=== PATIENT | male | born 1970 | race Caucasian/White ===

== ENCOUNTER 2019-12-05 12:39 | Observation (INO) | payer MEDICAID, OTHER ==
[~2019-12-05] VITALS: Ht 190.5 cm; Wt 133.4 kg
[2019-12-05 13:00] LABS: BASOPHILS % (AUTO) 0 % (0-10); EOSINOPHILS # (AUTO) 0.1 10^3/uL (0.0-0.3); EOSINOPHILS % (AUTO) 1 % (0-10); HEMATOCRIT 46 % (40-54); HEMOGLOBIN 15.7 G/DL (13.3-17.7); LYMPHOCYTES # (AUTO) 2.9 X 10^3 (1.0-4.0); LYMPHOCYTES % (AUTO) 44 % (12-44); MEAN CORPUSCULAR HEMOGLOBIN 29 PG (25-34); MEAN CORPUSCULAR HGB CONC 34 G/DL (32-36); MEAN CORPUSCULAR VOLUME 86 FL (80-99); MEAN PLATELET VOLUME 8.8 FL (7.4-10.4); MONOCYTES # (AUTO) 0.7 X 10^3 (0.0-1.0); MONOCYTES % (AUTO) 11 % (0-12); NEUTROPHILS # (AUTO) 2.9 X 10^3 (1.8-7.8); NEUTROPHILS % (AUTO) 45 % (42-75); PLATELET COUNT 286 10^3/uL (130-400); RED CELL DISTRIBUTION WIDTH 13.1 % (10.0-14.5); WHITE BLOOD COUNT 6.5 10^3/uL (4.3-11.0)
[2019-12-05] MEDS ORDERED: NITROGLYCERIN 0.4 MG SL TABS BTL 25'S SL PRN ×2 (13:00→15:00)
[2019-12-05] MEDS ORDERED: ASPIRIN 81 MG CHEW (CHILDREN'S ASA) PO ONE (13:00)
--- NOTE | 2019-12-05 13:16 | ED Chest Pain ---
General Chief Complaint: Chest Pain Stated Complaint: CHEST TIGHTNESS Nursing Triage Note: Pt amb to room #10 with c/o L sided chest discomfort radiating to L arm. 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 Pt describes discomfort as tight, sharp, et heavy. Pt states, "I have a thick tongue." Pt reports brief episode of SOA but denies at this time. A&OX4. Nursing Sepsis Screen: No Definite Risk Source: patient Exam Limitations: no limitations History of Present Illness Date Seen by Provider: Dec 05, 2019 Time Seen by Provider: 12:54 Initial Comments Here with report of left-sided chest tightness/discomfort that is associated with shortness of breath. Onset at about 10 AM which is actually 3 hours ago. He has this not uncommonly. Was seen in July of last year at [facility] and [place] and transferred to [facility] in [place]. He had a 3 day inpatient stay related testing as well as stress test and cleared him with the understanding that if he had persistence or return pain he needed to come back for heart catheter. Not long after discharge in July he started getting the c hest pain again that he was controlling with nitroglycerin sublingual. That did help. Today he was out of his nitroglycerin and presented for the chest pain with this story. Does have strong family history with father and brother with heart attack at about his age. There is also strong family history of hypertension and cholesterol problems as well as cancer. Did have diarrheal ill ness a few days ago that is resolving. Does not feel ill effects otherwise now. Timing/Duration: 1-3 hours, intermittent Severity/Quality: moderate, pressure, tightness Location: central Radiation: no radiation Activities at Onset: none Prior CP/Workup: stress test ASA po DIRECTOR GLOBAL: No NTG SL DIRECTOR GLOBAL: No Associated Symptoms: No abdominal pain, No back pain, No diaphoresis, No edema; fatigue; No fever/chills, No nausea/vomiting; shortness of breath; No weakness Allergies and Home Medications Allergies Coded Allergies: No Known Drug Allergies (Unverified , 12/05/19) Patient Home Medication List Home Medication List Reviewed: Yes Review of Systems Review of Systems Constitutional: see HPI EENTM: No Symptoms Reported Respiratory: See HPI, Shortness of Air; Denies Wheezing Cardiovascular: Chest Pain; Denies Edema Gastrointestinal: See HPI Genitourinary: No Symptoms Reported Musculoskeletal: no symptoms reported Skin: no symptoms reported Psychiatric/Neurological: No Symptoms Reported All Other Systems Reviewed Negative Unless Noted: Yes Past Pqwevts-Iszayg-Grolwx Hx Past Med/Social Hx: Reviewed Nursing Past Med/Soc Hx Patient Social History Alcohol Use: Denies Use Recreational Drug Use: No Smoking Status: Never a Smoker 2nd Hand Smoke Exposure: No Recent Foreign Travel: No Contact w/Someone Who Travel: No Recent Infectious Disease Expo: No Recent Hopitalizations: No Seasonal Allergies Seasonal Allergies: No Past Medical History Surgeries: No Respiratory: No Cardiac: Yes High Cholesterol, Hypertension Neurological: No Genitourinary: No Gastrointestinal: No Musculoskeletal: No Endocrine: No HEENT: No Cancer: No Psychosocial: No Integumentary: No Family Medical History Reviewed Nursing Family Hx No Pertinent Family Hx Physical Exam Vital Signs Vital Signs - First Documented Capillary Refill : Less Than 3 Seconds Height, Weight, BMI Height: '" Weight: lbs. oz. kg; 37.00 BMI Method: General Appearance: No Apparent Distress, WD/WN HEENT: PERRL/EOMI, Pharynx Normal Neck: Non Tender, Supple Respiratory: Lungs Clear, Normal Breath Sounds Cardiovascular: Regular Rate, Rhythm, No Murmur Gastrointestinal: Non Tender, Soft Extremity: Normal Range of Motion, Non Tender Neurologic/Psychiatric: Alert, Oriented x3 Skin: Normal Color, Warm/Dry Progress/Results/Core Measures Results/Orders Lab Results Laboratory Tests Test 12/05/19 12:50 Range/Units White Blood Count 6.5 4.3-11.0 10^3/uL Red Blood Count 5.34 4.35-5.85 10^6/uL Hemoglobin 15.7 13.3-17.7 G/DL Hematocrit 46 40-54 % Mean Corpuscular Volume 86 80-99 FL Mean Corpuscular Hemoglobin 29 25-34 PG Mean Corpuscular Hemoglobin Concent 34 32-36 G/DL Red Cell Distribution Width 13.1 10.0-14.5 % Platelet Count 286 130-400 10^3/uL Mean Platelet Volume 8.8 7.4-10.4 FL Neutrophils (%) (Auto) 45 42-75 % Lymphocytes (%) (Auto) 44 12-44 % Monocytes (%) (Auto) 11 0-12 % Eosinophils (%) (Auto) 1 0-10 % Basophils (%) (Auto) 0 0-10 % Neutrophils # (Auto) 2.9 1.8-7.8 X 10^3 Lymphocytes # (Auto) 2.9 1.0-4.0 X 10^3 Monocytes # (Auto) 0.7 0.0-1.0 X 10^3 Eosinophils # (Auto) 0.1 0.0-0.3 10^3/uL Basophils # (Auto) 0.0 0.0-0.1 10^3/uL Prothrombin Time 14.2 12.2-14.7 SEC INR Comment 1.1 0.8-1.4 Activated Partial Thromboplast Time 28 24-35 SEC Sodium Level 139 135-145 MMOL/L Potassium Level 4.2 3.6-5.0 MMOL/L Chloride Level 105 98-107 MMOL/L Carbon Dioxide Level 25 21-32 MMOL/L Anion Gap 9 5-14 MMOL/L Blood Urea Nitrogen 16 7-18 MG/DL Creatinine 1.26 0.60-1.30 MG/DL Estimat Glomerular Filtration Rate > 60 BUN/Creatinine Ratio 13 Glucose Level 99 70-105 MG/DL Calcium Level 9.1 8.5-10.1 MG/DL Corrected Calcium 8.7 8.5-10.1 MG/DL Magnesium Level 2.0 1.6-2.4 MG/DL Total Bilirubin 0.3 0.1-1.0 MG/DL Aspartate Amino Transf (AST/SGOT) 20 5-34 U/L Alanine Aminotransferase (ALT/SGPT) 19 0-55 U/L Alkaline Phosphatase 71 40-136 U/L Myoglobin 57.1 10.0-92.0 NG/ML Troponin I < 0.028 <0.028 NG/ML Total Protein 7.2 6.4-8.2 GM/DL Albumin 4.5 3.2-4.5 GM/DL My Orders Orders - GEOVANI GALVIN MD Nitroglycerin 0.4 Mg Btl 25's (Nitrostat (12/05/19 13:00) Aspirin Chewable Tablet (Baby Aspirin Ch (12/05/19 13:00) Metoprolol Succinate (Xl) Tab (Toprol Xl (12/06/19 09:00) Metoprolol Succinate (Xl) Tab (Toprol Xl (12/05/19 14:10) Medications Given in ED Current Medications Medications Dose Ordered Sig/Viji Route Start Time Stop Time Status Last Admin Dose Admin Aspirin 324 mg ONCE ONCE PO 12/05/19 13:00 12/05/19 13:01 DC 12/05/19 13:03 324 MG Nitroglycerin 0.4 mg UD PRN SL 12/05/19 13:00 12/05/19 13:04 0.4 MG Vital Signs/I&O 12/05/19 12/05/19 12:39 12:39 Temp 35.2 Pulse 101 Resp 20 B/P (MAP) 148/103 (118) Pulse Ox 97 O2 Delivery Room Air Room Air Blood Pressure Mean: 118 Progress Progress Note : Progress Note Seen and evaluated. IV, labs, EKG and chest x-ray ordered. ASA 324 mg by mouth. Nitroglycerin sublingual ordered. Toprol-XL 50 mg by mouth. Monitor patient. I did discuss the case with Dr. Jacob and he is recommending admission with likely her tomorrow. Patient is from [facility] and his doctor is over there as association with the [facility]. 1412: Labs and results reviewed with both Dr. Jacob and Dr. Munguia. Dr. Becerra accepts patient for admission, observation status with Dr. Jacob on consult. Anticipate heart catheterization tomorrow. All of this was discussed with the patient who agrees. Initial ECG Impression Date: Dec 05, 2019 Initial ECG Impression Time: 12:43 Initial ECG Rate: 95 Initial ECG Rhythm: Normal Sinus Comment Sinus rhythm with left atrial abnormality. No evidence of ST elevation AR. No previous available for comparison. Interpreted by me. Diagnostic Imaging Diagonstic Imaging: Xray Plain Films/CT/US/NM/MRI: chest Comments [facility], [facility]. [place], [place] NAME: NAZANINJOSSY DUMONT Isidoro [facility] REC#: [id number] PT STATUS: REG ER : 1970 PHYSICIAN: MARELY DELGADO APRN ADMIT DATE: 12/05/19/ER Draft Date of Exam:12/05/19 CHEST 1 VIEW, AP/PA ONLY INDICATION: Left-sided chest discomfort radiating to the left arm. TIME OF EXAM: 1:08 p.m. COMPARISON: No prior studies are available for comparison. FINDINGS: Spinal stimulator overlies the mid thoracic spine. The heart size is normal. The pulmonary vascularity is normal. No infiltrates are seen. There is no effusion or pneumothorax. IMPRESSION: No acute cardiopulmonary process is detected. Dictated on workstation # [id number] Dict: 12/05/19 1323 Trans: 12/05/19 1325 [facility] [id number] Interpreted by: UMANG ANN MD Electronically signed by: Departure Communication (Admissions) Time/Spoke to Admitting Phy: 14:12 Time/Spoke to Consulting Phy: 13:30 Impression Primary Impression: Chest pain Qualified Codes: R07.9 - Chest pain, unspecified Disposition: ADMITTED INPATIENT Condition: Stable Admissions Decision to Admit Reason: Admit from ER (Trauma) Decision to Admit/Date: Dec 05, 2019 Time/Decision to Admit Time: 13:30 Departure-Patient Inst. Referrals: DAWN BURTON DO (PCP) Primary Care Physician GEOVANI GALVIN MD Dec 05, 2019 13:16
[2019-12-05 13:22] LABS: INR 1.1 (0.8-1.4); PROTHROMBIN TIME PATIENT 14.2 SEC (12.2-14.7)
--- NOTE | 2019-12-05 13:25 | Diagnostic Imaging Report ---
INDICATION: Left-sided chest discomfort radiating to the left arm. TIME OF EXAM: 1:08 p.m. COMPARISON: No prior studies are available for comparison. FINDINGS: Spinal stimulator overlies the mid thoracic spine. The heart size is normal. The pulmonary vascularity is normal. No infiltrates are seen. There is no effusion or pneumothorax. IMPRESSION: No acute cardiopulmonary process is detected. Dictated by: Dictated on workstation # [id number]
[2019-12-05 13:32] LABS: ALANINE AMINOTRANSFERASE 19 U/L (0-55); ALBUMIN 4.5 GM/DL (3.2-4.5); ALKALINE PHOSPHATASE 71 U/L (40-136); BILIRUBIN,TOTAL 0.3 MG/DL (0.1-1.0); BUN/CREATININE RATIO 13; CALCIUM 9.1 MG/DL (8.5-10.1); CARBON DIOXIDE 25 MMOL/L (21-32); CHLORIDE 105 MMOL/L (98-107); CREATININE SERUM 1.26 MG/DL (0.60-1.30); GFR ESTIMATED > 60; GLUCOSE 99 MG/DL (70-105); POTASSIUM 4.2 MMOL/L (3.6-5.0); SODIUM 139 MMOL/L (135-145); TOTAL PROTEIN 7.2 GM/DL (6.4-8.2)
[2019-12-05] MEDS ORDERED: meTOproloL SUCCINATE 50 MG (TOPROL XL) TAB PO ONE (14:10)
[2019-12-05] MEDS ORDERED: CATHETER FLUSH 10 ML SYR IV PRN (15:00)
[2019-12-05] MEDS ORDERED: ONDANSETRON 4 MG/2 ML (SDV) Z0FRAN IV PRN (15:00)
[2019-12-05] MEDS ORDERED: morphine INJ 4 MG/ML 1 ML (VIAL/SYRINGE) IV PRN (15:00)
[2019-12-05 15:02] VITALS: BP 156/84
--- NOTE | 2019-12-05 15:14 | Consultation-Cardiology ---
HPI-Cardiology Cardiology Consultation: Date of Consultation 12/05/19 Time Seen by a Provider: 15:05 Date of Admission 12-05-2019 Attending Physician Claudia Munguia MD Admitting Physician Marcelino Tate Consulting Physician Therese Jacob MD HPI: Chief Complaint: Chest pain Mr. Thacker is a 49 year old male admitted to ICU 5 from the ED. He reports he has been having intermittent episodes of left sided chest pain for the last 6 months. He states he has been taking nitro sublingual approx twice a month for chest pain. He reports it has been more frequent the last couple days. 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 He reports feeling SOB, hard heartbeat, dizziness. He states he felt warm and flushed. He states the pain was dull, but with increased emotional distress would become sharp. He reports it persisted for several hours and he came to the ED. He reports he received nitro in the ED and the pain resolved and he is currently pain free. He reports he has been waking up with headaches and felt his blood pressure was elevated, so he has been taking 10mg of Lisinopril, which belongs to his sister. He denies any syncope or near syncope. He reports occ bilat LE swelling in ankles, least in the morning and worse at the end of the day. He reports he has had some diarrhea. He denies any n/v. H does not report any fever or chills. He reports he smokes occ marijuana, last usage in October. He states he was seen last year at [facility] in [place] for similar symptoms; at which time he had a stress test and echo. He reports he was told they were normal. Review of Systems-Cardiology Review of Systems Constitutional: No chills, No fever; tiredness Eyes: No vision change Ears/Nose/Throat: No epistaxis, No recent hearing loss Respiratory: As described under HPI Cardiovascular: As described under HPI Gastrointestinal: As described under HPI Genitourinary: No dysuria, No hematuria Musculoskeletal: back pain (chronic) Skin: No rash on exposed areas, No ulcerations on exposed areas Psychiatric/Neurological: anxiety, depression; No seizure, No focal weakness, No syncope Hematologic: No bleeding abnormalities All Other Systems Reviewed Negative Unless Noted: Yes EJH-Tqlqpk-Jiivft Hx Patient Social History Alcohol Use: Denies Use Recreational Drug Use: No Smoking Status: Never a Smoker 2nd Hand Smoke Exposure: No Recent Foreign Travel: No Recent Infectious Disease Expo: No Hospitalization with Isolation: Denies Immunizations Up To Date Date of Influenza Vaccine: Nov 01, 2019 Past Medical History PMH As described under Assessment. Family Medical History Family Medical History: He reports his father had an LA in his early 50's with CABG and subsequent cardiac stent placement. His brother had an LA at age 50. Allergies and Home Medications Allergies Coded Allergies: No Known Drug Allergies (Unverified , 12/05/19) Home Medications Albuterol Sulfate 1 Puff Puff, 2 PUFF IH Q4H 1 PUFF = 90 MCG Prescribed by: TRACE GORDILLO on 12/05/191812 Alprazolam 0.5 Mg Tablet, 0.5 MG PO HS Prescribed by: TRACE GORDILLO on 12/05/191812 Cetirizine HCl 10 Mg Tablet, 10 MG PO DAILY Prescribed by: TRACE GORDILLO on 12/05/191812 Cimetidine HCl 300 Mg/5 Ml Solution, 300 MG PO DAILY Prescribed by: TRACE GORDILLO on 12/05/191812 Desvenlafaxine 50 Mg Tab.er.24, 50 MG PO HS Prescribed by: TRACE GORDILLO on 12/05/191812 Gemfibrozil 600 Mg Tablet, 600 MG PO DAILY Prescribed by: TRACE GORDILLO on 12/05/191812 Hyoscyamine Sulfate 0.125 Mg Tablet, 0.125 MG PO PRN Prescribed by: TRACE GORDILLO on 12/05/191812 Testosterone Cypionate 100 Mg/1 Ml Vial, 100 MG IM NEEDED TWICE MONTHLY Prescribed by: TRACE GORDILLO on 12/05/191813 Physical Exam-Cardiology Physical Exam Vital Signs/I&O Capillary Refill : Less Than 3 Seconds Constitutional: AAO x 3, well-developed, well-nourished HEENT: PERRL, hearing is well preserved, oral hygience is good Neck: No carotid bruit; carotid pulses are 2 + bilaterally Respiratory: No accessory muscle use, No respiratory distress; chest expansion is symmetric, chest is bilaterally symmetric, lungs clear to auscultation Cardiovascular: regular rate-rhythm; No JVD; S1 and S2 Gastrointestinal: No tender; soft, round, audible bowel sounds Extremities: no lower extremity edema bilateral Neurologic/Psychiatric: grossly intact (moves all extremities) Skin: No rash on exposed areas, No ulcerations on exposed areas Data Review Labs Radiology NAME: JOSSY THACKER MED REC#: [id number] PT STATUS: REG ER : 1970 PHYSICIAN: MARELY DELGADO APRN ADMIT DATE: 12/05/19/ER Draft Date of Exam:12/05/19 CHEST 1 VIEW, AP/PA ONLY INDICATION: Left-sided chest discomfort radiating to the left arm. TIME OF EXAM: 1:08 p.m. COMPARISON: No prior studies are available for comparison. FINDINGS: Spinal stimulator overlies the mid thoracic spine. The heart size is normal. The pulmonary vascularity is normal. No infiltrates are seen. There is no effusion or pneumothorax. IMPRESSION: No acute cardiopulmonary process is detected. Dictated on workstation # [id number] Dict: 12/05/19 1323 Trans: 12/05/19 1325 [facility] [id number] Interpreted by: UMANG ANN MD Electronically signed by: ECG Impression ECG Initial ECG Rhythm: Normal Sinus A/P-Cardiology Assessment/Admission Diagnosis Chest pain of undetermined etiology Reports stress test and echo last year at [facility] in [place], [place] HTN HLP Sleep apnea - CPAP tx Anxiety/depression GERD IBS Reported h/o gastric polyps Chronic back pain with multiple surgeries and implanted stimulator Multiple bilat shoulder, elbow and wrist surgeries Occ marijuana usage - reports last usage in October Asthma Family h/o early CAD (father and brother in their 50's) Testosterone replacement Discussion and Recomendations Chest pain of undetermined etiology - no evidence of ACS thus far Based on his symptoms, risk factors we advise cardiac cath and he, himself is requesting cardiac cath. We have discussed the procedure, risks, benefits and potential complications of cardiac cath with possible ad hoc coronary intervention. He provides informed consent. We will proceed tomorrow or sooner if needed Continue BB and ASA Lovenox for DVT prophylaxis Echocardiogram to eval structure Further recs will be based on his hospital course We would like to thank medical services for this consult Clinical Quality Measures AMI/AHF: ASA po Prior to arrival: SHARON Rios 6, 2020 15:14
[2019-12-05 16:00] VITALS: BP 139/90
[2019-12-05] MEDS ORDERED: ENOXAPARIN 40 MG/0.4 ML (LOVENOX) SYR SQ SCH (16:30)
[2019-12-05 16:59] VITALS: BP 131/79
--- NOTE | 2019-12-05 17:28 | Consultation-Cardiology ---
HPI-Cardiology Cardiology Consultation: Date of Consultation 12/05/19 Time Seen by a Provider: 16:30 Date of Admission Attending Physician Claudia Munguia MD Admitting Physician Marcelino Tate Consulting Physician JOHN MCGUIRE MD, MA, FACP, FACC, [employer], CCDS HPI: Chief Complaint: CC: Chest pain HPI Mr. Thacker is a 49 year old male admitted to ICU 5 from the ED. He reports he has been having intermittent episodes of left sided chest pain for the last 6 months. He states he has been taking nitro sublingual approx twice a month for chest pain. He reports it has been more frequent the last couple days. 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 He reports feeling SOB, hard heartbeat, dizziness. He states he felt warm and flushed. He states the pain was dull, but with increased emotional distress would become sharp. He reports it persisted for several hours and he came to the ED. He reports he received nitro in the ED and the pain resolved and he is currently pain free. He reports he has been waking up with headaches and felt his blood pressure was elevated, so he has been taking 10mg of Lisinopril, which belongs to his sister. He denies any syncope or near syncope. He reports occ bilat LE swelling in ankles, least in the morning and worse at the end of the day. He reports he has had some diarrhea. He denies any n/v. H does not report any fever or chills. He reports he smokes occ marijuana, last usage in October. He states he was seen last year at [facility] in [place] for similar symptoms; at which time he had a stress test and echo. He reports he was told they were normal. Review of Systems-Cardiology Review of Systems Constitutional: No chills, No fever; tiredness Eyes: No vision change Ears/Nose/Throat: No epistaxis, No recent hearing loss Respiratory: As described under HPI Cardiovascular: As described under HPI Gastrointestinal: As described under HPI Genitourinary: No dysuria, No hematuria Musculoskeletal: back pain (chronic) Skin: No rash on exposed areas, No ulcerations on exposed areas Psychiatric/Neurological: anxiety, depression; No seizure, No focal weakness, No syncope Hematologic: No bleeding abnormalities All Other Systems Reviewed Negative Unless Noted: Yes WLG-Vgjsqp-Uzvblj Hx Patient Social History Alcohol Use: Denies Use Recreational Drug Use: No Smoking Status: Never a Smoker 2nd Hand Smoke Exposure: No Recent Foreign Travel: No Recent Infectious Disease Expo: No Hospitalization with Isolation: Denies Immunizations Up To Date Date of Influenza Vaccine: Nov 01, 2019 Past Medical History PMH As described under Assessment. Family Medical History Family Medical History: He reports his father had an NJ in his early 50's with CABG and subsequent cardiac stent placement. His brother had an NJ at age 50. Allergies and Home Medications Allergies Coded Allergies: No Known Drug Allergies (Unverified , 12/05/19) Patient Home Medication List Home Medication List Reviewed: Yes Physical Exam-Cardiology Physical Exam Vital Signs/I&O 12/05/19 12/05/19 12/05/19 12/05/19 12:39 12:39 14:45 15:02 Temp 35.2 35.2 36.8 Pulse 101 92 87 Resp 20 18 16 B/P (MAP) 148/103 (118) 115/77 (118) 156/84 Pulse Ox 97 98 97 O2 Delivery Room Air Room Air Room Air Room Air 12/05/19 12/05/19 12/05/19 12/05/19 15:15 16:00 16:30 16:59 Temp 36.8 Pulse 85 Resp 18 B/P (MAP) 139/90 (106) 131/79 (96) Pulse Ox 97 O2 Delivery Room Air Room Air Room Air Capillary Refill : Less Than 3 Seconds Constitutional: AAO x 3, well-developed, well-nourished HEENT: PERRL, hearing is well preserved, oral hygience is good Neck: No carotid bruit; carotid pulses are 2 + bilaterally Respiratory: No accessory muscle use, No respiratory distress; chest expansion is symmetric, chest is bilaterally symmetric, lungs clear to auscultation Cardiovascular: regular rate-rhythm; No JVD; S1 and S2 Gastrointestinal: No tender; soft, round, audible bowel sounds Extremities: no lower extremity edema bilateral Neurologic/Psychiatric: grossly intact (moves all extremities) Skin: No rash on exposed areas, No ulcerations on exposed areas Data Review Labs Laboratory Tests 12/05/19 12:50: White Blood Count 6.5, Red Blood Count 5.34, Hemoglobin 15.7, Hematocrit 46, Mean Corpuscular Volume 86, Mean Corpuscular Hemoglobin 29, Mean Corpuscular Hemoglobin Concent 34, Red Cell Distribution Width 13.1, Platelet Count 286, Mean Platelet Volume 8.8, Neutrophils (%) (Auto) 45, Lymphocytes (%) (Auto) 44, Monocytes (%) (Auto) 11, Eosinophils (%) (Auto) 1, Basophils (%) (Auto) 0, Neutrophils # (Auto) 2.9, Lymphocytes # (Auto) 2.9, Monocytes # (Auto) 0.7, Eosinophils # (Auto) 0.1, Basophils # (Auto) 0.0, Prothrombin Time 14.2, INR Comment 1.1, Activated Partial Thromboplast Time 28, Sodium Level 139, Potassium Level 4.2, Chloride Level 105, Carbon Dioxide Level 25, Anion Gap 9, Blood Urea Nitrogen 16, Creatinine 1.26, Estimat Glomerular Filtration Rate > 60, BUN/Creatinine Ratio 13, Glucose Level 99, Calcium Level 9.1, Corrected Calcium 8.7, Magnesium Level 2.0, Total Bilirubin 0.3, Aspartate Amino Transf (AST/SGOT) 20, Alanine Aminotransferase (ALT/SGPT) 19, Alkaline Phosphatase 71, Myoglobin 57.1, Troponin I < 0.028, Total Protein 7.2, Albumin 4.5 A/P-Cardiology Assessment/Admission Diagnosis Chest pain of undetermined etiology Reports stress test 2019 at [facility] did not show significant problems but was advised to consider cath if cp recurrent Echo of 12/05/19: LVEF 60-65%, mild to mod enlargement of LA, RVSP 12 mmHg HTN HLP Sleep apnea - CPAP tx Anxiety/depression GERD IBS Reported h/o gastric polyps Chronic back pain with multiple surgeries and implanted stimulator Multiple bilat shoulder, elbow and wrist surgeries Occ marijuana usage - reports last usage in October Asthma Family h/o early CAD (father and brother in their 50's) Testosterone replacement Discussion and Recomendations He has been having frequent symptoms and is concerned about a coronary etiology. He himself is requesting card cath. Based on his symptoms and risk factors, cath appears appropriate. We have discussed the procedure, risks, benefits and potential complications of cardiac cath with possible ad hoc coronary intervention. He provides informed consent. We will proceed tomorrow or sooner if needed Continue BB and ASA Lovenox for DVT prophylaxis Further recs will be based on his hospital course We would like to thank Medical services for this consult Clinical Quality Measures AMI/AHF: ASA po Prior to arrival: No DVT/VTE Risk/Contraindication: Risk Factor Score Per Nursin RFS Level Per Nursing on Admit: 2=Moderate JOHN MCGUIRE MD FACP FAC CCDS Dec 05, 2019 17:28
[2019-12-05 18:05] VITALS: BP 150/82
[2019-12-05] MEDS ORDERED: ALPR0.5T7 PO (18:13)
[2019-12-05] MEDS ORDERED: GEMF600T8 PO (18:13)
[2019-12-05] MEDS ORDERED: HYOS-20 PO (18:13)
[2019-12-05] MEDS ORDERED: CETI10TA17 PO (18:13)
[2019-12-05] MEDS ORDERED: CIME300S4 PO (18:13)
[2019-12-05] MEDS ORDERED: RT-ALBUINH IH (18:13)
[2019-12-05] MEDS ORDERED: DESV50TA14 PO (18:13)
[2019-12-05] MEDS ORDERED: TEST100V3 IM (18:14)
[2019-12-05 19:30] VITALS: BP 132/75
[2019-12-05] MEDS: CATHETER FLUSH 10 ML SYR IV SCH (21:18)
[2019-12-06] VITALS (10 sets, daily range): BP systolic 116–155; BP diastolic 71–86
[2019-12-06 01:40] LABS: BASOPHILS % (AUTO) 0 % (0-10); EOSINOPHILS # (AUTO) 0.2 10^3/uL (0.0-0.3); EOSINOPHILS % (AUTO) 2 % (0-10); HEMATOCRIT 45 % (40-54); HEMOGLOBIN 15.2 G/DL (13.3-17.7); LYMPHOCYTES % (AUTO) 57 % (12-44); MEAN CORPUSCULAR HEMOGLOBIN 29 PG (25-34); MEAN CORPUSCULAR HGB CONC 34 G/DL (32-36); MEAN CORPUSCULAR VOLUME 87 FL (80-99); MEAN PLATELET VOLUME 8.9 FL (7.4-10.4); MONOCYTES # (AUTO) 0.6 X 10^3 (0.0-1.0); MONOCYTES % (AUTO) 9 % (0-12); NEUTROPHILS # (AUTO) 2.3 X 10^3 (1.8-7.8); NEUTROPHILS % (AUTO) 32 % (42-75); PLATELET COUNT 254 10^3/uL (130-400)
[2019-12-06 01:55] LABS: PROTHROMBIN TIME PATIENT 13.8 SEC (12.2-14.7)
[2019-12-06 02:03] LABS: ALANINE AMINOTRANSFERASE 18 U/L (0-55); ALBUMIN 4.1 GM/DL (3.2-4.5); ALKALINE PHOSPHATASE 65 U/L (40-136); BILIRUBIN,TOTAL 0.3 MG/DL (0.1-1.0); BUN/CREATININE RATIO 14; CALCIUM 8.9 MG/DL (8.5-10.1); CARBON DIOXIDE 22 MMOL/L (21-32); CHLORIDE 106 MMOL/L (98-107); CHOLESTEROL 187 MG/DL (< 200); CREATININE SERUM 0.96 MG/DL (0.60-1.30); GFR ESTIMATED > 60; GLUCOSE 93 MG/DL (70-105); HDL CHOLESTEROL 26 MG/DL (40-60); POTASSIUM 3.8 MMOL/L (3.6-5.0); SODIUM 138 MMOL/L (135-145); TOTAL PROTEIN 6.5 GM/DL (6.4-8.2); TRIGLYCERIDES 257 MG/DL (<150); VLDL CHOLESTEROL 51 MG/DL (5-40)
[2019-12-06 04:14] LABS: MAGNESIUM 2.1 MG/DL (1.6-2.4); PHOSPHORUS 3.9 MG/DL (2.3-4.7)
[2019-12-06] MEDS ORDERED: KCL 20 MEQ TAB (K-DUR) PO SCH (06:00)
[2019-12-06] MEDS ORDERED: POTASSIUM CL 10MEQ/50ML IVPB 50 ML IV SCH (06:00)
[2019-12-06] MEDS ORDERED: NS IV 1000 ML 1,000 ML IV SCH ×2 (06:00→11:37)
[2019-12-06] MEDS ORDERED: MAGNESIUM 1 GM/100 ML IVPB 100 ML IV SCH (06:00)
[2019-12-06] MEDS: CATHETER FLUSH 10 ML SYR IV SCH ×2 (06:32→13:35)
[2019-12-06] MEDS ORDERED: meTOproloL SUCCINATE 50 MG (TOPROL XL) TAB PO SCH ×3 (09:00)
[2019-12-06] MEDS ORDERED: ASPIRIN E.C. 81 MG (ECOTRIN) TAB PO SCH (09:00)
[2019-12-06] MEDS ORDERED: NS IV 1000 ML 0 ML ONE (09:45)
[2019-12-06] MEDS ORDERED: HEParin (CATH LAB) 2,000 ML IV ONE (09:45)
[2019-12-06] MEDS ORDERED: LIDOCAINE 1% INJ 20 ML 20 ML VIAL ONE (09:45)
[2019-12-06] MEDS ORDERED: MIDAZOLAM 5 MG/5 ML (VERSED) VIAL ONE (10:10)
[2019-12-06] MEDS ORDERED: fentaNYL INJECTION 100 MCG/2 ML AMP ONE (10:10)
--- NOTE | 2019-12-06 10:36 | NUR ---
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
[2019-12-06] MEDS ORDERED: PATIENT MAY USE OWN MEDS, ALL PO SCH (11:45)
--- NOTE | 2019-12-06 11:46 | Progress Note - Cardiology ---
Cardiology SOAP Progress Note Subjective: No cp today No shortness of breath or palp or syncope No n/v/d Objective: I&O/Vital Signs 12/06/19 12/06/19 12/06/19 12/06/19 00:00 00:08 01:00 03:50 Temp 36.4 36.5 Pulse 61 64 62 Resp 18 18 B/P (MAP) 116/72 (87) 131/81 (98) Pulse Ox 99 99 97 O2 Delivery Nasal Cannula Nasal Cannula Nasal Cannula O2 Flow Rate 2.00 2.00 2.00 12/06/19 12/06/19 12/06/19 12/06/19 04:00 07:00 08:00 08:00 Temp 36.6 Pulse 67 Pulse Ox 97 98 O2 Delivery Nasal Cannula Nasal Cannula O2 Flow Rate 2.00 2.00 12/06/19 12/06/19 08:00 09:00 Pulse 77 B/P (MAP) 135/82 (99) Pulse Ox 96 98 O2 Delivery Nasal Cannula Nasal Cannula O2 Flow Rate 2.00 2.00 12/05/19 23:59 Intake Total 1000 ml Output Total 500 ml Balance 500 ml Constitutional: AAO x 3, well-developed, well-nourished Respiratory: No accessory muscle use, No respiratory distress; chest expansion is symmetric, chest is bilaterally symmetric, lungs clear to auscultation Cardiovascular: regular rate-rhythm; No JVD; S1 and S2 Gastrointestional: No tender; soft, round, audible bowel sounds Extremities: no lower extremity edema bilateral Neurologic/Psychiatric: grossly intact (moves all extremities) Skin: No rash on exposed areas, No ulcerations on exposed areas Results/Procedures: Labs Laboratory Tests 12/05/19 12:50: White Blood Count 6.5, Red Blood Count 5.34, Hemoglobin 15.7, Hematocrit 46, Mean Corpuscular Volume 86, Mean Corpuscular Hemoglobin 29, Mean Corpuscular Hemoglobin Concent 34, Red Cell Distribution Width 13.1, Platelet Count 286, Mean Platelet Volume 8.8, Neutrophils (%) (Auto) 45, Lymphocytes (%) (Auto) 44, Monocytes (%) (Auto) 11, Eosinophils (%) (Auto) 1, Basophils (%) (Auto) 0, Neutrophils # (Auto) 2.9, Lymphocytes # (Auto) 2.9, Monocytes # (Auto) 0.7, Eosinophils # (Auto) 0.1, Basophils # (Auto) 0.0, Prothrombin Time 14.2, INR Comment 1.1, Activated Partial Thromboplast Time 28, Sodium Level 139, Potassium Level 4.2, Chloride Level 105, Carbon Dioxide Level 25, Anion Gap 9, Blood Urea Nitrogen 16, Creatinine 1.26, Estimat Glomerular Filtration Rate > 60, BUN/Creatinine Ratio 13, Glucose Level 99, Calcium Level 9.1, Corrected Calcium 8.7, Magnesium Level 2.0, Total Bilirubin 0.3, Aspartate Amino Transf (AST/SGOT) 20, Alanine Aminotransferase (ALT/SGPT) 19, Alkaline Phosphatase 71, Myoglobin 57.1, Troponin I < 0.028, Total Protein 7.2, Albumin 4.5 12/05/19 18:55: Troponin I < 0.028 12/06/19 01:28: White Blood Count 7.0, Red Blood Count 5.21, Hemoglobin 15.2, Hematocrit 45, Mean Corpuscular Volume 87, Mean Corpuscular Hemoglobin 29, Mean Corpuscular Hemoglobin Concent 34, Red Cell Distribution Width 13.0, Platelet Count 254, Mean Platelet Volume 8.9, Neutrophils (%) (Auto) 32L, Lymphocytes (%) (Auto) 57H , Monocytes (%) (Auto) 9, Eosinophils (%) (Auto) 2, Basophils (%) (Auto) 0, Neutrophils # (Auto) 2.3, Lymphocytes # (Auto) 4.0, Monocytes # (Auto) 0.6, Eosinophils # (Auto) 0.2, Basophils # (Auto) 0.0, Prothrombin Time 13.8, INR Comment 1.0, Activated Partial Thromboplast Time 31, Sodium Level 138, Potassium Level 3.8, Chloride Level 106, Carbon Dioxide Level 22, Anion Gap 10, Blood Urea Nitrogen 13, Creatinine 0.96, Estimat Glomerular Filtration Rate > 60, BUN/Creatinine Ratio 14, Glucose Level 93, Calcium Level 8.9, Corrected Calcium 8.8, Magnesium Level 2.1, Total Bilirubin 0.3, Aspartate Amino Transf (AST/SGOT) 17, Alanine Aminotransferase (ALT/SGPT) 18, Alkaline Phosphatase 65, Troponin I < 0.028, Total Protein 6.5, Albumin 4.1, Phosphorus Level 3.9, Triglycerides Level 257H, Cholesterol Level 187, LDL Cholesterol Direct 120, VLDL Cholesterol 51H, HDL Cholesterol 26L Laboratory Tests 12/05/19 12:50 12/06/19 01:28 A/P: Assessment: Chest pain, noncardiac, undetermined etiology Card cath of 12/06/19: No angiographically significant CAD, normal LVEDP, LVEF 60- 65% Echo of 12/05/19: LVEF 60-65%, mild to mod enlargement of LA, RVSP 12 mmHg HTN HLP Sleep apnea - CPAP tx Anxiety/depression GERD IBS Reported h/o gastric polyps Chronic back pain with multiple surgeries and implanted stimulator Multiple bilat shoulder, elbow and wrist surgeries Occ marijuana usage - reports last usage in October Asthma Family h/o early CAD (father and brother in their 50's) Testosterone replacement Plan: I reviewed and discussed with him the cath findings Focus of CV management is on risk factor mod. This was discussed and questions answered We advised further w/u for cp with his pcp Outpt cardiac f/u advised Clinical Quality Measures AMI/AHF: ASA po Prior to arrival: JOHN Clifford MD FACP FAC CCDS Dec 06, 2019 11:46
[2019-12-06] MEDS ORDERED: oxyCODONE/APAP 5/325MG (PERCOCET 5) TABLET PO ONE (12:00)
--- NOTE | 2019-12-06 13:08 | CARDIAC CATHETERIZATION ---
DATE OF SERVICE: 12/06/2019 CARDIAC CATHETERIZATION REPORT The patient is a 49-year-old man with coronary artery disease risk factors who has had frequent chest pains for the last one year. He states that he had normal stress test last year in [place], but was told that if he continues to have chest pain, he may wish to have cardiac catheterization. He has continued to have chest pain and feels concerned about coronary etiology. Cardiac catheterization was carried out today after having obtained informed consent. DESCRIPTION OF PROCEDURE: He was brought to the cardiac catheterization laboratory in a fasting state. Right groin was prepared and draped in the usual sterile fashion. Lidocaine 1% for local anesthesia. Modified Seldinger technique was used to advance a 5-Libyan sheath in right femoral artery, 5-Libyan JL4 catheter for left coronary angiography, 5-Libyan JR4 catheter for right coronary angiography, 5-Libyan pigtail catheter was used for left heart catheterization and left ventricular angiography. At the end of the procedure, manual pressure was used to achieve hemostasis following sheath removal. He tolerated the procedure well. HEMODYNAMICS: Left ventricular end-diastolic pressure following coronary angiography was 11 mmHg. There was no significant pressure gradient on pullback across the aortic valve. Ascending aortic pressure was 109/73 with a mean of 89 mmHg. CORONARY ANGIOGRAPHY: Left main coronary artery, left anterior descending artery, left circumflex artery, and right coronary artery are free of any angiographically significant disease. Right coronary artery is dominant. CONCLUSIONS: 1. No angiographically significant coronary artery disease. 2. Normal global left ventricular systolic function. 3. Normal left ventricular end-diastolic pressure. 4. Left ventricular ejection fraction is 60% to 65%. DISCUSSION AND RECOMMENDATIONS: Based on results of the study, chest discomfort does not appear to be of coronary origin. Continuing risk factor modification is advised. Outpatient followup is advised. We have advised him to follow up with his family physician for further evaluation of his chest pain. Job ID: [id number] DocumentID: [id number] Dictated Date: 12/06/2019 11:07:07 Photo Tech Date: 12/06/2019 13:07:47 Dictated By: JOHN MCGUIRE MD, MA, FACP, FACC,
--- NOTE | 2019-12-06 13:38 | Discharge Summary ---
Discharge Summary Hospital Course Was the Problem List Reviewed?: Yes Hospital Course Date of Admission: Dec 05, 2019 at 14:16 Admission Diagnosis : Chest pain Family Physician/Provider: Date of Discharge: 12/06/19 Discharge Diagnosis: Noncardiac chest pain Hospital Course: Rhonda Thacker is a 49-year-old male who presented with chest pain. Cardiology was consulted and due to his risk factors and previous history a left heart catheterization was performed. This revealed normal coronary arteries. No intervention was performed. His chest pain was likely due to anxiety. He should follow-up with his primary care physician. Labs and Pending Lab Test: Laboratory Tests 12/05/19 18:55: Troponin I < 0.028 12/06/19 01:28: Troponin I < 0.028, White Blood Count 7.0, Red Blood Count 5.21, Hemoglobin 15.2, Hematocrit 45, Mean Corpuscular Volume 87, Mean Corpuscular Hemoglobin 29, Mean Corpuscular Hemoglobin Concent 34, Red Cell Distribution Width 13.0, P latelet Count 254, Mean Platelet Volume 8.9, Neutrophils (%) (Auto) 32L, Lymphocytes (%) (Auto) 57H, Monocytes (%) (Auto) 9, Eosinophils (%) (Auto) 2, Basophils (%) (Auto) 0, Neutrophils # (Auto) 2.3, Lymphocytes # (Auto) 4.0, Monocytes # (Auto) 0.6, Eosinophils # (Auto) 0.2, Basophils # (Auto) 0.0, Prothrombin Time 13.8, INR Comment 1.0, Activated Partial Thromboplast Time 31, Sodium Level 138, Potassium Level 3.8, Chloride Level 106, Carbon Dioxide Level 22, Anion Gap 10, Blood Urea Nitrogen 13, Creatinine 0.96, Estimat Glomerular Filtration Rate > 60, BUN/Creatinine Ratio 14, Glucose Level 93, Calcium Level 8.9, Corrected Calcium 8.8, Phosphorus Level 3.9, Magnesium Level 2.1, Total Bilirubin 0.3, Aspartate Amino Transf (AST/SGOT) 17, Alanine Aminotransferase (ALT/SGPT) 18, Alkaline Phosphatase 65, Total Protein 6.5, Albumin 4.1, Triglycerides Level 257H, Cholesterol Level 187, LDL Cholesterol Direct 120, VLDL Cholesterol 51H, HDL Cholesterol 26L Home Meds Active Testosterone Cypionate 100 Mg/1 Ml Vial 100 Mg IM NEEDED 7 Days TWICE MONTHLY Gemfibrozil 600 Mg Tablet 600 Mg PO DAILY 30 Days Cimetidine (Cimetidine HCl) 300 Mg/5 Ml Solution 300 Mg PO DAILY 30 Days Hyoscyamine Sulfate 0.125 Mg Tablet 0.125 Mg PO PRN 30 Days Desvenlafaxine ER (Desvenlafaxine) 50 Mg Tab.er.24 50 Mg PO HS 30 Days Cetirizine HCl 10 Mg Tablet 10 Mg PO DAILY 30 Days Alprazolam 0.5 Mg Tablet 0.5 Mg PO HS 7 Days Proair Hfa (Albuterol Sulfate) 1 Puff Puff 2 Puff IH Q4H 30 Days 1 PUFF = 90 MCG Assessment/Pt Instructions Take medications as prescribed. Follow up with her primary care physician. Discharge Planning: <30 minutes discharge planning Discharge Instructions Discharge Diet: No Restrictions Activity as Tolerated: Yes Discharge Physical Examination Vital Signs Vital Signs Date Time Temp Pulse Resp B/P (MAP) Pulse Ox O2 Delivery O2 Flow Rate FiO2 12/06/19 13:00 73 13 98 Room Air 12/06/19 12:00 36.5 12/06/19 11:30 2.00 General Appearance: No Apparent Distress, WD/WN Respiratory: Lungs Clear, Normal Breath Sounds, No Respiratory Distress Cardiovascular: Regular Rate, Rhythm, No Edema, No Murmur Gastrointestinal: Normal Bowel Sounds, Non Tender, Soft Extremity: Normal Inspection, Non Tender, No Pedal Edema Skin: Normal Color, Warm/Dry Neurologic/Psychiatric: Alert, Oriented x3, No Motor/Sensory Deficits, Normal Mood/Affect Allergies: Coded Allergies: No Known Drug Allergies (Unverified , 12/05/19) Discharge Summary Date of Admission Dec 05, 2019 at 14:16 Date of Discharge Discharge Date: Dec 06, 2019 Discharge Time: 08:25 Admission Diagnosis Chest pain Consults/Procedures Consulations Cardiology Procedures Left heart catheterization Discharge Diagnosis (1) Non-cardiac chest pain Status: Resolved Clinical Quality Measures AMI/AHF: ASA po Prior to arrival: No DVT/VTE Risk/Contraindication: Risk Factor Score Per Nursin RFS Level Per Nursing on Admit: 2=Moderate CASTILLO BOYD MD Dec 06, 2019 13:38
--- OUTSIDE RECORDS SUMMARY | 2019-12-09 12:44 | XMS REPORT ---
Author Author Rhonda ANDERSON Organization [facility] Address [address] [place], [place] [address] Care Team Providers Care Section Chief Name Role Phone SUJIT ANDERSON PCP SUJIT ANDERSON PreferredProvider Allergies and Adverse Reactions Name Reaction Notes No known drug allergy Plan of Treatment Not available. Medications Active Name Start Date Estimated Completion Date SIG Co mments gemfibrozil 600 mg oral tablet 10/04/2017 t khurram 1 tablet (600 mg) by oral route 2 times per day 30 minutes before morning and evening meal nitroglycerin 0.4 mg sublingual tablet, sublingual 12/26/2017 place 1 tablet (0.4 mg) by buccal route at the first sign of an attack; no more than 3 tabs are recommended within a 15 minute period. EpiPen 0.3 mg/0.3 mL injection auto-injector 12/26/2017 inject 0.3 milliliter (0.3 mg) by intramuscular route once as needed for anaphylaxis EpiPen 0.3 mg/0.3 mL injection auto-injector 12/26/2017 inject 0.3 milliliter (0.3 mg) by intramuscular route once as needed for anaphylaxis Levsin 0.125 mg oral tablet take 1 tablet (0.125 mg) by oral route every 4 hours as needed Zantac 300 mg oral tablet take 1 tablet (300 mg) by oral route once daily at bedtime hydrocodone-ibuprofen 7.5-200 mg oral tablet 08/12/2018 take 1 tablet by oral route every 6 hours as needed for pain not to exceed 5 tablets in 24hrs methylprednisolone 4 mg oral tablets,dose pack 11/05/2018 TAKE DIRECTED cyclobenzaprine 10 mg oral tablet 11/05/2018 take 1 tablet (10 mg) by oral route 3 times per day cyanocobalamin (vitamin B-12) 1,000 mcg/mL injection solution 11/05/2018 inject 1 milliliter (1,000 mcg) by intramuscular route once a month Maxitrol 3.5mg/mL-10,000 unit/mL-0.1 % ophthalmic (eye ) drops,suspension 12/13/2018 instill 1 drop into affected eye(s) by ophthalmic route every 4 hours for 3 days phentermine 37.5 mg oral tablet 12/16/2018 TAKE 1 TABLET BY MOUTH EVERY DAY BEFORE BREAKFAST cetirizine 10 mg oral tablet 01/06/2019 TAKE 1 TABLE T BY MOUTH EVERY DAY Pristiq 50 mg oral tablet extended release 24 hr 01/10/2019 TAKE 1 TABLET (50 MG) BY ORAL ROUTE ONCE DAILY alprazolam 0.5 mg oral tablet 01/14/2019 TA KE 10/02 TO 1 TABLET BY MOUTH TWICE DAILY NEEDED FOR ANXIETY. MUST LAST 30 DAYS diclofenac sodium 75 mg oral tablet,delayed release (DR/EC) 02/11 TAKE 1 TABLET (75 MG) BY ORAL ROUTE 2 TIMES PER DAY FOR 30 DAYS Name Start Date Expiration Date SIG Comments Zithromax Z-Oscar 250 mg oral tablet 09/29/2015 10/04/2015 take 2 tablets (500 mg) by oral route once daily for 1 day then 1 tablet (250 mg) by oral route once daily for 4 days Medrol (Oscar) 4 mg oral tablets,dose pack 09/29/2015 6 take as directed for 5 days Medrol (Oscar) 4 mg oral tablets,dose pack 03/30/2017 7 take as directed for 5 days naproxen sodium 550 mg oral tablet 04/12/2017 take 1 tablet (550 mg) by oral route every 12 hours as needed Xifaxan 550 mg oral tablet 05/28/2018 06/11/2018 take 1 tablet (550 mg) by oral route 3 times per day for 14 days Golytely 236-22.74-6.74 -5.86 gram oral recon soln 06/05/2018 take as directed penicillin V potassium 500 mg oral tablet 06/11/2018 018 take 1 tablet (500 mg) by oral route 4 times per day for 10 days Xanax 0.5 mg oral tablet 07/16/2018 10/14/20182 to 1 twice daily as needed for anxiety must last 30 days penicillin V potassium 500 mg oral tablet 11/05/2018 019 take 1 tablet (500 mg) by oral route 4 times per day for 10 days Discontinued Name Start Date Discontinued Date SIG Comments Belviq 10 mg oral tablet 12/04/2016 take 1 tablet (10 mg) by oral route 2 times per day omeprazole 40 mg oral capsule,delayed release(DR/EC) penicillin V potassium 500 mg oral tablet 01/25/2016 12/05/19 17 take 1 tablet (500 mg) by oral route 3 times per day phentermine 37.5 mg oral tablet 03/30/2017 04/23/2017 take 1 tablet (37.5 mg) by oral route once daily before breakfast Problem List Description Status Onset Carpal tunnel syndrome Active 01/21/2017 Cubital tunnel syndrome on right Active 017 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 02/18/2017 Pure hypercholesterolemia Active 09/20/2017 GERD (gastroesophageal reflux disease) Active 0 06/14/2018 Gas bloat syndrome Active 06/14/2018 Abdominal pain Active 06/14/2018 Diarrhea Active 06/14/2018 Rectal bleeding Active 06/14/2018 Hemorrhoids Active 07/03/2018 Anal skin tag Active 11/26/2018 IBS (irritable bowel syndrome) Active 9 Skin tag of anus Active 11/26/2018 Vital Signs Date Time BP-Sys(mm[Hg] BP-Lluvia(mm[Hg]) HR(bpm) RR(rpm) Temp WT HT HC BMI BSA BMI Percentile O2 Sat(%) 02/25/2019 3:22:00 PM 126 mmHg 82 mmHg 86 bpm 18 rpm 98.2 F 270 lbs 76 in 32.8651 kg/m 2.5626 m 97 % 12/13/2018 11:04:00 AM 128 mmHg 82 mmHg 72 bpm 16 rpm 98.4 F 273 lbs 98 % 11/26/2018 2:49:00 PM 159 mmHg 77 mmHg 93 bpm 20 rpm 97.6 F 262 lbs 75 in 32.7474 kg/m 2.5077 m 11/05/2018 8:38:00 AM 150 mmHg 76 mmHg 84 bpm 16 rpm 98.4 F 265 lbs 75 in 33.12 kg/m2 2.52 m2 98 % 08/09/2018 2:31:00 PM 151 mmHg 91 mmHg 76 bpm 20 rpm 96.9 F 263.5 lbs 07/05/2018 10:34:00 AM 150 mmHg 70 mmHg 90 bpm 18 rpm 98.2 F 263 lbs 75 in 32.8724 kg/m 2.5125 m 98 % 07/02/2018 3:20:00 PM 160 mmHg 88 mmHg 109 bpm 20 rpm 97.6 F 268.5 lbs 75 i n 33.56 kg/m2 2.54 m2 06/28/2018 7:41:00 AM 267 lbs 06/11/2018 8:34:00 AM 130 mmHg 84 mmHg 106 bpm 18 rpm 98.2 F 276 lbs 75 in 34.50 kg/m2 2.57 m2 98 % 06/05/2018 10:28:00 AM 160 mmHg 90 mmHg 84 bpm 18 rpm 98.3 F 281 lbs 75 in 35.12 kg/m2 2.60 m2 98 % 05/27/2018 10:48:00 AM 142 mmHg 82 mmHg 78 bpm 18 rpm 98.3 F 282 lbs 75 in 35.2472 kg/m 2.6017 m 98 % 05/13/2018 7:55:00 AM 116 mmHg 74 mmHg 105 bpm 18 rpm 98.1 F 285 lbs 75 in 35.62 kg/m2 2.62 m2 98 % 04/26/2018 8:05:00 AM 279 lbs 03/19/2018 11:46:00 AM 128 mmHg 76 mmHg 80 bpm 18 rpm 98.4 F 298 lbs 75 in 37.25 kg/m2 2.67 m2 98 % 02/07/2018 3:40:00 PM 126 mmHg 70 mmHg 88 bpm 18 rpm 97.7 F 293 lbs 98 % 12/26/2017 2:11:00 PM 124 mmHg 88 mmHg 86 bpm 18 rpm 98.4 F 286 lbs 74 in 36.7199 kg/m 2.6025 m 98 % 12/11/2017 1:02:00 PM 138 mmHg 72 mmHg 88 bpm 18 rpm 98.2 F 288 lbs 74 in 36.98 kg/m2 2.61 m2 100 % 10/24/2017 1:44:00 PM 275 lbs 09/20/2017 3:01:00 PM 124 mmHg 82 mmHg 88 bpm 16 rpm 96.7 F 279 lbs 75 in 34.87 kg/m2 2.59 m2 96 % 08/09/2017 1:42:00 PM 132 mmHg 90 mmHg 86 bpm 16 rpm 98 F 276 lbs 74 in 35.4359 kg/m 2.5566 m 98 % 06/28/2017 7:59:00 AM 138 mmHg 76 mmHg 78 bpm 16 rpm 98.2 F 277 lbs 75 in 34.62 kg/m2 2.58 m2 99 % 04/12/2017 10:08:00 AM 134 mmHg 80 mmHg 88 bpm 16 rpm 96.7 F 273 lbs 75 in 34.1223 kg/m 2.5598 m 96 % 03/30/2017 10:19:00 AM 277 lbs 02/12/2017 2:01:00 PM 142 mmHg 84 mmHg 86 bpm 18 rpm 97 F 276 lbs 74 in 35.44 kg/m2 2.56 m2 100 % 01/29/2017 11:52:00 AM 276 lbs 01/10/2017 3:15:00 PM 122 mmHg 74 mmHg 84 bpm 18 rpm 97.4 F 280 lbs 74 in 35.95 kg/m2 2.58 m2 98 % 12/29/2016 11:49:00 AM 283 lbs 11/29/2016 11:11:00 AM 150 mmHg 80 mmHg 98 bpm 18 rpm 98.2 F 301 lbs 75 in 37.62 kg/m2 2.69 m2 100 % 08/10/2016 4:13:00 PM 145 mmHg 88 mmHg 72 bpm 16 rpm 98.2 F 296 lbs 75 in 36.9971 kg/m 2.6655 m 98 % 12/25/2014 1:17:00 PM 130 mmHg 85 mmHg 70 bpm 18 rpm 96.5 F 277 lbs 75 in 34.62 kg/m2 2.58 m2 98 % Social History Name Description Comments Uses seatbelts Alcohol Never Exercises regularly Current every day Tobacco Never smoker History of Procedures Date Ordered Description Order Status 11/29/2016 12:00 AM THERAPEUTIC PROPHYLACTIC/DX INJECTION CRAIG BQ/IM Reviewed 11/29/2016 12:00 AM Decadron 8mg Injection, [facility] Medicaid Rev iewed 11/29/2016 12:00 AM Depo-Medrol 80 Mg Injection, [facility] Medicai d Reviewed 02/12/2017 12:00 AM Decadron 8mg Injection, [facility] Medicaid Rev iewed 02/12/2017 12:00 AM Depo-Medrol 80 Mg Injection, [facility] Medicai d Reviewed 02/12/2017 12:00 AM THERAPEUTIC PROPHYLACTIC/DX INJECTION CRAIG BQ/IM Reviewed 08/09/2017 12:00 AM Toradol 60 Mg Injection Reviewed 08/09/2017 12:00 AM THER/PROPH/DIAG INJ SC/IM Reviewed 12/11/2017 12:00 AM THER/PROPH/DIAG INJ SC/IM Reviewed 12/11/2017 12:00 AM Decadron 8mg Injection Reviewed 12/11/2017 12:00 AM Depo-Medrol 80mg Injection Reviewed 12/11/2017 12:00 AM B12 1000mcg Injection, [facility] Medicaid Revi ewed 02/07/2018 12:00 AM THERAPEUTIC PROPHYLACTIC/DX INJECTION CRAIG BQ/IM Reviewed 02/07/2018 12:00 AM Decadron 8mg Injection, [facility] Medicaid Rev iewed 02/07/2018 12:00 AM Depo-Medrol 80 Mg Injection, [facility] Medicai d Reviewed 06/05/2018 12:00 AM THERAPEUTIC PROPHYLACTIC/DX INJECTION CRAIG BQ/IM Reviewed 06/05/2018 12:00 AM Decadron 8mg Injection, [facility] Medicaid Rev iewed 06/05/2018 12:00 AM Depo-Medrol 80 Mg Injection, [facility] Medicai d Reviewed 07/02/2018 12:00 AM COMPLETE CBC W/AUTO DIFF WBC Reviewed 07/02/2018 12:00 AM COMPREHEN METABOLIC PANEL Reviewed 07/11/2018 12:00 AM EXC TR-EXT B9+MARLIN 0.5 CM< Reviewed 02/25/2019 12:00 AM THERAPEUTIC PROPHYLACTIC/DX INJECTION CRAIG BQ/IM Reviewed 02/25/2019 12:00 AM Decadron 8mg Injection, [facility] Medicaid Rev iewed 02/25/2019 12:00 AM Depo-Medrol 80 Mg Injection, [facility] Medicai d Reviewed 02/25/2019 12:00 AM Rocephin 1 gram Injection, [facility] Medicaid Reviewed 12/25/2014 12:00 AM PMRV Drug Screen Collection Reviewed Results Summary Date and Description Results 07/15/2018 2:34 PM WBC 7.2 RBC 5.10 HGB 15.6 HC T 47.0 MCV 92 MCH 30.6 MCHC 33.2 RDW SD 41 RDW CV 12.0 MPV 8.7 PLT 281 NRBC# 0.00 NRBC% 0.0 %NEUT 47.7 %LYMP 46.0 %MONO 5.4 %EOS 0.6 %BASO 0.3 #NEUT 3.44 #LYMP 3.32 #MONO 0.39 #EOS 0.04 #BASO 0.02 MANUAL DIFF NOT IND GLUCOSE 94 SODIUM 138 POTASSIUM 3.7 CHLORIDE 103 CO2 26 BUN 16 CREATININE 1.1 SGOT/AST 19 SGPT/ALT 21 ALK PHOS 92 TOTAL PROTEIN 8.0 ALBUMIN 4.8 TOTAL BILI 0.4 CALCIUM 9.5 AGE 48 GFR NonAA 71 GFR AA 86 eGFR 71 eGFR AA* >60 History Of Immunizations Not available. History of Past Illness Name Date of Onset Comments indigestion Carpal tunnel syndrome 01/21/2017 Cubital tunnel syndrome on right 01/21/2017 Chronic midline low back pain with bilateral sciatica 2016 Pure hypercholesterolemia 09/20/2017 Irritable bowel syndrome (IBS) Anxiety Depression Leukemia Colon Cancer in situ-removed from sigmoid with scope-[facility] GERD (gastroesophageal reflux disease) 06/14/2018 Gas bloat syndrome 06/14/2018 Abdominal pain 06/14/2018 Diarrhea 06/14/2018 Rectal bleeding 06/14/2018 Hemorrhoids 07/03/2018 Anal skin tag 11/26/2018 IBS (irritable bowel syndrome) 11/26/2018 Skin tag of anus 11/26/2018 Annual physical exam Dec 25 2014 1:11PM General Medical Exam, Adult Dec 25 2014 1:18PM Benign skin lesion Stable Aug 10 2016 4:14PM Eustachian tube dysfunction, bilateral Nov 29 2016 11:12AM Mild Acute Purulent postnasal drainage Nov 29 2016 11:12AM Moderate Acute Sinus pressure Nov 29 2016 11:12AM Moderate Acute Right Carpal Tunnel Syndrome Jan 10 2017 3:1 5PM Cubital tunnel syndrome on right Jan 10 2017 3:15PM Lumbago with sciatica, right side Feb 12 2017 2:03PM Lumbago with sciatica, left side Feb 12 2017 2:03PM Other chronic pain Feb 12 2017 2:03PM Shoulder impingement syndrome, right Feb 12 2017 2:03PM Carpal tunnel syndrome of right wrist Feb 12 2017 2:03PM Cubital tunnel syndrome on right Feb 12 2017 2:03PM Medication management Feb 12 2017 2:03PM Lumbago with sciatica, left side Apr 12 2017 10:09AM Lumbago with sciatica, right side Apr 12 2017 10:09AM Acute pain of left shoulder Apr 12 2017 10:09AM Moderate Acute Right Wrist tendonitis Apr 12 2017 10:09AM Jammed finger (interphalangeal joint), right, initial encounter Apr 12 2017 10:09AM MARGARET (generalized anxiety disorder) Jun 28 2017 8:00AM Panic disorder [episodic paroxysmal anxiety] without a goraphobia Jun 28 2017 8:00AM Acute stress reaction Jun 28 2017 8:00AM Examination of, follow-up Aug 09 2017 1:43PM Contusion of left front wall of thorax, subsequent enc ounter Aug 09 2017 1:43PM Fall (on)(from) incline, subsequent encounter Aug 09 2017 1 :43PM Obesity Sep 20 2017 3:01PM Pure hypercholesterolemia Sep 20 2017 3:01PM Moderate Chronic Recurrent Environmental and seasonal allergies Dec 11 2017 1:02PM Pain in right shoulder Dec 11 2017 1:02PM Pain in left shoulder Dec 11 2017 1:02PM Rotator cuff tendinitis, unspecified laterality Dec 11 2017 1:02PM Moderate Chronic Shoulder impingement, left Worsening Dec 11 2017 1:02PM Moderate Chronic Shoulder impingement syndrome, right Worsening Dec 11 2017 1:02PM Toxic effect of venom of wasps, accidental (unintentio nal), initial encounter Dec 26 2017 2:11PM Medication management Dec 26 2017 2:11PM Dysfunction of both eustachian tubes Feb 07 2018 3:41PM Purulent postnasal drainage Feb 07 2018 3:41PM Sinus pressure Feb 07 2018 3:41PM Acute seasonal allergic rhinitis, unspecified trigger Feb 07 2018 3:41PM Moderate Acute Labyrinthitis Feb 07 2018 3:41PM Obstructive sleep apnea (adult) (pediatric) Mar 19 2018 11:4 7AM Dependence on other enabling machines and devices Mar 19 201 8 11:47AM Lumbago with sciatica, right side Mar 19 2018 11:47AM Lumbago with sciatica, left side Mar 19 2018 11:47AM Other chronic pain Mar 19 2018 11:47AM Other obesity due to excess calories May 13 2018 7:56AM Body mass index (BMI) 35.0-35.9, adult May 13 2018 7:56AM Dietary Counseling May 13 2018 7:56AM Exercise Counseling May 13 2018 7:56AM Hypoglycemia May 13 2018 7:56AM Weight loss counseling, encounter for May 13 2018 7:56AM Irritable bowel syndrome with diarrhea May 27 2018 10:49AM Lumbago with sciatica, right side May 27 2018 10:49AM Lumbago with sciatica, left side May 27 2018 10:49AM Other chronic pain May 27 2018 10:49AM Medication management May 27 2018 10:49AM Abdominal pain Jun 05 2018 4:21PM GERD (gastroesophageal reflux disease) Jun 05 2018 4:21PM Rectal bleeding Jun 05 2018 4:21PM Dysfunction of both eustachian tubes Jun 05 2018 10:29AM Purulent postnasal drainage Jun 05 2018 10:29AM Upper respiratory tract infection, unspecified type Sep 2 018 10:29AM Stomach flu Jun 05 2018 10:29AM Tooth ache Jun 11 2018 8:35AM Gas bloat syndrome Jun 05 2018 4:21PM Diarrhea Jun 05 2018 4:21PM Hemorrhoids Jul 02 2018 3:22PM Preop examination Jul 02 2018 3:22PM Seborrheic keratosis, inflamed Jul 05 2018 10:35AM Seborrheic keratosis, inflamed Jul 11 2018 3:40PM Sinus pressure Nov 05 2018 3:25PM Upper respiratory tract infection, unspecified type Nov 05 2 019 3:25PM Purulent postnasal drainage Nov 05 2018 3:25PM Low back pain Nov 05 2018 3:25PM Other chronic pain Nov 05 2018 3:25PM Anal skin tag Nov 26 2018 2:52PM IBS (irritable bowel syndrome) Nov 26 2018 2:52PM Skin tag of anus Nov 26 2018 2:53PM Vitamin B 12 deficiency Nov 26 2018 4:22PM Corneal irritation of left eye Dec 13 2018 11:05AM Chest congestion Feb 25 2019 3:26PM Upper respiratory tract infection, unspecified type February 25 2 019 3:26PM Purulent postnasal drainage Feb 25 2019 3:26PM Payers Insurance Name Company Name Plan Name Plan Number Policy Number [place] Group Number Start Date [facility] [id number] N/A [facility] - [facility] - Community Plan of [facility] ealtare [facility] Comm [id number] N/A [facility] on Longterm [place] PMRV PHYS/DS PMRV PHYSDS N/A [employer] - C - [place] State Plan [employer] - [facility] State Plan [id number] N/A [employer] [place] [employer] [place] [id number] N/A History of Encounters Visit Date Visit Type Provider 02/25/2019 Office visit SUJIT ANDERSON PA 12/13/2018 Office visit SUJIT ANDERSON PA 11/26/2018 Office visit Adam Dykes DO 11/05/2018 Office visit SUJIT ANDERSON PA 08/09/2018 Surgery Adam Bouman DO 07/25/2018 Surgery Adam Bouman DO 07/11/2018 Office visit SUJIT ANDERSON PA 07/05/2018 Office visit SUJIT ANDERSON PA 07/02/2018 Office visit Adam Dayuman DO 06/17/2018 Surgery Adam Bouman DO 06/11/2018 Office visit SUJIT ANDERSON PA 06/05/2018 Office visit Adam Dayuman DO 06/05/2018 Office visit SUJIT ANDERSON PA 05/27/2018 Office visit SUJIT QUINTANILLA 05/13/2018 Office visit SUJIT QUINTANILLA 03/19/2018 Office visit SUJIT QUINTANILLA 02/07/2018 Office visit SUJIT QUINTANILLA 12/26/2017 Office visit SUJIT QUINTANILLA 12/11/2017 Office visit SUJIT QUINTANILLA 09/20/2017 Office visit SUJIT QUINTANILLA 08/09/2017 Office visit SUJIT QUINTANILLA 06/28/2017 Office visit SUJIT QUINTANILLA 04/12/2017 Office visit SUJIT QUINTANILLA 02/12/2017 Office visit SUJIT QUINTANILLA 01/10/2017 Office visit SUJIT ANDERSON PA 11/29/2016 Office visit SUJIT ANDERSON PA 08/10/2016 Office visit SUJIT ANDERSON PA 12/25/2014 Office visit SUJIT QUINTANILLA
--- OUTSIDE RECORDS SUMMARY | 2019-12-09 12:44 | XMS REPORT | CCD ---
Author JOSSY Vogel Organization Unknown Address [address] [facility] [address] [place] [address] Care Team Providers Care Appellate Law Clerk Name Role Phone MEHUL ER, WAYLON DO Attphys [place] ER, WAYLON DO Prisurg Allergies Allergy Code Allergy Type Reaction Status ZOLOFT 15115 Drug allergy Active Active Medications Unknown or Not Available. Problems Unknown or Not Available. Procedures Procedure Code Procedure Type Date LUMBAR SPINE; 2VIEWS OR [address] 08/07/2017 RIBS, UNILAT.; PA CHEST, MINIMUM [address] 08/07/2017 HUMERUS, [address] HEAD W/O CONTRAST 287055085 SNOM[address] CT 08/07 CT CERVICAL W/O CONTRAST 830584620 SNOMED CT 1 10/07/2016 Results Unknown or Not Available. Encounters Encounter Diagnosis Diagnosis Code Start Date Contusion of left shoulder, initial encounter [id number] 08/07/2017 Function Status Unknown or Not Available. History of Immunizations Immunization Code Date pneumococcal polysaccharide PPV23 33 04/19/2015 Influenza, seasonal, injectable, preservative free 140 08/17/2015 Influenza, seasonal, injectable 141 Plan of Treatment Unknown or Not Available. Social History Smoking Status Code Start Date End Date Never smoker 792094647 Vital Signs Unknown or Not Available. Function Status Unknown or Not Available. Goals Unknown or Not Available. ASSESSMENTS Unknown or Not Available. Health Concerns Section Unknown or Not Available.
--- OUTSIDE RECORDS SUMMARY | 2019-12-09 12:44 | XMS REPORT ---
Discharge Summary 2.1 Created on: JOSSY BACK : 1970 Sex: Male Author JOSSY Vogel Organization Unknown Address [address] [facility] [address] [place], [place] [id number] Care Team Providers Care Inside Sales Consultant Name Role Phone ZEE SCHWARTZ MD ER Attending JUSTIN QUINTANILLA [facility] Functional Status No Data Found Immunization Immunization Date Status Additional Notes Cod e Code System pneumococcal polysaccharide PPV23 04/19/2015 Complet ed 33 CVX meningococcal MCV4P 09/17/2017 Completed 114 CVX Influenza, seasonal, injectable, preservative free Completed 140 CVX Influenza, seasonal, injectable 08/05/2014 Completed 141 CVX Mental Status No Data Found Results RIBS, UNILATERAL 2 VIEWS - Completed: 12:14 LOINC: EXAMINATION:RIBS, UNILATERAL 2 VIEWSREAS ON FOR EXAM:InjuryCOMPARISON:There is a previous study dated August 07, 2017. FINDINGS:The cardiac silhouette, mediastinum and pulmonary vascularity are normal. No consolidating infiltrate, pleural effusion or pneumothorax is seen. There is a stimulator overlying the mid thoracic spine. No displaced left-sided rib fracture is seen. No healing callus formation is evident. No lytic, sclerotic or expansile bone lesion is seen.IMPRESSION:1.No acute cardiopulmonary disease is seen. 2.No displaced left- sided rib fracture is evident. Reviewed and Electronically Signed by: Nikko Isidro MD DABRSigned Date/Time: 08/25/2017 3:25 PMJob ID#: [id number] Social History Type Status Start Date End Date Code Co de System Smoking History Never smoker (Never Smoked) 061309214 SNOMED-CT Smoking History Unknown if ever smoked 328628349 SNOMED-CT Vital Signs No Data Found Assessment No Data Found Hospital Discharge Instructions Should you have any questions prior to discharge, please contact a member of your healthcare team. If you have left the hospital and have any questions, please contact your primary care physician. Reason For Referral No Data Found Hospital Course You were admitted to [facility] on 08/21/2017 10:58 with a principal diagnosis of Sprain of ribs, initial encounter You were discharged from [facility] on 08/21/2017 12:53 Medications No Data Found Procedures No Data Found Implants No Data Found Problems No Data Found Allergies Allergy Substance Reaction Severity Start Date Concern Status Code Code System ZOLOFT Active 42037 Rx Norm Plan of Treatment No Data Found Encounters No Data Found Goals No Data Found Discharge Medications No Data Found Discharge Diagnosis Discharge Diagnosis Diagnosis Code Start Date Sprain of ribs, initial encounter [id number] 08/21/2017 Health Concerns Section No Data Found
--- OUTSIDE RECORDS SUMMARY | 2019-12-09 12:44 | XMS REPORT | CCD ---
Author JOSSY Gordon Organization Unknown Address [address] [facility] [address] [place], [place] [id number] Care Team Providers Care Office Manager Receptionist Name Role Phone PETERS, [place] DO Attphys [place], [place] DO Prisurg Vital Signs Unknown or Not Available. Allergies Allergy Code Allergy Type Reaction Status ZOLOFT 75528 Drug allergy Active Procedures Unknown or Not Available. History of Immunizations Unknown or Not Available. Problems Unknown or Not Available. Results Unknown or Not Available. Active Medications Unknown or Not Available. Medications Administered During Visit Unknown or Not Available. Encounters Encounter Diagnosis Diagnosis Code Start Date Tendon strain 387218176 12/03/2015 Social History Smoking Status Code Start Date End Date Never smoker [id number] Patient Decision Aids Unknown or Not Available. Discharge Instructions You were admitted to [facility] on 12/03/2015 22:22 with a principal diagnosis of Strain of muscle and tendon of front wall of thorax, initial encounter You were discharged from [facility] on 12/03/2015 23:57 Should you have any questions prior to discharge, please contact a member of your healthcare team. If you have left the hospital and have any questions, please contact your primary care physician. Chief Complaint and Reason For Visit Chief Complaint Date of Onset BACK PAIN Function Status Unknown or Not Available. Plan of Care Unknown or Not Available. Referral/Transition of Care Unknown or Not Available.
--- OUTSIDE RECORDS SUMMARY | 2019-12-09 12:45 | XMS REPORT ---
Author Author Rhonda ANDERSON Organization [facility] Address [address] [place], [place] [address] Care Team Providers Care Communications And Signals Supervisor Name Role Phone SUJIT ANDERSON PCP SUJIT [...] by oral route once daily at bedtime cetirizine 10 mg oral tablet 07/15/2018 TAKE 1 TABLE T BY MOUTH EVERY DAY hydrocodone-ibuprofen 7.5-200 mg oral tablet 08/12/2018 take 1 tablet by oral route every 6 hours as needed for pain not to exceed 5 tablets in 24hrs diclofenac sodium 75 mg oral tablet,delayed release (DR/EC) 201802/03/2019 take 1 tablet (75 mg) by oral route 2 times per day for 30 days methylprednisolone 4 mg oral tablets,dose pack 11/05/2018 TAKE DIRECTED cyclobenzaprine 10 mg oral tablet 11/05/2018 take 1 tablet (10 mg) by oral route 3 times per day Pristiq 50 mg oral tablet extended release 24 hr 11/05/2018 TAKE 1 TABLET (50 MG) BY ORAL ROUTE ONCE DAILY cyanocobalamin (vitamin B-12) 1,000 mcg/mL injection solution 11/05/2018 inject 1 milliliter (1,000 mcg) by intramuscular route once a month Maxitrol 3.5mg/mL-10,000 unit/mL-0.1 % ophthalmic (eye ) drops,suspension 12/13/2018 instill 1 drop into affected eye(s) by ophthalmic route every 4 hours for 3 days phentermine 37.5 mg oral tablet 12/16/2018 TAKE 1 TABLET BY MOUTH EVERY DAY BEFORE BREAKFAST Name Start Date Expiration Date SIG Comments [...] days Xanax 0.5 mg oral tablet 07/16/2018 10/14/201810/02 to 1 twice daily as needed for anxiety must last 30 days phentermine 37.5 mg oral tablet 09/13/2018 10/13/2018 take 1 tablet (37.5 mg) by oral route once daily before breakfast for 30 days penicillin V potassium 500 mg [...] 06/14/2018 Gas bloat syndrome Active 06/14/2018 Abdominal Pain Active 06/14/2018 Diarrhea Active 06/14/2018 Rectal bleeding Active 06/14/2018 Hemorrhoids Active 07/03/2018 Anal skin tag Active 11/26/2018 IBS (irritable bowel syndrome) Active 9 Skin tag of anus Active 11/26/2018 Vital Signs Date Time BP-Sys(mm[Hg] BP-Lluvia(mm[Hg]) HR(bpm) RR(rpm) Temp WT HT HC BMI BSA BMI Percentile O2 Sat(%) 12/13/2018 11:04:00 AM 128 mmHg 82 mmHg [...] rpm 98.2 F 276 lbs 75 in 34.4973 kg/m 2.5739 m 98 % 06/05/2018 10:28:00 AM 160 mmHg [...] Reviewed 11/29/2016 12:00 AM Decadron 8mg Injection, [facility] Medicaid Rev iewed 11/29/2016 12:00 AM Depo-Medrol 80 Mg Injection, [facility] Medicai d Reviewed 02/12/2017 12:00 AM Decadron 8mg Injection, [facility] Medicaid Rev iewed 02/12/2017 12:00 AM Depo-Medrol 80 Mg Injection, [facility] Medicai d Reviewed 02/12/2017 12:00 AM THERAPEUTIC PROPHYLACTIC/DX INJECTION CRAIG BQ/IM Reviewed 08/09/2017 12:00 AM Toradol 60 Mg Injection Reviewed 08/09/2017 12:00 AM THER/PROPH/DIAG INJ SC/IM Reviewed 12/11/2017 12:00 AM THER/PROPH/DIAG INJ SC/IM Reviewed 12/11/2017 12:00 AM Decadron 8mg Injection Reviewed 12/11/2017 12:00 AM Depo-Medrol 80mg Injection Reviewed 12/11/2017 12:00 AM B12 1000mcg Injection, [facility] Medicaid Revi ewed 02/07/2018 12:00 AM THERAPEUTIC PROPHYLACTIC/DX INJECTION CRAIG BQ/IM Reviewed 02/07/2018 12:00 AM Decadron 8mg Injection, [facility] Medicaid Rev iewed 02/07/2018 12:00 AM Depo-Medrol 80 Mg Injection, [facility] Medicai d Reviewed 06/05/2018 12:00 AM THERAPEUTIC PROPHYLACTIC/DX INJECTION CRAIG BQ/IM Reviewed 06/05/2018 12:00 AM Decadron 8mg Injection, [facility] Medicaid Rev iewed 06/05/2018 12:00 AM Depo-Medrol 80 Mg Injection, [facility] Medicai d Reviewed 07/02/2018 12:00 AM COMPLETE CBC W/AUTO DIFF WBC Reviewed 07/02/2018 12:00 AM COMPREHEN METABOLIC PANEL Reviewed 07/11/2018 12:00 AM EXC TR-EXT B9+MARLIN 0.5 CM< Reviewed 12/25/2014 12:00 AM PMRV Drug Screen [...] Colon Cancer in situ-removed from sigmoid with scope-[facility] GERD (gastroesophageal reflux disease) 06/14/2018 Gas bloat syndrome 06/14/2018 Abdominal Pain 06/14/2018 Diarrhea 06/14/2018 Rectal bleeding 06/14/2018 Hemorrhoids [...] respiratory tract infection, unspecified type Nov 05 019 3:25PM Purulent postnasal drainage Nov 05 2018 3:25PM Low back pain Nov 05 2018 3:25PM Other chronic pain Nov 05 2018 3:25PM Anal skin tag Nov 26 2018 2:52PM IBS (irritable bowel syndrome) Nov 26 2018 2:52PM Skin tag of anus Nov 26 2018 2:53PM Vitamin B 12 deficiency Nov 26 2018 4:22PM Payers Insurance Name Company Name Plan Name Plan Number Policy Number Nash cy Group Number Start Date [facility] Community Plan [facility] e Comm Plan of [id number] N/A [facility] - Community Plan [facility] [id number] N/A [facility] on Long-Term [place] PMRV PHYS/DS PMRV PHYSDS N/A [employer] - [facility] - [place] State Plan [employer] - [facility] State Plan [id number] N/A [employer] [place] State Plan [employer] [place] State Plan [id number] N/A History of Encounters Visit Date Visit Type Provider 12/13/2018 Office visit SUJIT QUINTANILLA 11/26/2018 Office visit Adam Dykes DO 11/05/2018 Office visit SUJIT QUINTANILLA 08/09/2018 Surgery Adam Dykes DO 07/25/2018 Surgery Adam Dykes DO 07/11/2018 Office visit SUJIT QUINTANILLA 07/05/2018 Office visit SUJIT QUINTANILLA 07/02/2018 Office visit Adam Dykes DO 06/17/2018 Surgery Adam Dykes DO 06/11/2018 Office visit SUJIT QUINTANILLA 06/05/2018 Office visit Adam Dykes DO 06/05/2018 Office visit SUJIT QUINTANILLA 05/27/2018 Office visit SUJIT QUINTANILLA 05/13/2018 Office visit SUJIT ANDERSON PA 03/19/2018 Office visit SUJIT ANDERSON PA 02/07/2018 Office visit SUJIT ANDERSON PA 12/26/2017 Office visit SUJIT ANDERSON PA 12/11/2017 Office visit SUJIT ANDERSON PA 09/20/2017 Office visit SUJIT ANDERSON PA 08/09/2017 Office visit SUJIT ANDERSON PA 06/28/2017 Office visit SUJIT ANDERSON PA 04/12/2017 Office visit SUJIT ANDERSON PA 02/12/2017 Office visit SUJIT ANDERSON PA 01/10/2017 Office visit SUJIT ANDERSON PA 11/29/2016 Office visit SUJIT ANDERSON PA 08/10/2016 Office visit SUJIT ANDERSON PA 12/25/2014 Office visit SUJIT ANDERSON PA
--- OUTSIDE RECORDS SUMMARY | 2019-12-09 12:45 | XMS REPORT ---
Author Author Rhonda ANDERSON Organization [facility] Address [address] [place], [place] [address] Care Team Providers Care Optician Name Role Phone SUJIT ANDERSON PCP SUJIT [...] 11/29/2016 12:00 AM Decadron 8mg Injection, [facility] Medicaid Rev iewed 11/29/2016 12:00 AM Depo-Medrol 80 Mg Injection, [facility] Medicai d Reviewed 02/12/2017 12:00 AM Decadron 8mg Injection, [facility] Medicaid Rev iewed 02/12/2017 12:00 AM Depo-Medrol 80 Mg Injection, [facility] Medicai d Reviewed 02/12/2017 12:00 AM THERAPEUTIC PROPHYLACTIC/DX INJECTION CRAIG BQ/IM Reviewed 08/09/2017 12:00 AM Toradol 60 Mg Injection Reviewed 08/09/2017 12:00 AM THER/PROPH/DIAG INJ SC/IM Reviewed 12/11/2017 12:00 AM THER/PROPH/DIAG INJ SC/IM Reviewed 12/11/2017 12:00 AM Decadron 8mg Injection Reviewed 12/11/2017 12:00 AM Depo-Medrol 80mg Injection Reviewed 12/11/2017 12:00 AM B12 1000mcg Injection, [facility] Medicaid Revi ewed 02/07/2018 12:00 AM THERAPEUTIC PROPHYLACTIC/DX INJECTION CRAIG BQ/IM Reviewed 02/07/2018 12:00 AM Decadron 8mg Injection, [facility] Medicaid Rev iewed 02/07/2018 12:00 AM Depo-Medrol 80 Mg Injection, [facility] Medicai d Reviewed 06/05/2018 12:00 AM THERAPEUTIC PROPHYLACTIC/DX INJECTION CRAIG BQ/IM Reviewed 06/05/2018 12:00 AM Decadron 8mg Injection, [facility] Medicaid Rev iewed 06/05/2018 12:00 AM [...] Colon Cancer in situ-removed from sigmoid with scope-[facility] GERD (gastroesophageal reflux disease) 06/14/2018 Gas [...] Upper respiratory tract infection, unspecified type Sep 5 2 018 10:29AM Stomach flu Jun 05 [...] of left eye Dec 13 2018 11:05AM Payers Insurance Name Company Name Plan Name Plan Number Policy Number Nash cy Group Number Start Date [facility] Plan of [id number] N/A [facility] - Community Plan [facility] [id number] N/A [facility] on Cust[employer]ial [place] PMRV PHYS/DS PMRV PHYSDS N/A [employer] - [facility] [place] [employer] [place] [facility] [place] [id number] [place] [employer] [place] [employer] [place] [id number] N/A History of Encounters Visit Date Visit [...] visit SUJIT QUINTANILLA 02/07/2018 Office visit SUJIT ANDERSON PA 12/26/2017 [...]
--- OUTSIDE RECORDS SUMMARY | 2019-12-09 12:45 | XMS REPORT ---
Author Author Rhonda ANDERSON Organization [facility] Address [address] [place], [place] [address] Care Team Providers Care Grounds Foreman Name Role Phone SUJIT ANDERSON PCP SUJIT [...] Reviewed 11/29/2016 12:00 AM Decadron 8mg Injection, [facility] Medicaid Rev iewed 11/29/2016 12:00 AM Depo-Medrol 80 Mg Injection, [facility] Medicai d Reviewed 02/12/2017 12:00 AM Decadron 8mg Injection, [facility] Medicaid Rev iewed 02/12/2017 12:00 AM Depo-Medrol 80 Mg Injection, [facility] Medicai d Reviewed 02/12/2017 12:00 AM THERAPEUTIC PROPHYLACTIC/DX INJECTION CRAIG BQ/IM Reviewed 08/09/2017 12:00 AM Toradol 60 Mg Injection Reviewed 08/09/2017 12:00 AM THER/PROPH/DIAG INJ SC/IM Reviewed 12/11/2017 12:00 AM THER/PROPH/DIAG INJ SC/IM Reviewed 12/11/2017 12:00 AM Decadron 8mg Injection Reviewed 12/11/2017 12:00 AM Depo-Medrol 80mg Injection Reviewed 12/11/2017 12:00 AM B12 1000mcg Injection, [facility] Medicaid Revi ewed 02/07/2018 12:00 AM THERAPEUTIC PROPHYLACTIC/DX INJECTION CRAIG BQ/IM Reviewed 02/07/2018 12:00 AM Decadron 8mg Injection, [facility] Medicaid Rev iewed 02/07/2018 12:00 AM Depo-Medrol 80 Mg Injection, [facility] Medicai d Reviewed 06/05/2018 12:00 AM THERAPEUTIC PROPHYLACTIC/DX INJECTION CRAIG BQ/IM Reviewed 06/05/2018 12:00 AM Decadron 8mg Injection, [facility] Medicaid Rev iewed 06/05/2018 12:00 AM Depo-Medrol [...] Colon Cancer in situ-removed from sigmoid with scope-[facility] GERD (gastroesophageal reflux disease) 06/14/2018 Gas [...] Number Nash cy Group Number Start Date [facility] Community Plan [facility] e Comm Plan of [id number] N/A [facility] - Community Plan [facility] [id number] N/A [facility] on Long Term [place] PMRV PHYS/DS PMRV PHYSDS N/A [employer] - [facility] - [place] State Plan [employer] - [facility] State Plan [id number] N/A [employer] [place] [employer] [place] [id number] N/A History of Encounters Visit Date Visit [...]
--- OUTSIDE RECORDS SUMMARY | 2019-12-09 12:46 | XMS REPORT ---
Author Rhonda Piña Organization [facility] Address [address] [place], [place] [address] Care Team Providers Care Long Lines Operator Name Role Phone Adam Dykes PCP SUJIT ANDERSON PreferredProvider Allergies and Adverse [...] not to exceed 5 tablets in 24hrs phentermine 37.5 mg oral tablet 10/21/2018 TAKE 1 TABLET BY MOUTH EVERY DAY BEFORE BREAKFAST diclofenac sodium 75 mg oral tablet,delayed release [...] mcg) by intramuscular route once a month Name Start Date Expiration Date SIG Comments [...] HC BMI BSA BMI Percentile O2 Sat(%) 11/26/2018 2:49:00 PM 159 mmHg 77 mmHg [...] Reviewed 11/29/2016 12:00 AM Decadron 8mg Injection, [facility] Medicaid Rev iewed 11/29/2016 12:00 AM Depo-Medrol 80 Mg Injection, [facility] Medicai d Reviewed 02/12/2017 12:00 AM Decadron 8mg Injection, [facility] Medicaid Rev iewed 02/12/2017 12:00 AM Depo-Medrol 80 Mg Injection, [facility] Medicai d Reviewed 02/12/2017 12:00 AM THERAPEUTIC PROPHYLACTIC/DX INJECTION CRAIG BQ/IM Reviewed 08/09/2017 12:00 AM Toradol 60 Mg Injection Reviewed 08/09/2017 12:00 AM THER/PROPH/DIAG INJ SC/IM Reviewed 12/11/2017 12:00 AM THER/PROPH/DIAG INJ SC/IM Reviewed 12/11/2017 12:00 AM Decadron 8mg Injection Reviewed 12/11/2017 12:00 AM Depo-Medrol 80mg Injection Reviewed 12/11/2017 12:00 AM B12 1000mcg Injection, [facility] Medicaid Revi ewed 02/07/2018 12:00 AM THERAPEUTIC PROPHYLACTIC/DX INJECTION CRAIG BQ/IM Reviewed 02/07/2018 12:00 AM Decadron 8mg Injection, [facility] Medicaid Rev iewed 02/07/2018 12:00 AM Depo-Medrol 80 Mg Injection, [facility] Medicai d Reviewed 06/05/2018 12:00 AM THERAPEUTIC PROPHYLACTIC/DX INJECTION CRAIG BQ/IM Reviewed 06/05/2018 12:00 AM Decadron 8mg Injection, [facility] Medicaid Rev iewed 06/05/2018 12:00 AM Depo-Medrol 80 Mg Injection, [facility] Medicai d Reviewed 07/02/2018 12:00 AM COMPLETE [...] Colon Cancer in situ-removed from sigmoid with scope-[facility] GERD (gastroesophageal reflux disease) 06/14/2018 Gas bloat [...] inflamed Jul 11 2018 3:40PM Sinus pressure Feb 5 2019 3:25PM Upper respiratory tract infection, unspecified type Nov 05 2 019 3:25PM Purulent postnasal drainage Nov 05 2018 3:25PM Low back pain Nov 05 2018 3:25PM Other chronic pain Nov 05 2018 3:25PM Anal skin tag Nov 26 2018 2:52PM IBS (irritable bowel syndrome) Nov 26 2018 2:52PM Skin tag of anus Nov 26 2018 2:53PM Payers Insurance Name Company Name Plan Name Plan Number Policy Number Nash cy Group Number Start Date [facility] Comm Plan of [id number] N/A [facility] - [facility] - Community Plan of [facility] ealthCare [facility] Comm [id number] N/A [facility] on [facility] [place] PMRV PHYS/DS PMRV PHYSDS N/A [employer] - [facility] - [place] State [place] [employer] - [facility] [place] State [place] [id number] N/A [employer] [place] [employer] [place] [id number] N/A History of Encounters Visit Date Visit Type Provider 11/26/2018 Office visit Adam Dykes DO 11/05/2018 Office visit SUJIT QUINTANILLA 08/09/2018 Surgery Adam Jania DO 07/25/2018 Surgery Adam Dykes DO 07/11/2018 Office visit SUJIT QUINTANILLA 07/05/2018 Office visit SUJIT QUINTANILLA 07/02/2018 Office visit Adam Dykes DO 06/17/2018 Surgery Adam Jania DO 06/11/2018 Office visit SUJIT QUINTANILLA 06/05/2018 [...] visit SUJIT QUINTANILLA 04/12/2017 Office visit SUJIT ANDERSON PA 02/12/2017 Office visit SUJIT ANDERSON PA 01/10/2017 Office visit SUJIT ANDERSON PA 11/29/2016 Office visit SUJIT ANDERSON PA 08/10/2016 Office visit SUJIT ANDERSON PA 12/25/2014 Office visit SUJIT ANDERSON PA
--- OUTSIDE RECORDS SUMMARY | 2019-12-09 12:46 | XMS REPORT ---
Author Rhonda Piña Organization [facility] Address [address] [place], [place] [address] Care Team Providers Care Head Of Sales Name Role Phone Adam Dykes PCP SUJIT [...] route once daily for 4 days Medrol (Oscra) 4 mg oral tablets,dose pack 09/29/2015 6 [...] Reviewed 11/29/2016 12:00 AM Decadron 8mg Injection, [facility] Medicaid Rev iewed 11/29/2016 12:00 AM Depo-Medrol 80 Mg Injection, [facility] Medicai d Reviewed 02/12/2017 12:00 AM Decadron 8mg Injection, [facility] Medicaid Rev iewed 02/12/2017 12:00 AM Depo-Medrol 80 Mg Injection, [facility] Medicai d Reviewed 02/12/2017 12:00 AM THERAPEUTIC PROPHYLACTIC/DX INJECTION CRAIG BQ/IM Reviewed 08/09/2017 12:00 AM Toradol 60 Mg Injection Reviewed 08/09/2017 12:00 AM THER/PROPH/DIAG INJ SC/IM Reviewed 12/11/2017 12:00 AM THER/PROPH/DIAG INJ SC/IM Reviewed 12/11/2017 12:00 AM Decadron 8mg Injection Reviewed 12/11/2017 12:00 AM Depo-Medrol 80mg Injection Reviewed 12/11/2017 12:00 AM B12 1000mcg Injection, [facility] Medicaid Revi ewed 02/07/2018 12:00 AM THERAPEUTIC PROPHYLACTIC/DX INJECTION CRAIG BQ/IM Reviewed 02/07/2018 12:00 AM Decadron 8mg Injection, [facility] Medicaid Rev iewed 02/07/2018 12:00 AM Depo-Medrol 80 Mg Injection, [facility] Medicai d Reviewed 06/05/2018 12:00 AM THERAPEUTIC PROPHYLACTIC/DX INJECTION CRAIG BQ/IM Reviewed 06/05/2018 12:00 AM Decadron 8mg Injection, [facility] Medicaid Rev iewed 06/05/2018 12:00 AM Depo-Medrol 80 Mg Injection, [facility] Medicai d Reviewed 07/02/2018 12:00 AM COMPLETE [...] Colon Cancer in situ-removed from sigmoid with scope-[facility] GERD (gastroesophageal reflux disease) 06/14/2018 [...] cy Group Number Start Date [facility] Comm Plan of [id number] N/A [facility] - [facility] - Community Plan of [facility] ealthCare [facility] Comm [id number] N/A [facility] on [facility] [place] PMRV PHYS/DS PMRV PHYSDS N/A [employer] - [facility] - [place] State [place] [employer] - [facility] [place] [id number] N/[place] [employer] [place] [employer] [place] [id number] N/A History of Encounters Visit Date Visit Type Provider 11/26/2018 Office visit Adam Dykes DO 11/05/2018 Office visit SUJIT QUINTANILLA 08/09/2018 Surgery Adam Shaysada DO 07/25/2018 Surgery Adam Jania DO 07/11/2018 Office visit SUJIT QUINTANILLA 07/05/2018 [...] visit SUJIT QUINTANILLA 06/28/2017 Office visit SUJIT ANDERSON PA 04/12/2017 Office visit SUJIT ANDERSON PA 02/12/2017 Office visit SUJIT ANDERSON PA 01/10/2017 Office visit SUJIT ANDERSON PA 11/29/2016 Office visit SUJIT ANDERSON PA 08/10/2016 Office visit SUJIT ANDERSON PA 12/25/2014 Office visit SUJIT QUINTANILLA
--- OUTSIDE RECORDS SUMMARY | 2019-12-09 12:46 | XMS REPORT ---
Author Rhonda Piña Organization [facility] Address [address] [place], [place] [address] Care Team Providers Care Laborer Aquatic Life Name Role Phone Adam Dykes PCP SUJIT [...] 11/26/2018 IBS (irritable bowel syndrome) Active 9 Vital Signs Date Time BP-Sys(mm[Hg] BP-Lluvia(mm[Hg]) HR(bpm) [...] Reviewed 11/29/2016 12:00 AM Decadron 8mg Injection, [facility] Medicaid Rev iewed 11/29/2016 12:00 AM Depo-Medrol 80 Mg Injection, [facility] Medicai d Reviewed 02/12/2017 12:00 AM Decadron 8mg Injection, [facility] Medicaid Rev iewed 02/12/2017 12:00 AM Depo-Medrol 80 Mg Injection, [facility] Medicai d Reviewed 02/12/2017 12:00 AM THERAPEUTIC PROPHYLACTIC/DX INJECTION CRAIG BQ/IM Reviewed 08/09/2017 12:00 AM Toradol 60 Mg Injection Reviewed 08/09/2017 12:00 AM THER/PROPH/DIAG INJ SC/IM Reviewed 12/11/2017 12:00 AM THER/PROPH/DIAG INJ SC/IM Reviewed 12/11/2017 12:00 AM Decadron 8mg Injection Reviewed 12/11/2017 12:00 AM Depo-Medrol 80mg Injection Reviewed 12/11/2017 12:00 AM B12 1000mcg Injection, [facility] Medicaid Revi ewed 02/07/2018 12:00 AM THERAPEUTIC PROPHYLACTIC/DX INJECTION CRAIG BQ/IM Reviewed 02/07/2018 12:00 AM Decadron 8mg Injection, [facility] Medicaid Rev iewed 02/07/2018 12:00 AM Depo-Medrol 80 Mg Injection, [facility] Medicai d Reviewed 06/05/2018 12:00 AM THERAPEUTIC PROPHYLACTIC/DX INJECTION CRAIG BQ/IM Reviewed 06/05/2018 12:00 AM Decadron 8mg Injection, [facility] Medicaid Rev iewed 06/05/2018 12:00 AM Depo-Medrol [...] Colon Cancer in situ-removed from sigmoid with scope-[facility] GERD (gastroesophageal reflux disease) 06/14/2018 Gas bloat syndrome 06/14/2018 Abdominal Pain 06/14/2018 Diarrhea 06/14/2018 Rectal bleeding 06/14/2018 Hemorrhoids 07/03/2018 Anal skin tag 11/26/2018 IBS (irritable bowel syndrome) 11/26/2018 Annual physical exam Dec 25 2014 [...] 3:25PM Upper respiratory tract infection, unspecified type Feb 2 019 3:25PM Purulent postnasal drainage Nov 05 2018 3:25PM Low back pain Nov 05 2018 3:25PM Other chronic pain Nov 05 2018 3:25PM Anal skin tag Nov 26 2018 2:52PM IBS (irritable bowel syndrome) Nov 26 2018 2:52PM Payers Insurance Name Company Name Plan Name Plan Number Policy Number Nash cy Group Number Start Date [facility] Comm Plan of [id number] N/A [facility]Care [facility] Comm [id number] N/A [facility] on [facility] [place] PMRV PHYS/DS PMRV PHYSDS N/A [employer] - [facility] - [place] State Plan [employer] - [facility] State Plan [id number] N/A [employer] [place] [employer] [place] [id number] N/A History of Encounters Visit Date Visit [...] visit SUJIT QUINTANILLA 01/10/2017 Office visit SUJIT QUINTANILLA 11/29/2016 Office visit SUJIT QUINTANILLA 08/10/2016 Office visit SUJIT QUINTANILLA 12/25/2014 Office visit SUJIT QUINTANILLA
--- OUTSIDE RECORDS SUMMARY | 2019-12-09 12:47 | XMS REPORT ---
Author Author Rhonda ANDERSON Organization [facility] Address [address] [place], [place] [id number] Care Team Providers Care Basketball Scout Name Role Phone SUJIT ANDERSON PCP SUJIT [...] mg oral tablets,dose pack 11/05/2018 TAKE DIRECTED penicillin V potassium 500 mg oral tablet 11/05/2018 019 take 1 tablet (500 mg) by oral route 4 times per day for 10 days cyclobenzaprine 10 mg oral tablet 11/05/2018 take [...] once daily before breakfast for 30 days Discontinued Name Start Date Discontinued Date [...] Rectal bleeding Active 06/14/2018 Hemorrhoids Active 07/03/2018 Vital Signs Date Time BP-Sys(mm[Hg] BP-Lluvia(mm[Hg]) HR(bpm) RR(rpm) Temp WT HT HC BMI BSA BMI Percentile O2 Sat(%) 11/05/2018 8:38:00 AM 150 mmHg 76 mmHg 84 bpm 16 rpm 98.4 F 265 lbs 75 in 33.1224 kg/m 2.522 m 98 % 08/09/2018 2:31:00 PM 151 mmHg [...] F 276 lbs 75 in 34.50 kg/m2 2.5739 m 98 % 06/05/2018 10:28:00 AM [...] Reviewed 11/29/2016 12:00 AM Decadron 8mg Injection, [facility] Medicaid Rev iewed 11/29/2016 12:00 AM Depo-Medrol 80 Mg Injection, [facility] Medicai d Reviewed 02/12/2017 12:00 AM Decadron 8mg Injection, [facility] Medicaid Rev iewed 02/12/2017 12:00 AM Depo-Medrol 80 Mg Injection, [facility] Medicai d Reviewed 02/12/2017 12:00 AM THERAPEUTIC PROPHYLACTIC/DX INJECTION CRAIG BQ/IM Reviewed 08/09/2017 12:00 AM Toradol 60 Mg Injection Reviewed 08/09/2017 12:00 AM THER/PROPH/DIAG INJ SC/IM Reviewed 12/11/2017 12:00 AM THER/PROPH/DIAG INJ SC/IM Reviewed 12/11/2017 12:00 AM Decadron 8mg Injection Reviewed 12/11/2017 12:00 AM Depo-Medrol 80mg Injection Reviewed 12/11/2017 12:00 AM B12 1000mcg Injection, [facility] Medicaid Revi ewed 02/07/2018 12:00 AM THERAPEUTIC PROPHYLACTIC/DX INJECTION CRAIG BQ/IM Reviewed 02/07/2018 12:00 AM Decadron 8mg Injection, [facility] Medicaid Rev iewed 02/07/2018 12:00 AM Depo-Medrol 80 Mg Injection, [facility] Medicai d Reviewed 06/05/2018 12:00 [...] Colon Cancer in situ-removed from sigmoid with scope-[facility] GERD (gastroesophageal reflux disease) 06/14/2018 Gas bloat syndrome 06/14/2018 Abdominal Pain 06/14/2018 Diarrhea 06/14/2018 Rectal bleeding 06/14/2018 Hemorrhoids 07/03/2018 Annual physical exam Dec 25 2014 1:11PM [...] Other chronic pain Nov 05 2018 3:25PM Payers Insurance Name Company Name Plan Name Plan Number Policy Number Nash cy Group Number Start Date [facility] e Comm Plan of [id number] N/A [place] [facility] on [facility] [place] PMRV PHYS/DS PMRV PHYSDS N/A [employer] - [place] State [place] [employer] - [facility] [place] State [place] [id number] N/A [employer] [place] [employer] [place] [id number] N/A History of Encounters Visit Date Visit Type Provider 11/05/2018 Office visit SUJIT ANDERSON PA 08/09/2018 Surgery Adam Bouman DO 07/25/2018 Surgery Adam Bouman DO 07/11/2018 Office visit SUJIT ANDERSON PA 07/05/2018 Office visit SUJIT ANDERSON PA 07/02/2018 Office visit Adam Bouman DO 06/17/2018 Surgery Adam Bouman DO 06/11/2018 Office visit SUJIT ANDERSON PA 06/05/2018 Office visit Adam Bouman DO 06/05/2018 Office visit SUJIT ANDERSON PA [...]
--- OUTSIDE RECORDS SUMMARY | 2019-12-09 12:47 | XMS REPORT ---
Author Author Rhonda ANDERSON Organization [facility] Address [address] [facility] [address] [place], [place] [id number] Care Team Providers Care Brand Engineer Name Role Phone SUJIT ANDERSON PCP SUJIT ANDERSON PreferredProvider Allergies and Adverse Reactions Name Reaction Notes No known drug allergy Plan of Treatment Not available. Medications Active Name Start Date Estimated Completion Date SIG Co mments diclofenac sodium 75 mg oral tablet,delayed release (DR/EC) 08/09 take 1 tablet (75 mg) by oral route 2 times per day for 30 days gemfibrozil 600 mg oral tablet 10/04/2017 t [...] intramuscular route once as needed for anaphylaxis Pristiq 50 mg oral tablet extended release 24 hr 03/19/2018 take 1 tablet (50 mg) by oral route once daily phentermine 37.5 mg oral tablet 06/28/2018 07/28/2018 take 1 tablet (37.5 mg) by oral route once daily before breakfast for 30 days Levsin 0.125 mg oral tablet take 1 tablet (0.125 mg) by oral route every 4 hours as needed Zantac 300 mg oral tablet take 1 tablet (300 mg) by oral route once daily at bedtime cetirizine 10 mg oral tablet 07/15/2018 TAKE 1 TABLE T BY MOUTH EVERY DAY Xanax 0.5 mg oral tablet 07/16/2018 10/14/2018 1/2 to 1 twice daily as needed for anxiety must last 30 days hydrocodone-ibuprofen 7.5-200 mg oral tablet 07/16/2018 take 1 tablet by oral route every 6 hours as needed for pain not to exceed 5 tablets in 24hrs Name Start Date Expiration Date SIG Comments [...] HC BMI BSA BMI Percentile O2 Sat(%) 07/05/2018 10:34:00 AM 150 mmHg 70 mmHg [...] Reviewed 11/29/2016 12:00 AM Decadron 8mg Injection, [facility] Medicaid Rev iewed 11/29/2016 12:00 AM Depo-Medrol 80 Mg Injection, [facility] Medicai d Reviewed 02/12/2017 12:00 AM Decadron 8mg Injection, [facility] Medicaid Rev iewed 02/12/2017 12:00 AM Depo-Medrol 80 Mg Injection, [facility] Medicai d Reviewed 02/12/2017 12:00 AM THERAPEUTIC PROPHYLACTIC/DX INJECTION CRAIG BQ/IM Reviewed 08/09/2017 12:00 AM Toradol 60 Mg Injection Reviewed 08/09/2017 12:00 AM THER/PROPH/DIAG INJ SC/IM Reviewed 12/11/2017 12:00 AM THER/PROPH/DIAG INJ SC/IM Reviewed 12/11/2017 12:00 AM Decadron 8mg Injection Reviewed 12/11/2017 12:00 AM Depo-Medrol 80mg Injection Reviewed 12/11/2017 12:00 AM B12 1000mcg Injection, [facility] Medicaid Revi ewed 02/07/2018 12:00 AM THERAPEUTIC PROPHYLACTIC/DX INJECTION CRAIG BQ/IM Reviewed 02/07/2018 12:00 AM Decadron 8mg Injection, [facility] Medicaid Rev iewed 02/07/2018 12:00 AM Depo-Medrol 80 Mg Injection, [facility] Medicai d Reviewed 06/05/2018 12:00 AM THERAPEUTIC PROPHYLACTIC/DX INJECTION CRAIG BQ/IM Reviewed 06/05/2018 12:00 AM Decadron 8mg Injection, [facility] Medicaid Rev iewed 06/05/2018 12:00 AM Depo-Medrol 80 Mg Injection, [facility] Medicai d Reviewed 07/02/2018 12:00 AM COMPLETE CBC W/AUTO DIFF WBC Reviewed 07/02/2018 12:00 AM COMPREHEN METABOLIC PANEL Reviewed 12/25/2014 12:00 AM PMRV Drug Screen [...] with bilateral sciatica 2016 Pure hypercholesterolemia 09/20/2017 GERD (gastroesophageal reflux disease) Irritable bowel syndrome (IBS) Anxiety Depression Leukemia Colon Cancer in situ-removed from sigmoid with scope-[facility] GERD (gastroesophageal reflux disease) 06/14/2018 [...] 10:29AM Upper respiratory tract infection, unspecified type Jun 05 10:29AM Stomach flu Jun 05 2018 10:29AM Tooth ache Jun 11 2018 8:35AM Gas bloat syndrome Jun 05 2018 4:21PM Diarrhea Jun 05 2018 4:21PM Hemorrhoids Jul 02 2018 3:22PM Preop examination Jul 02 2018 3:22PM Seborrheic keratosis, inflamed Jul 05 2018 10:35AM Seborrheic keratosis, inflamed Jul 11 2018 3:40PM Payers Insurance Name Company Name Plan Name Plan Number Policy Number Nash cy Group Number Start Date [employer] [place] [employer] [place] [id number] N/[place] [employer] [place] [employer] [place] [id number] N/A [facility] on Longterm [place] PMRV PHYS/DS PMRV PHYSDS N/A History of Encounters Visit Date Visit Type Provider 07/11/2018 Office visit SUJIT QUINTANILLA 07/05/2018 Office [...]
--- OUTSIDE RECORDS SUMMARY | 2019-12-09 12:47 | XMS REPORT ---
Author Author Rhonda Dykes Organization [facility] Address [address] [facility] [address] [place], [place] [id number] Care Team Providers Care Roving Court Reporter Name Role Phone Adam Dykes PCP SUJIT [...] (50 mg) by oral route once daily Levsin 0.125 mg oral tablet take 1 [...] 24hrs methylprednisolone 4 mg oral tablets,dose pack 08/02/2018 TAKE DIRECTED phentermine 37.5 mg oral tablet 08/05/2018 09/04/2018 take 1 tablet (37.5 mg) by oral route once daily before breakfast for 30 days Name Start Date Expiration Date SIG Comments [...] HC BMI BSA BMI Percentile O2 Sat(%) 08/09/2018 2:31:00 PM 151 mmHg 91 mmHg [...] Reviewed 11/29/2016 12:00 AM Decadron 8mg Injection, [facility] Medicaid Rev iewed 11/29/2016 12:00 AM Depo-Medrol 80 Mg Injection, [facility] Medicai d Reviewed 02/12/2017 12:00 AM Decadron 8mg Injection, [facility] Medicaid Rev iewed 02/12/2017 12:00 AM Depo-Medrol [...] Reviewed 12/11/2017 12:00 AM B12 1000mcg Injection, [facility] Medicaid Revi ewed 02/07/2018 12:00 AM THERAPEUTIC PROPHYLACTIC/DX INJECTION CRAIG BQ/IM Reviewed 02/07/2018 12:00 AM Decadron 8mg Injection, [facility] Medicaid Rev iewed 02/07/2018 12:00 AM Depo-Medrol 80 Mg Injection, [facility] Medicai d Reviewed 06/05/2018 12:00 AM THERAPEUTIC PROPHYLACTIC/DX INJECTION CRAIG BQ/IM Reviewed 06/05/2018 12:00 AM Decadron 8mg Injection, [facility] Medicaid Rev iewed 06/05/2018 12:00 AM Depo-Medrol 80 Mg Injection, [facility] Medicai d Reviewed 07/02/2018 12:00 AM COMPLETE [...] Colon Cancer in situ-removed from sigmoid with scope-[facility] GERD (gastroesophageal reflux disease) 06/14/2018 [...] Plan Name Plan Number Policy Number Nash Group Number Start Date [employer] [place] [employer] [place] [id number] [place] [employer] [place] [employer] [place] [id number] N/A [facility] on [facility] [place] PMRV PHYS/DS PMRV PHYSDS N/A History of Encounters Visit Date Visit Type Provider 08/09/2018 Surgery Adam Dykes DO 07/25/2018 Surgery Adam Dykes DO 07/11/2018 Office visit SUJIT QUINTANILLA 07/05/2018 Office visit SUJIT QUINTANILLA 07/02/2018 Office visit Adam Dykes DO 06/17/2018 Surgery Adam yDkes DO 06/11/2018 Office visit SUJIT QUINTANILLA 06/05/2018 Office visit Adam Dykes DO 06/05/2018 Office visit SUJIT QUINTANILLA 05/27/2018 Office visit SUJIT QUINTANILLA 05/13/2018 Office visit SUJIT QUINTANILLA 03/19/2018 Office visit SUJIT QUINTANILLA 02/07/2018 Office visit SUJIT QUINTANILLA 12/26/2017 Office visit SUJIT QUINTANILLA 12/11/2017 Office visit SUJIT QUINTANILLA 09/20/2017 Office visit SUJIT ANDERSON PA 08/09/2017 Office visit SUJIT ANDERSON PA 06/28/2017 Office visit SUJIT ANDERSON PA 04/12/2017 Office visit SUJIT ANDERSON PA 02/12/2017 Office visit SUJIT ANDERSON PA 01/10/2017 Office visit SUJIT ANDERSON PA 11/29/2016 Office visit SUJIT ANDERSON PA 08/10/2016 Office visit SUJIT ANDERSON PA 12/25/2014 Office visit SUJIT ANDERSON PA
--- OUTSIDE RECORDS SUMMARY | 2019-12-09 12:47 | XMS REPORT ---
Author Author Rhonda Dykes Organization [facility] Address [address] [facility] [address] [place], [place] [id number] Care Team Providers Care Recordings Librarian Name Role Phone Adam Dykes PCP SUJIT [...] Reviewed 11/29/2016 12:00 AM Decadron 8mg Injection, [facility] Medicaid Rev iewed 11/29/2016 12:00 AM Depo-Medrol [...] Reviewed 12/11/2017 12:00 AM B12 1000mcg Injection, [facility] Medicaid Revi ewed 02/07/2018 12:00 AM THERAPEUTIC PROPHYLACTIC/DX INJECTION CRAIG BQ/IM Reviewed 02/07/2018 12:00 AM Decadron 8mg Injection, [facility] Medicaid Rev iewed 02/07/2018 12:00 AM Depo-Medrol 80 Mg Injection, [facility] Medicai d Reviewed 06/05/2018 12:00 AM THERAPEUTIC PROPHYLACTIC/DX INJECTION CRAIG BQ/IM Reviewed 06/05/2018 12:00 AM Decadron 8mg Injection, [facility] Medicaid Rev iewed 06/05/2018 12:00 AM Depo-Medrol [...] Cancer in situ-removed from sigmoid with scope-[facility] GERD (gastroesophageal reflux disease) 06/14/2018 Gas [...] Plan [employer] [place] [id number] N/[place] [employer] [place] [facility] [id number] N/A [facility] [place] PMRV PHYS/DS PMRV PHYSDS N/A History of Encounters Visit Date Visit Type Provider 07/25/2018 Surgery Adam Dykes DO 07/11/2018 Office [...]
--- OUTSIDE RECORDS SUMMARY | 2019-12-09 12:48 | XMS REPORT ---
Author Author Rhonda Dykes Organization [facility] ou Address [address] [facility] [address] [place], [place] [phone] Care Team Providers Care Acoustic Sensor Operator Name Role Phone Adam Dykes PCP [...] (50 mg) by oral route once daily Xanax 0.5 mg oral tablet 05/02/2018 07/31/2018 1/2 to 1 twice daily as needed for anxiety must last 30 days Golytely 236-22.74-6.74 -5.86 gram oral recon soln 06/05/2018 take as directed hydrocodone-ibuprofen 7.5-200 mg oral tablet 06/11/2018 take 1 tablet by oral route every 6 hours as needed for pain not to exceed 5 tablets in 24hrs penicillin V potassium 500 mg oral tablet 06/11/2018 018 take 1 tablet (500 mg) by oral route 4 times per day for 10 days Name Start Date Expiration Date SIG [...] oral route every 12 hours as needed cetirizine 10 mg oral tablet 12/12/2017 03/12/2018 piper e 1 tablet (10 mg) by oral route once daily for 30 days phentermine 37.5 mg oral tablet 05/13/2018 06/12/2018 take 1 tablet (37.5 mg) by oral route once daily before breakfast for 30 days Xifaxan 550 mg oral tablet 05/28/2018 06/11/2018 take 1 tablet (550 mg) by oral route 3 times per day for 14 days Discontinued Name Start Date Discontinued Date [...] Diarrhea Active 06/14/2018 Rectal bleeding Active 06/14/2018 Vital Signs Date Time BP-Sys(mm[Hg] BP-Lluvia(mm[Hg]) HR(bpm) RR(rpm) Temp WT HT HC BMI BSA BMI Percentile O2 Sat(%) 06/11/2018 8:34:00 AM 130 mmHg 84 mmHg [...] Reviewed 11/29/2016 12:00 AM Decadron 8mg Injection, [facility] Medicaid Rev iewed 11/29/2016 12:00 AM Depo-Medrol 80 Mg Injection, [facility] Medicai d Reviewed 02/12/2017 12:00 AM Decadron 8mg Injection, [facility] Medicaid Rev iewed 02/12/2017 12:00 AM Depo-Medrol 80 Mg Injection, [facility] Medicai d Reviewed 02/12/2017 12:00 AM THERAPEUTIC PROPHYLACTIC/DX INJECTION CRAIG BQ/IM Reviewed 08/09/2017 12:00 AM Toradol 60 Mg Injection Reviewed 08/09/2017 12:00 AM THER/PROPH/DIAG INJ SC/IM Reviewed 12/11/2017 12:00 AM THER/PROPH/DIAG INJ SC/IM Reviewed 12/11/2017 12:00 AM Decadron 8mg Injection Reviewed 12/11/2017 12:00 AM Depo-Medrol 80mg Injection Reviewed 12/11/2017 12:00 AM B12 1000mcg Injection, [facility] Medicaid Revi ewed 02/07/2018 12:00 AM THERAPEUTIC PROPHYLACTIC/DX INJECTION CRAIG BQ/IM Reviewed 02/07/2018 12:00 AM Decadron 8mg Injection, [facility] Medicaid Rev iewed 02/07/2018 12:00 AM Depo-Medrol 80 Mg Injection, [facility] Medicai d Reviewed 06/05/2018 12:00 AM THERAPEUTIC PROPHYLACTIC/DX INJECTION CRAIG BQ/IM Reviewed 06/05/2018 12:00 AM Decadron 8mg Injection, [facility] Medicaid Rev iewed 06/05/2018 12:00 AM Depo-Medrol 80 Mg Injection, [facility] Medicai d Reviewed 12/25/2014 12:00 AM PMRV Drug Screen Collection Reviewed Results Summary Not available. History Of Immunizations Not available. History of Past Illness Name Date of Onset Comments indigestion Carpal tunnel syndrome 01/21/2017 Cubital tunnel syndrome on right 01/21/2017 Chronic midline low back pain with bilateral sciatica 2016 Pure hypercholesterolemia 09/20/2017 GERD (gastroesophageal reflux disease) Irritable bowel syndrome (IBS) Anxiety Depression Leukemia Colon Cancer in situ-removed from sigmoid with scope-[facility] GERD (gastroesophageal reflux disease) 06/14/2018 Gas bloat syndrome 06/14/2018 Abdominal pain 06/14/2018 Diarrhea 06/14/2018 Rectal bleeding 06/14/2018 Annual physical exam Dec 25 2014 1:11PM [...] respiratory tract infection, unspecified type Jun 05 2 018 10:29AM Stomach flu Jun 05 2018 10:29AM Tooth ache Jun 11 2018 8:35AM Gas bloat syndrome Jun 05 2018 4:21PM Diarrhea Jun 05 2018 4:21PM Payers Insurance Name Company Name Plan Name Plan Number Policy Number Nash cy Group Number Start Date [employer] [place] [employer] [place] [id number] N/[place] [employer] [place] [employer] [place] [id number] N/A [facility] on [facility]illed [facility] [place] PMRV PHYS/DS PMRV PHYSDS N/A History of Encounters Visit Date Visit Type Provider 06/17/2018 Surgery Adam Dykes DO 06/11/2018 Office [...]
--- OUTSIDE RECORDS SUMMARY | 2019-12-09 12:48 | XMS REPORT ---
Author Author Rhonda ANDERSON Organization [facility] Address [address] [facility] [address] [place], [place] [id number] Care Team Providers Care Underwater Roboticist Name Role Phone SUJIT ANDERSON PCP SUJIT [...] Reviewed 12/11/2017 12:00 AM B12 1000mcg Injection, [facility] Medicaid Revi ewed 02/07/2018 12:00 AM THERAPEUTIC PROPHYLACTIC/DX INJECTION CRAIG BQ/IM Reviewed 02/07/2018 12:00 AM Decadron 8mg Injection, [facility] Medicaid Rev iewed 02/07/2018 12:00 AM Depo-Medrol 80 Mg Injection, [facility] Medicai d Reviewed 06/05/2018 12:00 AM THERAPEUTIC PROPHYLACTIC/DX INJECTION CRAIG BQ/IM Reviewed 06/05/2018 12:00 AM Decadron 8mg Injection, [facility] Medicaid Rev iewed 06/05/2018 12:00 AM Depo-Medrol [...] Colon Cancer in situ-removed from sigmoid with scope-[facility] GERD (gastroesophageal reflux disease) 06/14/2018 [...] Plan [employer] [place] [id number] [place] [employer] [place] [employer] [place] [id number] N/A [facility] on [facility] [place] PMRV PHYS/DS PMRV PHYSDS N/A [...]
--- OUTSIDE RECORDS SUMMARY | 2019-12-09 12:48 | XMS REPORT ---
Author Author Rhonda ANDERSON Organization [facility] ou Address [address] [place], [place] [phone] Care Team Providers Care Film Inspector Name Role Phone SUJIT ANDERSON PCP SUJIT ANDERSON PreferredProvider Allergies and Adverse Reactions Name Reaction Notes No known drug allergy Plan of Treatment Planned Activity Comments Planned Date Planned Time Plan/Goal CBC W/ AUTO DIFF (RFLX MAN DIFF IF IND). 07/02/2018 12:00 AM CMP 07/02/2018 12:00 AM Medications Active Name Start Date Estimated Completion [...] 30 days hydrocodone-ibuprofen 7.5-200 mg oral tablet 06/11/2018 take 1 tablet by oral route every 6 hours as needed for pain not to exceed 5 tablets in 24hrs phentermine 37.5 mg oral tablet 06/28/2018 07/28/2018 take 1 tablet (37.5 mg) by oral route once daily before breakfast for 30 days Levsin 0.125 mg oral tablet take 1 tablet (0.125 mg) by oral route every 4 hours as needed Zantac 300 mg oral tablet take 1 tablet (300 mg) by oral route once daily at bedtime Name Start Date Expiration Date SIG Comments [...] oral route once daily for 30 days Xifaxan 550 mg oral [...] Reviewed 11/29/2016 12:00 AM Decadron 8mg Injection, [facility] Medicaid Rev iewed 11/29/2016 12:00 AM Depo-Medrol 80 Mg Injection, [facility] Medicai d Reviewed 02/12/2017 12:00 AM Decadron 8mg Injection, [facility] Medicaid Rev iewed 02/12/2017 12:00 AM Depo-Medrol 80 Mg Injection, [facility] Medicai d Reviewed 02/12/2017 12:00 AM THERAPEUTIC PROPHYLACTIC/DX INJECTION CRAIG BQ/IM Reviewed 08/09/2017 12:00 AM Toradol 60 Mg Injection Reviewed 08/09/2017 12:00 AM THER/PROPH/DIAG INJ SC/IM Reviewed 12/11/2017 12:00 AM THER/PROPH/DIAG INJ SC/IM Reviewed 12/11/2017 12:00 AM Decadron 8mg Injection Reviewed 12/11/2017 12:00 AM Depo-Medrol 80mg Injection Reviewed 12/11/2017 12:00 AM B12 1000mcg Injection, [facility] Medicaid Revi ewed 02/07/2018 12:00 AM THERAPEUTIC PROPHYLACTIC/DX INJECTION CRAIG BQ/IM Reviewed 02/07/2018 12:00 AM Decadron 8mg Injection, [facility] Medicaid Rev iewed 02/07/2018 12:00 AM Depo-Medrol 80 Mg Injection, [facility] Medicai d Reviewed 06/05/2018 12:00 AM THERAPEUTIC PROPHYLACTIC/DX INJECTION CRAIG BQ/IM Reviewed 06/05/2018 12:00 AM Decadron 8mg Injection, [facility] Medicaid Rev iewed 06/05/2018 12:00 AM Depo-Medrol 80 Mg Injection, [facility] Medicai d Reviewed 12/25/2014 12:00 AM PMRV [...] Seborrheic keratosis, inflamed Jul 05 2018 10:35AM Payers Insurance Name Company Name Plan Name Plan Number Policy Number Nash cy Group Number Start Date [employer] [place] [employer] [place] [id number] [place] [employer] [place] [employer] [place] [id number] N/A [place] [facility] [place] PMRV PHYS/DS PMRV PHYSDS N/A History of Encounters Visit Date Visit Type Provider 07/05/2018 Office visit SUJIT ANDERSON PA 07/02/2018 Office visit Adam Dykes DO 06/17/2018 Surgery Adam Jania DO 06/11/2018 Office visit SUJIT ANDERSON PA 06/05/2018 Office visit Adam Dykes DO 06/05/2018 Office visit SUJIT ANDERSON PA [...]
--- OUTSIDE RECORDS SUMMARY | 2019-12-09 12:48 | XMS REPORT ---
Author Author Rhonda Dykes Organization [facility] Address [address] [place], [place] [phone] Care Team Providers Care Call Center Consultant Name Role Phone Adam Dykes PCP SUJIT [...] HC BMI BSA BMI Percentile O2 Sat(%) 07/02/2018 3:20:00 PM 160 mmHg 88 mmHg 109 bpm 20 rpm 97.6 F 268.5 lbs 75 i n 33.5599 kg/m 2.5386 m 06/28/2018 7:41:00 AM 267 lbs 06/11/2018 8:34:00 [...] Reviewed 11/29/2016 12:00 AM Decadron 8mg Injection, [facility] Medicaid Rev iewed 11/29/2016 12:00 AM Depo-Medrol 80 Mg Injection, [facility] Medicai d Reviewed 02/12/2017 12:00 AM Decadron 8mg Injection, [facility] Medicaid Rev iewed 02/12/2017 12:00 AM Depo-Medrol 80 Mg Injection, [facility] Medicai d Reviewed 02/12/2017 12:00 AM THERAPEUTIC PROPHYLACTIC/DX INJECTION CRAIG BQ/IM Reviewed 08/09/2017 12:00 AM Toradol 60 Mg Injection Reviewed 08/09/2017 12:00 AM THER/PROPH/DIAG INJ SC/IM Reviewed 12/11/2017 12:00 AM THER/PROPH/DIAG INJ SC/IM Reviewed 12/11/2017 12:00 AM Decadron 8mg Injection Reviewed 12/11/2017 12:00 AM Depo-Medrol 80mg Injection Reviewed 12/11/2017 12:00 AM B12 1000mcg Injection, [facility] Medicaid Revi ewed 02/07/2018 12:00 AM THERAPEUTIC PROPHYLACTIC/DX INJECTION CRAIG BQ/IM Reviewed 02/07/2018 12:00 AM Decadron 8mg Injection, [facility] Medicaid Rev iewed 02/07/2018 12:00 AM Depo-Medrol 80 Mg Injection, [facility] Medicai d Reviewed 06/05/2018 12:00 AM THERAPEUTIC PROPHYLACTIC/DX INJECTION CRAIG BQ/IM Reviewed 06/05/2018 12:00 AM Decadron 8mg Injection, [facility] Medicaid Rev iewed 06/05/2018 12:00 AM Depo-Medrol 80 Mg Injection, [facility] Medicai d Reviewed 12/25/2014 12:00 AM [...] Colon Cancer in situ-removed from sigmoid with scope-[facility] GERD (gastroesophageal reflux disease) 06/14/2018 [...] 3:22PM Preop examination Jul 02 2018 3:22PM Payers Insurance Name Company Name Plan Name Plan Number Policy Number Nash cy Group Number Start Date [employer] [place] [employer] [place] [facility] [place] [id number] N/A [employer] [place] State [place] [employer] [place] State Plan [id number] N/A [facility] on Nursing Home [place] PMRV PHYS/DS PMRV PHYSDS N/A History of Encounters Visit Date Visit Type Provider 07/02/2018 Office visit Adam Dykes DO 06/17/2018 Surgery Adam Dykes DO 06/11/2018 Office visit SUJIT ANDERSON PA 06/05/2018 Office visit Adam Dykes DO 06/05/2018 Office visit SUJIT ANDERSON PA 05/27/2018 Office visit SUJIT QUINTANILLA 05/13/2018 Office visit SUJIT ANDERSON PA 03/19/2018 Office visit SUJIT QUINTANILLA 02/07/2018 Office [...]
--- OUTSIDE RECORDS SUMMARY | 2019-12-09 12:49 | XMS REPORT ---
Author Author Rhonda ANDERSON Organization [facility] Address [address] [place], [place] [address] Care Team Providers Care Pile Driving Nozzleman Name Role Phone SUJIT ANDERSON PCP SUJIT [...] Reviewed 11/29/2016 12:00 AM Decadron 8mg Injection, [facility] Medicaid Rev iewed 11/29/2016 12:00 AM Depo-Medrol 80 Mg Injection, [facility] Medicai d Reviewed 02/12/2017 12:00 AM Decadron 8mg Injection, [facility] Medicaid Rev iewed 02/12/2017 12:00 AM Depo-Medrol 80 Mg Injection, [facility] Medicai d Reviewed 02/12/2017 12:00 AM THERAPEUTIC PROPHYLACTIC/DX INJECTION CRAIG BQ/IM Reviewed 08/09/2017 12:00 AM Toradol 60 Mg Injection Reviewed 08/09/2017 12:00 AM THER/PROPH/DIAG INJ SC/IM Reviewed 12/11/2017 12:00 AM THER/PROPH/DIAG INJ SC/IM Reviewed 12/11/2017 12:00 AM Decadron 8mg Injection Reviewed 12/11/2017 12:00 AM Depo-Medrol 80mg Injection Reviewed 12/11/2017 12:00 AM B12 1000mcg Injection, [facility] Medicaid Revi ewed 02/07/2018 12:00 AM THERAPEUTIC PROPHYLACTIC/DX INJECTION CARIG BQ/IM Reviewed 02/07/2018 12:00 AM Decadron 8mg Injection, [facility] Medicaid Rev iewed 02/07/2018 12:00 AM Depo-Medrol 80 Mg Injection, [facility] Medicai d Reviewed 06/05/2018 12:00 AM THERAPEUTIC PROPHYLACTIC/DX INJECTION CRAIG BQ/IM Reviewed 06/05/2018 12:00 AM Decadron 8mg Injection, [facility] Medicaid Rev iewed 06/05/2018 12:00 AM Depo-Medrol 80 Mg Injection, [facility] Medicai d Reviewed 12/25/2014 12:00 AM PMRV [...] Colon Cancer in situ-removed from sigmoid with scope-[facility] GERD (gastroesophageal reflux disease) [...] Name Plan Name Plan Number Policy Number [place] Group Number Start Date [employer] [place] [employer] [place] [id number] N/A [employer] [place] [employer] [place] [id number] N/A [facility] [place] PMRV PHYS/DS PMRV PHYSDS N/A History of Encounters Visit Date Visit Type Provider 06/11/2018 Office visit SUJIT QUINTANILLA 06/05/2018 Office [...] SUJIT ANDERSON PA 02/12/2017 Office visit SUJIT QUINTANILLA 01/10/2017 Office visit SUJIT QUINTANILLA 11/29/2016 Office visit SUJIT ANDERSON PA 08/10/2016 Office visit SUJIT QUINTANILLA 12/25/2014 Office visit SUJIT QUINTANILLA
--- OUTSIDE RECORDS SUMMARY | 2019-12-09 12:49 | XMS REPORT ---
Author Author Rhonda Dykes Organization [facility] Address [address] [facility] [address] [place], [place] [id number] Care Team Providers Care Factory Process Workers Name Role Phone Adam Dykes PCP SUJIT [...] (50 mg) by oral route once daily hydrocodone-ibuprofen 7.5-200 mg oral tablet 05/02/2018 take 1 tablet by oral route every 6 hours as needed for pain not to exceed 5 tablets in 24hrs Xanax 0.5 mg oral tablet 05/02/2018 07/31/2018 [...] oral recon soln 06/05/2018 take as directed Name Start Date Expiration Date SIG Comments [...] oral route once daily for 30 days Discontinued Name Start Date [...] sciatica Active 02/18/2017 Pure hypercholesterolemia Active 09/20/2017 Vital Signs Date Time BP-Sys(mm[Hg] BP-Lluvia(mm[Hg]) HR(bpm) RR(rpm) Temp WT HT HC BMI BSA BMI Percentile O2 Sat(%) 06/05/2018 10:28:00 AM 160 mmHg 90 mmHg 84 bpm 18 rpm 98.3 F 281 lbs 75 in 35.1222 kg/m 2.5971 m 98 % 05/27/2018 10:48:00 AM 142 mmHg 82 mmHg 78 bpm 18 rpm 98.3 F 282 lbs 75 in 35.25 kg/m2 2.60 m2 98 % 05/13/2018 7:55:00 AM 116 mmHg 74 mmHg 105 bpm 18 rpm 98.1 F 285 lbs 75 in 35.6222 kg/m 2.6155 m 98 % 04/26/2018 8:05:00 AM 279 lbs [...] rpm 96.5 F 277 lbs 75 in 34.6223 kg/m 2.58 m2 98 % Social History Name Description Comments Uses seatbelts Alcohol Never Exercises regularly Current every day Tobacco Never smoker History of Procedures Date Ordered Description Order Status 11/29/2016 12:00 AM THERAPEUTIC PROPHYLACTIC/DX INJECTION CRAIG BQ/IM Reviewed 11/29/2016 12:00 AM Decadron 8mg Injection, [facility] Medicaid Rev iewed 11/29/2016 12:00 AM Depo-Medrol 80 Mg Injection, [facility] Medicai d Reviewed 02/12/2017 12:00 AM Decadron 8mg Injection, [facility] Medicaid Rev iewed 02/12/2017 12:00 AM Depo-Medrol 80 Mg Injection, [facility] Medicai d Reviewed 02/12/2017 12:00 AM THERAPEUTIC PROPHYLACTIC/DX INJECTION CRAIG BQ/IM Reviewed 08/09/2017 12:00 AM Toradol 60 Mg Injection Reviewed 08/09/2017 12:00 AM THER/PROPH/DIAG INJ SC/IM Reviewed 12/11/2017 12:00 AM THER/PROPH/DIAG INJ SC/IM Reviewed 12/11/2017 12:00 AM Decadron 8mg Injection Reviewed 12/11/2017 12:00 AM Depo-Medrol 80mg Injection Reviewed 12/11/2017 12:00 AM B12 1000mcg Injection, [facility] Medicaid Revi ewed 02/07/2018 12:00 AM THERAPEUTIC PROPHYLACTIC/DX INJECTION CRAIG BQ/IM Reviewed 02/07/2018 12:00 AM Decadron 8mg Injection, [facility] Medicaid Rev iewed 02/07/2018 12:00 AM Depo-Medrol 80 Mg Injection, [facility] Medicai d Reviewed 06/05/2018 12:00 AM THERAPEUTIC PROPHYLACTIC/DX INJECTION CRAIG BQ/IM Reviewed 06/05/2018 12:00 AM Decadron 8mg Injection, [facility] Medicaid Rev iewed 06/05/2018 12:00 AM Depo-Medrol 80 Mg Injection, [facility] Medicai d Reviewed 12/25/2014 12:00 AM PMRV [...] situ-removed from sigmoid with scope-[facility] Annual physical exam Dec 25 2014 1:11PM [...] 10:29AM Stomach flu Jun 05 2018 10:29AM Payers Insurance Name Company Name Plan Name Plan Number Policy Number [place] Group Number Start Date [employer] [place] [employer] [place] [id number] N/A [employer] [place] [employer] [place] Plan [id number] N/A [facility] [address] [place] PMRV PHYS/DS PMRV PHYSDS N/A History of Encounters Visit Date Visit Type Provider 06/05/2018 Office visit Adam Dykes DO 06/05/2018 [...]
--- OUTSIDE RECORDS SUMMARY | 2019-12-09 12:49 | XMS REPORT ---
Author Author Rhonda Dykes Organization [facility] Address [address] [facility] [facility] [address] [place], [place] [address] Care Team Providers Care Fingernail Technician Name Role Phone Adam Dykes PCP SUJIT [...] Reviewed 11/29/2016 12:00 AM Decadron 8mg Injection, [facility] Medicaid Rev iewed 11/29/2016 12:00 AM Depo-Medrol 80 Mg Injection, [facility] Medicai d Reviewed 02/12/2017 12:00 AM Decadron 8mg Injection, [facility] Medicaid Rev iewed 02/12/2017 12:00 AM Depo-Medrol 80 Mg Injection, [facility] Medicai d Reviewed 02/12/2017 12:00 AM THERAPEUTIC PROPHYLACTIC/DX INJECTION CRAIG BQ/IM Reviewed 08/09/2017 12:00 AM Toradol 60 Mg Injection Reviewed 08/09/2017 12:00 AM THER/PROPH/DIAG INJ SC/IM Reviewed 12/11/2017 12:00 AM THER/PROPH/DIAG INJ SC/IM Reviewed 12/11/2017 12:00 AM Decadron 8mg Injection Reviewed 12/11/2017 12:00 AM Depo-Medrol 80mg Injection Reviewed 12/11/2017 12:00 AM B12 1000mcg Injection, [facility] Medicaid Revi ewed 02/07/2018 12:00 AM THERAPEUTIC PROPHYLACTIC/DX INJECTION CRAIG BQ/IM Reviewed 02/07/2018 12:00 AM Decadron 8mg Injection, [facility] Medicaid Rev iewed 02/07/2018 12:00 AM Depo-Medrol 80 Mg Injection, [facility] Medicai d Reviewed 06/05/2018 12:00 AM THERAPEUTIC PROPHYLACTIC/DX INJECTION CRAIG BQ/IM Reviewed 06/05/2018 12:00 AM Decadron 8mg Injection, [facility] Medicaid Rev iewed 06/05/2018 12:00 AM Depo-Medrol 80 Mg Injection, [facility] Medicai d Reviewed 12/25/2014 12:00 AM PMRV [...] Colon Cancer in situ-removed from sigmoid with scope-[facility] GERD (gastroesophageal reflux disease) 06/14/2018 Gas [...] Plan [employer] [place] State Plan [id number] N/A [employer] [place] [employer] [place] [id number] N/A [facility] [place] PMRV PHYS/DS PMRV PHYSDS N/A [...]
--- OUTSIDE RECORDS SUMMARY | 2019-12-09 12:49 | XMS REPORT ---
Author Author Rhonda ANDERSON Organization [facility] Address [address] [facility] [address] [place], [place] [id number] Care Team Providers Care Cocoa Room Operator Name Role Phone SUJIT ANDERSON PCP SUJIT [...] 11/29/2016 12:00 AM Decadron 8mg Injection, [facility] Medicaid Rev iewed 11/29/2016 12:00 AM Depo-Medrol 80 Mg Injection, [facility] Medicai d Reviewed 02/12/2017 12:00 AM Decadron 8mg Injection, [facility] Medicaid Rev iewed 02/12/2017 12:00 AM Depo-Medrol 80 Mg Injection, [facility] Medicai d Reviewed 02/12/2017 12:00 AM THERAPEUTIC PROPHYLACTIC/DX INJECTION CRAIG BQ/IM Reviewed 08/09/2017 12:00 AM Toradol 60 Mg Injection Reviewed 08/09/2017 12:00 AM THER/PROPH/DIAG INJ SC/IM Reviewed 12/11/2017 12:00 AM THER/PROPH/DIAG INJ SC/IM Reviewed 12/11/2017 12:00 AM Decadron 8mg Injection Reviewed 12/11/2017 12:00 AM Depo-Medrol 80mg Injection Reviewed 12/11/2017 12:00 AM B12 1000mcg Injection, [facility] Medicaid Revi ewed 02/07/2018 12:00 AM THERAPEUTIC PROPHYLACTIC/DX INJECTION CRAIG BQ/IM Reviewed 02/07/2018 12:00 AM Decadron 8mg Injection, [facility] Medicaid Rev iewed 02/07/2018 12:00 AM Depo-Medrol 80 Mg Injection, [facility] Medicai d Reviewed 06/05/2018 12:00 AM THERAPEUTIC PROPHYLACTIC/DX INJECTION CRAIG BQ/IM Reviewed 06/05/2018 12:00 AM Decadron 8mg Injection, [facility] Medicaid Rev iewed 06/05/2018 12:00 AM Depo-Medrol 80 Mg Injection, [facility] Medicai d Reviewed 12/25/2014 12:00 AM [...] Colon Cancer in situ-removed from sigmoid with scope-[facility] Annual physical exam Dec 25 2014 1:11PM [...] 10:29AM Tooth ache Jun 11 2018 8:35AM Payers Insurance Name Company Name Plan Name Plan Number Policy Number [place] Group Number Start Date [employer] [place] [employer] [place] [id number] N/A [employer] [place] [employer] [place] [id number] N/A [facility] [place] PMRV PHYS/DS [...]
--- OUTSIDE RECORDS SUMMARY | 2019-12-09 12:50 | XMS REPORT ---
Author Author Rhonda ANDERSON Organization [facility] Address [address] [place], [place] [id number] Care Team Providers Care Fashion Director Party Plan Sales Name Role Phone SUJIT ANDERSON PCP Unavailable Allergies and Adverse Reactions Not available. Plan of Treatment Not available. Medications Active Name Start Date Estimated Completion Date SIG Co mments Belviq 10 mg oral tablet take 1 tablet (10 mg) by oral route 2 times per day omeprazole 40 mg oral capsule,delayed release(DR/EC) penicillin V potassium 500 mg oral tablet 01/25/2016 take 1 tablet (500 mg) by oral route 3 times per day Name Start Date Expiration Date SIG Comments Zithromax Z-Oscar 250 mg oral tablet 09/29/2015 10/04/2015 take 2 tablets (500 mg) by oral route once daily for 1 day then 1 tablet (250 mg) by oral route once daily for 4 days Medrol (Oscar) 4 mg oral tablets,dose pack 09/29/2015 6 take as directed for 5 days Problem List Not available. Vital Signs Date Time BP-Sys(mm[Hg] BP-Lluvia(mm[Hg]) HR(bpm) RR(rpm) Temp WT HT HC BMI BSA BMI Percentile O2 Sat(%) 08/10/2016 4:13:00 PM 145 mmHg 88 mmHg 72 bpm 16 rpm 98.2 F 296 lbs 75 in 37.00 kg/m2 2.67 m2 98 % 12/25/2014 1:17:00 PM 130 mmHg 85 mmHg 70 bpm 18 rpm 96.5 F 277 lbs 75 in 34.6223 kg/m 2.5785 m 98 % Social History Name Description Comments smoking Never Uses seatbelts Alcohol Never Exercises regularly Current every day History of Procedures Date Ordered Description Order Status 12/25/2014 12:00 AM PMRV Drug Screen Collection Reviewed Results Summary Not available. History Of Immunizations Not available. History of Past Illness Name Date of Onset Comments indigestion Annual physical exam Mar 27 2015 1:11PM General Medical Exam, Adult Dec 25 2014 1:18PM Benign skin lesion Stable Aug 10 2016 4:14PM Payers Insurance Name Company Name Plan Name Plan Number Policy Number [place] Group Number Start Date [facility] [place] [facility] [place] Plan [id number] N/A [facility] [place] PMRV PHYS/DS PMRV PHYSDS N/A History of Encounters Visit Date Visit Type Provider 08/10/2016 Office visit SUJIT QUINTANILLA 12/25/2014 Office visit SUJIT QUINTANILLA
--- OUTSIDE RECORDS SUMMARY | 2019-12-09 12:50 | XMS REPORT ---
Author Author Rhonda ANDERSON Organization [facility] Address [address] [facility] [address] [place], [place] [address] Care Team Providers Care Parachute Inspector Name Role Phone SUJIT ANDERSON PCP [...] Cubital tunnel syndrome on right Active 017 Medication management Active 02/18/2017 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 02/18/2017 Pure hypercholesterolemia Active 09/20/2017 Vital Signs Date Time BP-Sys(mm[Hg] BP-Lluvia(mm[Hg]) HR(bpm) RR(rpm) Temp WT HT HC BMI BSA BMI Percentile O2 Sat(%) 05/13/2018 7:55:00 AM 116 mmHg 74 mmHg 105 bpm 18 rpm 98.1 F 285 lbs 75 in 35.6222 kg/m 2.6155 m 98 % 04/26/2018 8:05:00 AM 279 lbs 03/19/2018 11:46:00 AM 128 mmHg 76 mmHg 80 bpm 18 rpm 98.4 F 298 lbs 75 in 37.25 kg/m2 2.6745 m 98 % 02/07/2018 3:40:00 PM 126 mmHg [...] F 279 lbs 75 in 34.87 kg/m2 2.5878 m 96 % 08/09/2017 1:42:00 PM 132 mmHg 90 mmHg 86 bpm 16 rpm 98 F 276 lbs 74 in 35.44 kg/m2 2.56 m2 98 % 06/28/2017 7:59:00 AM 138 mmHg 76 mmHg 78 bpm 16 rpm 98.2 F 277 lbs 75 in 34.6223 kg/m 2.5785 m 99 % 04/12/2017 10:08:00 AM 134 mmHg 80 mmHg 88 bpm 16 rpm 96.7 F 273 lbs 75 in 34.12 kg/m2 2.56 m2 96 % 03/30/2017 10:19:00 AM 277 lbs 02/12/2017 2:01:00 PM 142 mmHg 84 mmHg 86 bpm 18 rpm 97 F 276 lbs 74 in 35.44 kg/m2 2.5566 m 100 % 01/29/2017 11:52:00 AM 276 lbs 01/10/2017 3:15:00 PM 122 mmHg 74 mmHg 84 bpm 18 rpm 97.4 F 280 lbs 74 in 35.95 kg/m2 2.5751 m 98 % 12/29/2016 11:49:00 AM 283 lbs 11/29/2016 11:11:00 AM 150 mmHg 80 mmHg 98 bpm 18 rpm 98.2 F 301 lbs 75 in 37.62 kg/m2 2.6879 m 100 % 08/10/2016 4:13:00 PM 145 mmHg 88 mmHg 72 bpm 16 rpm 98.2 F 296 lbs 75 in 36.9971 kg/m 2.67 m2 98 % 12/25/2014 1:17:00 PM 130 mmHg 85 mmHg 70 bpm 18 rpm 96.5 F 277 lbs 75 in 34.62 kg/m2 2.5785 m 98 % Social History Name Description Comments smoking Never Uses seatbelts Alcohol Never Exercises regularly Current every day History of Procedures Date Ordered Description Order Status 11/29/2016 12:00 AM THERAPEUTIC PROPHYLACTIC/DX INJECTION CRAIG BQ/IM Reviewed 11/29/2016 12:00 AM Decadron 8mg Injection, [facility] Medicaid Rev iewed 11/29/2016 12:00 AM Depo-Medrol 80 Mg Injection, [facility] Medicai d Reviewed 02/12/2017 12:00 AM Decadron 8mg Injection, [facility] Medicaid Rev iewed 02/12/2017 12:00 AM Depo-Medrol 80 Mg Injection, [facility] Medicai d Reviewed 02/12/2017 12:00 AM THERAPEUTIC PROPHYLACTIC/DX INJECTION CRAIG BQ/IM Reviewed 08/09/2017 12:00 AM Toradol 60 Mg Injection Reviewed 08/09/2017 12:00 AM THER/PROPH/DIAG INJ SC/IM Reviewed 12/11/2017 12:00 AM THER/PROPH/DIAG INJ SC/IM Reviewed 12/11/2017 12:00 AM Decadron 8mg Injection Reviewed 12/11/2017 12:00 AM Depo-Medrol 80mg Injection Reviewed 12/11/2017 12:00 AM B12 1000mcg Injection, [facility] Medicaid Revi ewed 02/07/2018 12:00 AM THERAPEUTIC PROPHYLACTIC/DX INJECTION CRAIG BQ/IM Reviewed 02/07/2018 12:00 AM Decadron 8mg Injection, [facility] Medicaid Rev iewed 02/07/2018 12:00 AM Depo-Medrol 80 Mg Injection, [facility] Medicai d Reviewed 12/25/2014 12:00 AM PMRV Drug Screen Collection Reviewed Results Summary Not available. History Of Immunizations Not available. History of Past Illness Name Date of Onset Comments indigestion Carpal tunnel syndrome 01/21/2017 Cubital tunnel syndrome on right 01/21/2017 Medication management 02/18/2017 Chronic midline low back pain with bilateral sciatica 2016 Pure hypercholesterolemia 09/20/2017 Annual physical exam Dec 25 2014 1:11PM [...] counseling, encounter for May 13 2018 7:56AM Payers Insurance Name Company Name Plan Name Plan Number Policy Number [place] Group Number Start Date [facility] [place] State Plan [facility] [place] Plan [id number] N/A [facility] [place] PMRV PHYS/DS PMRV PHYSDS N/A History of Encounters Visit Date Visit Type Provider 05/13/2018 Office visit SUJIT QUINTANILLA 03/19/2018 Office visit SUJIT QUINTANILLA 02/07/2018 Office visit SUJIT QUINTANILLA 12/26/2017 Office visit SUJIT QUINTANILLA 12/11/2017 Office visit SUJIT QUINTANILLA 09/20/2017 Office visit SUJIT QUINTANILLA 08/09/2017 Office visit SUJTI QUINTANILLA 06/28/2017 Office visit SUJIT QUINTANILLA 04/12/2017 Office visit SUJIT QUINTANILLA 02/12/2017 Office visit SUJIT QUINTANILLA 01/10/2017 Office visit SUJIT QUINTANILLA 11/29/2016 Office visit SUJIT QUINTANILLA 08/10/2016 Office visit SUJIT QUINTANILLA 12/25/2014 Office visit SUJIT QUINTANILLA
--- OUTSIDE RECORDS SUMMARY | 2019-12-09 12:50 | XMS REPORT ---
Author Author Rhonda ANDERSON Organization [facility] Address [address] [place], [place] [address] Care Team Providers Care Narrow Fabrics Weaver Name Role Phone SUJIT ANDERSON PCP Unavailable SUJIT ANDERSON PreferredProvider Unavailable Allergies and Adverse Reactions Name Reaction Notes No known drug allergy Plan of Treatment Not available. Medications Active Name Start Date Estimated Completion Date SIG Co mments hydrocodone-ibuprofen 7.5-200 mg oral tablet 08/03/2017 take 1 tablet by oral route every 6 hours as needed for pain not to exceed 5 tablets in 24hrs diclofenac sodium 75 mg oral tablet,delayed release (DR/EC) 08/09 take 1 tablet (75 mg) by oral route 2 times per day for 30 days Xanax 0.5 mg oral tablet 08/21/2017 09/20/2017 1/2 to 1 twice daily as needed for anxiety must last 30 days Name Start Date Expiration Date [...] oral route every 12 hours as needed Discontinued Name Start Date Discontinued Date SIG [...] breakfast Problem List Description Status Onset Carpal Tunnel Syndrome Active 01/21/2017 Cubital tunnel syndrome on right Active 017 Medication management Active 02/18/2017 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 02/18/2017 Vital Signs Date Time BP-Sys(mm[Hg] BP-Lluvia(mm[Hg]) HR(bpm) RR(rpm) Temp WT HT HC BMI BSA BMI Percentile O2 Sat(%) 08/09/2017 1:42:00 PM 132 mmHg 90 mmHg [...] rpm 97 F 276 lbs 74 in 35.4359 kg/m 2.5566 m 100 % 01/29/2017 11:52:00 AM 276 lbs 01/10/2017 3:15:00 PM 122 mmHg 74 mmHg 84 bpm 18 rpm 97.4 F 280 lbs 74 in 35.95 kg/m2 2.58 m2 98 % 12/29/2016 11:49:00 AM 283 lbs 11/29/2016 11:11:00 AM 150 mmHg 80 mmHg 98 bpm 18 rpm 98.2 F 301 lbs 75 in 37.622 kg/m 2.6879 m 100 % 08/10/2016 4:13:00 PM [...] Reviewed 11/29/2016 12:00 AM Decadron 8mg Injection, [facility] Medicaid Rev iewed 11/29/2016 12:00 AM Depo-Medrol 80 Mg Injection, [facility] Medicai d Reviewed 02/12/2017 12:00 AM Decadron 8mg Injection, [facility] Medicaid Rev iewed 02/12/2017 12:00 AM Depo-Medrol 80 Mg Injection, [facility] Medicai d Reviewed 02/12/2017 12:00 AM THERAPEUTIC PROPHYLACTIC/DX INJECTION CRAIG BQ/IM Reviewed 08/09/2017 12:00 AM Toradol 60 Mg Injection Reviewed 08/09/2017 12:00 AM THER/PROPH/DIAG INJ SC/IM Reviewed 12/25/2014 12:00 AM PMRV Drug Screen Collection Reviewed Results Summary Not available. History Of Immunizations Not available. History of Past Illness Name Date of Onset Comments indigestion Carpal Tunnel Syndrome 01/21/2017 Cubital tunnel syndrome on right 01/21/2017 Medication management 02/18/2017 Chronic midline low back pain with bilateral sciatica 2016 Annual physical exam Dec 25 2014 1:11PM [...] subsequent encounter Aug 09 2017 1 :43PM Payers Insurance Name Company Name Plan Name Plan Number Policy Number [place] Group Number [facility] [place] [facility] [place] [id number] N/A [facility] [place] PMRV PHYS/DS PMRV PHYSDS N/A History of Encounters Visit Date Visit Type Provider 08/09/2017 Office visit SUJIT QUINTANILLA 06/28/2017 Office visit SUJIT QUINTANILLA 04/12/2017 Office visit SUJIT QUINTANILLA 02/12/2017 Office visit SUJIT QUINTANILLA 01/10/2017 Office visit SUJTI QUINTANILLA 11/29/2016 Office visit SUJIT QUINTANILLA 08/10/2016 Office visit SUJIT QUINTANILLA 12/25/2014 Office visit SUJIT QUINTANILLA
--- OUTSIDE RECORDS SUMMARY | 2019-12-09 12:50 | XMS REPORT ---
Author Author Rhonda ANDERSON Organization [facility] Address [address] [place], [place] [address] Care Team Providers Care Long Term Care Administrator Name Role Phone SUJIT ANDERSON PCP SUIJT ANDERSON PreferredProvider Allergies and Adverse Reactions Name [...] 30 minutes before morning and evening meal phentermine 37.5 mg oral tablet 10/24/2017 take 1 tablet (37.5 mg) by oral route once daily before breakfast Xanax 0.5 mg oral tablet 12/11/2017 01/10/2018 1/2 to 1 twice daily as needed for anxiety must last 30 days cetirizine 10 mg oral tablet 12/12/2017 03/12/2018 piper e 1 tablet (10 mg) by oral route once daily for 30 days nitroglycerin 0.4 mg sublingual tablet, sublingual 12/26/2017 [...] intramuscular route once as needed for anaphylaxis Name Start Date Expiration Date SIG Comments [...] HC BMI BSA BMI Percentile O2 Sat(%) 12/26/2017 2:11:00 PM 124 mmHg 88 mmHg 86 bpm 18 rpm 98.4 F 286 lbs 74 in 36.72 kg/m2 2.60 m2 98 % 12/11/2017 1:02:00 PM 138 mmHg 72 mmHg 88 bpm 18 rpm 98.2 F 288 lbs 74 in 36.9766 kg/m 2.6116 m 100 % 10/24/2017 1:44:00 PM 275 lbs [...] rpm 97.4 F 280 lbs 74 in 35.9495 kg/m 2.5751 m 98 % 12/29/2016 11:49:00 AM [...] Reviewed 11/29/2016 12:00 AM Decadron 8mg Injection, [facility] Medicaid Rev iewed 11/29/2016 12:00 AM Depo-Medrol 80 Mg Injection, [facility] Medicai d Reviewed 02/12/2017 12:00 AM Decadron 8mg Injection, [facility] Medicaid Rev iewed 02/12/2017 12:00 AM Depo-Medrol 80 Mg Injection, [facility] Medicai d Reviewed 02/12/2017 12:00 AM THERAPEUTIC PROPHYLACTIC/DX INJECTION CRAIG BQ/IM Reviewed 08/09/2017 12:00 AM Toradol 60 Mg Injection Reviewed 08/09/2017 12:00 AM THER/PROPH/DIAG INJ SC/IM Reviewed 12/11/2017 12:00 AM THER/PROPH/DIAG INJ SC/IM Reviewed 12/11/2017 12:00 AM Decadron 8mg Injection Reviewed 12/11/2017 12:00 AM Depo-Medrol 80mg Injection Reviewed 12/11/2017 12:00 AM B12 1000mcg Injection, [facility] Medicaid Revi ewed 12/25/2014 12:00 AM PMRV Drug Screen Collection [...] 2:11PM Medication management Dec 26 2017 2:11PM Payers Insurance Name Company Name Plan Name Plan Number Policy Number Nash cy Group Number [facility] [place] [facility] - [facility] [place] Plan [id number] N/A Formerly [facility] on Assisted [place] PMRV PHYS/DS PMRV PHYSDS N/A History of Encounters Visit Date Visit Type Provider 12/26/2017 Office visit SUJIT QUINTANILLA 12/11/2017 Office visit SUJIT QUINTANILLA 09/20/2017 Office visit SUJIT QUINTANILLA 08/09/2017 Office visit SUJIT QUINTANILLA 06/28/2017 Office visit SUJIT QUINTANILLA 04/12/2017 Office visit SUJIT QUINTANILLA 02/12/2017 Office visit SUJIT QUINTANILLA 01/10/2017 Office visit SUJIT QUINTANILLA 11/29/2016 Office visit SUJIT QUINTANILLA 08/10/2016 Office visit SUJIT QUITNANILLA 12/25/2014 Office visit SUJIT QUINTANILLA
--- OUTSIDE RECORDS SUMMARY | 2019-12-09 12:50 | XMS REPORT ---
Author Author Rhonda ANDERSON Organization [facility] ou Address [address] [facility] [address] [place], [place] [address] Care Team Providers Care Section Housekeeper Name Role Phone SUJIT ANDERSON PCP Unavailable SUJIT ANDERSON PreferredProvider Unavailable Allergies and Adverse Reactions Name Reaction Notes No known drug allergy Plan of Treatment Not available. Medications Active Name Start Date Estimated Completion Date SIG Co mments hydrocodone-ibuprofen 7.5-200 mg oral tablet 04/12/2017 take 1 tablet by oral route every 6 hours as needed for pain not to exceed 5 tablets in 24hrs naproxen sodium 550 mg oral tablet 04/12/2017 take 1 tablet (550 mg) by oral route every 12 hours as needed Name Start Date Expiration Date SIG Comments [...] 7 take as directed for 5 days Discontinued Name Start Date Discontinued Date [...] HC BMI BSA BMI Percentile O2 Sat(%) 04/12/2017 10:08:00 AM 134 mmHg 80 mmHg [...] Reviewed 11/29/2016 12:00 AM Decadron 8mg Injection, [facility] Medicaid Rev iewed 11/29/2016 12:00 AM Depo-Medrol 80 Mg Injection, [facility] Medicai d Reviewed 02/12/2017 12:00 AM Decadron 8mg Injection, [facility] Medicaid Rev iewed 02/12/2017 12:00 AM Depo-Medrol 80 Mg Injection, [facility] Medicai d Reviewed 02/12/2017 12:00 AM THERAPEUTIC PROPHYLACTIC/DX INJECTION CRAIG BQ/IM Reviewed 12/25/2014 12:00 AM PMRV Drug Screen [...] right, initial encounter Apr 12 2017 10:09AM Payers Insurance Name Company Name Plan Name Plan Number Policy Number Nash cy Group Number Start Date [employer] - [facility] - [place] State Plan [facility] [place] State Plan [id number] N/A [facility] on Care Home [place] Maria PMRV PHYS/DS PMRV PHYSDS N/A History of Encounters Visit Date Visit Type Provider 04/12/2017 Office visit SUJIT QUINTANILLA 02/12/2017 Office visit SUJIT QUINTANILLA 01/10/2017 Office visit SUJIT QUINTANILLA 11/29/2016 Office visit SUJIT QUINTANILLA 08/10/2016 Office visit SUJIT QUINTANILLA 12/25/2014 Office visit SUJIT QUINTANILLA
--- OUTSIDE RECORDS SUMMARY | 2019-12-09 12:50 | XMS REPORT ---
Author Author Rhonda ANDERSON Organization [facility] Address [address] [place], [place] [address] Care Team Providers Care Business Taxes Specialist Name Role Phone SUJIT ANDERSON PCP SUJIT [...] 3 times per day for 14 days Name Start Date Expiration Date SIG [...] HC BMI BSA BMI Percentile O2 Sat(%) 05/27/2018 10:48:00 AM 142 mmHg 82 mmHg [...] rpm 98.4 F 298 lbs 75 in 37.2471 kg/m 2.6745 m 98 % 02/07/2018 3:40:00 PM [...] rpm 96.7 F 279 lbs 75 in 34.8723 kg/m 2.5878 m 96 % 08/09/2017 1:42:00 PM [...] 12:00 AM Decadron 8mg Injection, [facility] Medicaid Rev iewed 11/29/2016 12:00 AM Depo-Medrol 80 Mg Injection, [facility] Medicai d Reviewed 02/12/2017 12:00 AM Decadron 8mg Injection, [facility] Medicaid Rev iewed 02/12/2017 12:00 AM Depo-Medrol 80 Mg Injection, [facility] Medicai d Reviewed 02/12/2017 12:00 AM THERAPEUTIC PROPHYLACTIC/DX INJECTION CRAIG BQ/IM Reviewed 08/09/2017 12:00 AM Toradol 60 Mg Injection Reviewed 08/09/2017 12:00 AM THER/PROPH/DIAG INJ SC/IM Reviewed 12/11/2017 12:00 AM THER/PROPH/DIAG INJ SC/IM Reviewed 12/11/2017 12:00 AM Decadron 8mg Injection Reviewed 12/11/2017 12:00 AM Depo-Medrol 80mg Injection Reviewed 12/11/2017 12:00 AM B12 1000mcg Injection, [facility] Medicaid Revi ewed 02/07/2018 12:00 AM THERAPEUTIC PROPHYLACTIC/DX INJECTION CRAIG BQ/IM Reviewed 02/07/2018 12:00 AM Decadron 8mg Injection, [facility] Medicaid Rev iewed 02/07/2018 12:00 AM Depo-Medrol 80 Mg Injection, [facility] Medicai d Reviewed 12/25/2014 12:00 AM PMRV [...] 10:49AM Medication management May 27 2018 10:49AM Payers Insurance Name Company Name Plan Name Plan Number Policy Number Nash cy Group Number [facility] [place] [facility] [place] State Plan [id number] N/A Formerly [facility] on Assisted [place] Maria PMRV PHYS/DS PMRV PHYSDS N/A History of Encounters Visit Date Visit Type Provider 05/27/2018 Office visit SUJIT QUINTANILLA 05/13/2018 Office visit SUJIT QUINTANILLA 03/19/2018 Office visit SUJIT QUINTANILLA 02/07/2018 Office visit SUJIT QUINTANILLA 12/26/2017 Office visit SUJIT QUINTANILLA 12/11/2017 Office visit SUJIT QUINTANILLA 09/20/2017 Office visit SUJIT QUINTANILLA 08/09/2017 Office visit SUJIT ANDERSON PA 06/28/2017 Office visit SUJIT ANDERSON PA 04/12/2017 Office visit SUJIT ANDERSON PA 02/12/2017 Office visit SUJIT ANDERSON PA 01/10/2017 Office visit SUJIT ANDERSON PA 11/29/2016 Office visit SUJIT ANDERSON PA 08/10/2016 Office visit SUJIT ANDERSON PA 12/25/2014 Office visit SUJIT QUINTANILLA
--- OUTSIDE RECORDS SUMMARY | 2019-12-09 12:50 | XMS REPORT ---
Author Author Rhonda ANDERSON Organization [facility] ou Address [address] [place], [place] [address] Care Team Providers Care Utilities And Maintenance Supervisor Name Role Phone SUJIT ANDERSON PCP SUJIT ANDERSON PreferredProvider Allergies and Adverse Reactions Name Reaction Notes No known drug allergy Plan of Treatment Planned Activity Comments Planned Date Planned Time Plan/Goal Injection,Subcutaneous/Intramuscul, [facility] Medicaid 2017 12:00 AM Medications Active Name Start Date [...] by oral route once daily before breakfast cetirizine 10 mg oral tablet 12/12/2017 03/12/2018 [...] intramuscular route once as needed for anaphylaxis Xanax 0.5 mg oral tablet 2018 05/01/2018 1/2 to 1 twice daily as needed [...] HC BMI BSA BMI Percentile O2 Sat(%) 02/07/2018 3:40:00 PM 126 mmHg 70 mmHg [...] Reviewed 11/29/2016 12:00 AM Decadron 8mg Injection, [facility] Medicaid Rev iewed 11/29/2016 12:00 AM Depo-Medrol 80 Mg Injection, [facility] Medicai d Reviewed 02/12/2017 12:00 AM Decadron 8mg Injection, [facility] Medicaid Rev iewed 02/12/2017 12:00 AM Depo-Medrol 80 Mg Injection, [facility] Medicai d Reviewed 02/12/2017 12:00 AM THERAPEUTIC PROPHYLACTIC/DX INJECTION CRAIG BQ/IM Reviewed 08/09/2017 12:00 AM Toradol 60 Mg Injection Reviewed 08/09/2017 12:00 AM THER/PROPH/DIAG INJ SC/IM Reviewed 12/11/2017 12:00 AM THER/PROPH/DIAG INJ SC/IM Reviewed 12/11/2017 12:00 AM Decadron 8mg Injection Reviewed 12/11/2017 12:00 AM Depo-Medrol 80mg Injection Reviewed 12/11/2017 12:00 AM B12 1000mcg Injection, [facility] Medicaid Revi ewed 12/25/2014 12:00 AM PMRV [...] Moderate Acute Labyrinthitis Feb 07 2018 3:41PM Payers Insurance Name Company Name Plan Name Plan Number Policy Number Nash cy Group Number Start Date [employer] - [facility] [place] [facility] [place] [id number] N/A [facility] [place] PMRV PHYS/DS PMRV PHYSDS N/A History of Encounters Visit Date Visit Type Provider 02/07/2018 Office visit SUJIT QUINTANILLA 12/26/2017 Office [...]
--- OUTSIDE RECORDS SUMMARY | 2019-12-09 12:51 | XMS REPORT | CCD ---
Author Author JOSSY TAYLOR Organization Unknown Address [address] [facility] [address] [facility] [facility] [address] [place], [place] [phone] Care Team Providers Care Take Down Inspector Name Role Phone DEMETRIA SITA ZAMAN MD Attphys DEMETRIA SITA ZAMAN MD Prisurg Vital Signs Unknown. Allergies Allergy Code Allergy Type Reaction Status ZOLOFT 96640 Drug allergy (disorder) Active Procedures Unknown. History of Immunizations Unknown. Problems Unknown. Results CBC W/ AUTO DIFF (RFLX MAN DIFF IF IND) Test Name Code Test Result Test Units Kathie t Date/Time WBC 97515-2 5.8000 TH/CMM 03/23/2014 12: 40 RBC 789-8 5.3200 ML/CMM 03/23/2014 12:4 0 HGB 718-7 16.1000 G/DL 03/23/2014 12: 40 HCT 4544-3 47.2000 % 03/23/2014 12: 40 MCV 89.0000 FL 03/23/2014 12: 40 MCH 30.3000 PG 03/23/2014 12: 40 MCHC 34.1000 G/DL 03/23/2014 12: 40 RDW SD 41.0000 FL 03/23/2014 12: 40 RDW CV 12.7000 % 03/23/2014 12: 40 MPV 9.4000 FL 03/23/2014 12:4 0 PLT 777-3 182.0000 TH/CMM 03/23/2014 12 :40 NRBC# 0.0000 TH/CMM 03/23/2014 12:4 0 NRBC% 0.0000 /100WBC 03/23/2014 12: 40 %NEUT 50.5000 % 03/23/2014 12: 40 %LYMP 37.7000 % 03/23/2014 12: 40 %MONO 9.7000 % 03/23/2014 12:4 0 %EOS 1.9000 % 03/23/2014 12:4 0 %BASO 0.2000 % 03/23/2014 12:4 0 #NEUT 2.9300 TH/CMM 03/23/2014 12:4 0 #LYMP 2.1800 TH/CMM 03/23/2014 12:4 0 #MONO 0.5600 TH/CMM 03/23/2014 12:4 0 #EOS 0.1100 TH/CMM 03/23/2014 12:4 0 #BASO 0.0100 TH/CMM 03/23/2014 12:4 0 MANUAL DIFF NOT IND N/A 4 12:40 Medications Unknown. Medications Administered Unknown. Encounters Encounter Diagnosis Diagnosis Code Start Date ACUTE BRONCHITIS 4660 03/23/2014 Social History Smoking Status Code Start Date End Date Never smoker [id number] Patient Decision Aids Unknown. Discharge Instructions You were admitted to [facility] on 03/23/2014 with a principle diagnosis of ACUTE BRONCHITIS. You were discharged from [facility] on 03/23/2014. Should you have any questions prior to discharge, please contact a member of your healthcare team. If you have left the hospital and have any questions, please contact your primary care physician. Chief Complaint and Reason For Visit Chief Complaint Date of Onset COUGH CONGESTION Function Status Unknown. Referral/Transition of Care Unknown.
--- OUTSIDE RECORDS SUMMARY | 2019-12-09 12:51 | XMS REPORT ---
Author Rhonda Fraga Organization [employer] Address Unknown Phone Unavailable Care Team Providers Care Forensic Economist Name Role Phone DORIS KENNEDY CP Unavailable Allergies, Adverse Reactions, Alerts Substance Reaction Event Type N.K.D.A. Info Not Available Non Drug Allergy Problems Problem Type Condition Code Onset Dates Condition Statu s Assessment Encounter for dental examination Z01.20 Active Problem Encounter for dental examination Z01.20 Active Medications No Known Medications Procedures Procedure Coding System Code Date INTRAORL-PERIAPICAL 1 FILM 94701 CPT-4 D0220 Sep 01, 2015 INTRAORL-PERIAPICAL EA ADD FILM CPT-4 D0230 Sep 01, 2015 COMP ORAL EVALUATION - NEW/EST PT CPT-4 D0150 Sep 01, 2015 BITEWINGS - FOUR FILMS CPT-4 D0274 Sep 01, 015 INTRAORL-PERIAPICAL EA ADD FILM CPT-4 D0230 Sep 01, 2015 PANORAMIC FILM SEE ALSO CODE 81171 CPT-4 D0330 Sep 01, 2015 Vital Signs Date/Time: Sep 01, 2015 Blood Pressure Diastolic 71 mmHg Blood Pressure Systolic 121 mmHg Cardiac Monitoring Heart Rate 85 bpm Results No Known Results Summary Purpose [employer] Submission
--- OUTSIDE RECORDS SUMMARY | 2019-12-09 12:51 | XMS REPORT ---
Author Author Rhonda ANDERSON Organization [facility] Address [address] [place], [place] [address] Care Team Providers Care Paving Machine Operator Name Role Phone SUJIT ANDERSON PCP Unavailable SUJIT ANDERSON PreferredProvider Unavailable Allergies and Adverse Reactions Name Reaction Notes No known drug allergy Plan of Treatment Not available. Medications Active Name Start Date Estimated Completion Date SIG Co mments naproxen sodium 550 mg oral tablet 01/10/2017 take 1 tablet (550 mg) by oral route every 12 hours as needed phentermine 37.5 mg oral tablet 01/29/2017 take 1 tablet (37.5 mg) by oral route once daily before breakfast hydrocodone-ibuprofen 7.5-200 mg oral tablet 02/12/2017 take 1 tablet by oral route every [...] Medrol (Oscar) 4 mg oral tablets,dose pack 01/10/2017 01/16/20 17 take as directed for 5 days Discontinued Name Start Date Discontinued Date SIG Comments Belviq 10 mg oral tablet 12/04/2016 take 1 tablet (10 mg) by oral route 2 times per day omeprazole 40 mg oral capsule,delayed release(DR/EC) penicillin V potassium 500 mg oral tablet 01/25/2016 12/05/19 17 take 1 tablet (500 mg) by oral route 3 times per day Problem List Description Status Onset Carpal Tunnel Syndrome Active 01/21/2017 Cubital tunnel syndrome on right Active 017 Medication management Active 02/18/2017 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 02/18/2017 Vital Signs Date Time BP-Sys(mm[Hg] BP-Lluvia(mm[Hg]) HR(bpm) RR(rpm) Temp WT HT HC BMI BSA BMI Percentile O2 Sat(%) 02/12/2017 2:01:00 PM 142 mmHg 84 mmHg [...] Reviewed 11/29/2016 12:00 AM Decadron 8mg Injection, [facility] Medicaid Rev iewed 11/29/2016 12:00 AM Depo-Medrol 80 Mg Injection, [facility] Medicai d Reviewed 02/12/2017 12:00 AM Decadron 8mg Injection, [facility] Medicaid Rev iewed 02/12/2017 12:00 AM Depo-Medrol 80 Mg Injection, [facility] Medicai d Reviewed 02/12/2017 12:00 AM [...] 2:03PM Medication management Feb 12 2017 2:03PM Payers Insurance Name Company Name Plan Name Plan Number Policy Number Nash cy Group Number Start Date [facility] - [facility] [place] [facility] [place] [id number] N/A [facility] on [facility] [place] PMRV PHYS/DS PMRV PHYSDS N/A History of Encounters Visit Date Visit Type Provider 02/12/2017 Office visit SUJIT QUINTANILLA 01/10/2017 Office visit SUJIT QUINTANILLA 11/29/2016 Office visit SUJIT QUINTANILLA 08/10/2016 Office visit SUJIT QUINTANILLA 12/25/2014 Office visit SUJIT QUINTANILLA
--- OUTSIDE RECORDS SUMMARY | 2019-12-09 12:51 | XMS REPORT ---
Author Author Rhonda ANDERSON Organization [facility] Address [address] [facility] [address] [place], [place] [address] Care Team Providers Care Wrecker Operator Name Role Phone SUJIT ANDERSON PCP Unavailable Allergies and Adverse Reactions Name Reaction Notes No known drug allergy Plan of Treatment Planned Activity Comments Planned Date Planned Time Plan/Goal Injection,Subcutaneous/Intramuscul, [facility] Medicaid 017 12:00 AM Medications Name Start Date Expiration Date SIG Comments Zithromax Z-Oscar 250 mg oral tablet 09/29/2015 10/04/2015 take 2 tablets (500 mg) by oral route once daily for 1 day then 1 tablet (250 mg) by oral route once daily for 4 days Medrol (Oscar) 4 mg oral tablets,dose pack 09/29/2015 6 take as directed for 5 days Discontinued Name Start Date Discontinued Date SIG Comments Belviq 10 mg oral tablet 12/04/2016 take 1 tablet (10 mg) by oral route 2 times per day omeprazole 40 mg oral capsule,delayed release(DR/EC) penicillin V potassium 500 mg oral tablet 01/25/2016 12/05/19 17 take 1 tablet (500 mg) by oral route 3 times per day Problem List Not available. Vital Signs Date Time BP-Sys(mm[Hg] BP-Lluvia(mm[Hg]) HR(bpm) RR(rpm) Temp WT HT HC BMI BSA BMI Percentile O2 Sat(%) 11/29/2016 11:11:00 AM 150 mmHg 80 mmHg [...] of Onset Comments indigestion Annual physical exam Dec 25 2014 1:11PM General Medical Exam, Adult Dec 25 2014 1:18PM Benign skin lesion Stable Aug 10 2016 4:14PM Eustachian tube dysfunction, bilateral Nov 29 2016 11:12AM Mild Acute Purulent postnasal drainage Nov 29 2016 11:12AM Moderate Acute Sinus pressure Nov 29 2016 11:12AM Payers Insurance Name Company Name Plan Name Plan Number Policy Number Nash cy Group Number [facility] [place] [facility] [place] [id number] N/A [facility] on Shelter [place] PMRV PHYS/DS PMRV PHYSDS N/A History of Encounters Visit Date Visit Type Provider 11/29/2016 Office visit SUJIT QUINTANILLA 08/10/2016 Office visit SUJIT QUINTANILLA 12/25/2014 Office visit SUJIT QUINTANILLA
--- OUTSIDE RECORDS SUMMARY | 2019-12-09 12:51 | XMS REPORT ---
Author Author Rhonda ANDERSON Organization [facility] Address [address] [place], [place] [address] Care Team Providers Care Hematology Oncology Consultant Name Role Phone SUJIT ANDERSON PCP Unavailable SUJIT ANDERSON PreferredProvider Unavailable Allergies and Adverse Reactions Name Reaction Notes No known drug allergy Plan of Treatment Not available. Medications Active Name Start Date Estimated Completion Date SIG Co mments phentermine 37.5 mg oral tablet 12/29/2016 take 1 tablet (37.5 mg) by oral route once daily before breakfast naproxen sodium 550 mg oral tablet 01/10/2017 [...] Cubital tunnel syndrome on right Active 017 Vital Signs Date Time BP-Sys(mm[Hg] BP-Lluvia(mm[Hg]) HR(bpm) RR(rpm) Temp WT HT HC BMI BSA BMI Percentile O2 Sat(%) 01/10/2017 3:15:00 PM 122 mmHg 74 mmHg [...] [facility] Medicai d Reviewed 12/25/2014 12:00 AM PMRV Drug Screen Collection Reviewed Results Summary Not available. History Of Immunizations Not available. History of Past Illness Name Date of Onset Comments indigestion Carpal Tunnel Syndrome 01/21/2017 Cubital tunnel syndrome on right 01/21/2017 Annual physical exam Dec 25 2014 1:11PM [...] syndrome on right Jan 10 2017 3:15PM Payers Insurance Name Company Name Plan Name Plan Number Policy Number Nash cy Group Number Start Date [employer] - [facility] [place] [facility] [place] [id number] N/A [place] [facility] on Alf Rosa Maria PMRV PHYS/DS PMRV PHYSDS N/A History of Encounters Visit Date Visit Type Provider 01/10/2017 Office visit SUJIT QUINTANILLA 11/29/2016 Office visit SUJIT QUINTANILLA 08/10/2016 Office visit SUJIT QUINTANILLA 12/25/2014 Office visit SUJIT QUINTANILLA
--- OUTSIDE RECORDS SUMMARY | 2019-12-09 12:51 | XMS REPORT ---
Author Author Rhonda ANDERSON Organization [facility] Address [address] [place], [place] [address] Care Team Providers Care Chain Maker Machine Name Role Phone SUJIT ANDERSON PCP Unavailable [...] oral route every 12 hours as needed Xanax 0.5 mg oral tablet 06/28/2017 07/28/2017 1/2 to 1 twice daily as needed [...] HC BMI BSA BMI Percentile O2 Sat(%) 06/28/2017 7:59:00 AM 138 mmHg 76 mmHg [...] 11/29/2016 12:00 AM Depo-Medrol 80 Mg Injection, [facility] Medicai d Reviewed 02/12/2017 12:00 AM Decadron 8mg Injection, [facility] Medicaid Rev iewed 02/12/2017 12:00 AM Depo-Medrol 80 Mg Injection, [facility] Medicai d Reviewed 02/12/2017 12:00 AM THERAPEUTIC [...] Acute stress reaction Jun 28 2017 8:00AM Payers Insurance Name Company Name Plan Name Plan Number Policy Number Nash cy Group Number Start Date [employer] - [facility] [place] [facility] - [facility] [place] State Plan [id number] N/A [facility] on Long-Term Rosa Maria PMRV PHYS/DS PMRV PHYSDS N/A History of Encounters Visit Date Visit Type Provider 06/28/2017 Office visit SUJIT QUINTANILLA 04/12/2017 Office visit SUJIT QUINTANILLA 02/12/2017 Office visit SUJIT QUINTANILLA 01/10/2017 Office visit SUJIT QUINTANILLA 11/29/2016 Office visit SUJIT QUINTANILLA 08/10/2016 Office visit SUJIT QUINTANILLA 12/25/2014 Office visit SUJIT QUINTANILLA
--- OUTSIDE RECORDS SUMMARY | 2019-12-09 12:51 | XMS REPORT ---
Author Author Rhonda ANDERSON Organization [facility] Address [address] [place], [place] [id number] Care Team Providers Care Textile Slitting Machine Operator Name Role Phone SUJIT ANDERSON [...] by oral route once daily before breakfast nitroglycerin 0.4 mg sublingual tablet, sublingual 12/26/2017 [...] 30 days hydrocodone-ibuprofen 7.5-200 mg oral tablet 03/19/2018 take 1 tablet by oral route every 6 hours as needed for pain not to exceed 5 tablets in 24hrs Pristiq 50 mg oral tablet extended release 24 hr 03/19/2018 take 1 tablet (50 mg) by oral route once daily Name Start Date Expiration Date SIG Comments [...] HC BMI BSA BMI Percentile O2 Sat(%) 03/19/2018 11:46:00 AM 128 mmHg 76 mmHg [...] Reviewed 11/29/2016 12:00 AM Decadron 8mg Injection, [facility] Medicaid Rev iewed 11/29/2016 12:00 AM Depo-Medrol 80 Mg Injection, [facility] Medicai d Reviewed 02/12/2017 12:00 AM Decadron 8mg Injection, [facility] Medicaid Rev iewed 02/12/2017 12:00 AM Depo-Medrol 80 Mg Injection, [facility] Medicai d Reviewed 02/12/2017 12:00 AM THERAPEUTIC PROPHYLACTIC/DX INJECTION CRAIG BQ/IM Reviewed 08/09/2017 12:00 AM Toradol 60 Mg Injection Reviewed 08/09/2017 12:00 AM THER/PROPH/DIAG INJ SC/IM Reviewed 12/11/2017 12:00 AM THER/PROPH/DIAG INJ SC/IM Reviewed 12/11/2017 12:00 AM Decadron 8mg Injection Reviewed 12/11/2017 12:00 AM Depo-Medrol 80mg Injection Reviewed 12/11/2017 12:00 AM B12 1000mcg Injection, [facility] Medicaid Revi ewed 02/07/2018 12:00 AM THERAPEUTIC PROPHYLACTIC/DX INJECTION CRAIG BQ/IM Reviewed 02/07/2018 12:00 AM Decadron 8mg Injection, [facility] Medicaid Rev iewed 02/07/2018 12:00 AM Depo-Medrol 80 Mg Injection, [facility] Medicai d Reviewed 12/25/2014 12:00 AM [...] Other chronic pain Mar 19 2018 11:47AM Payers Insurance Name Company Name Plan Name Plan Number Policy Number [place] Group Number Start Date [employer] - [facility] [place] [facility] [place] State Plan [id number] N/A [facility] [place] [facility] on [facility] [place] PMRV PHYS/DS PMRV PHYSDS N/A History of Encounters Visit Date Visit Type Provider 03/19/2018 Office visit SUJIT QUINTANILLA 02/07/2018 Office [...]
--- OUTSIDE RECORDS SUMMARY | 2019-12-09 12:51 | XMS REPORT ---
Author Author Rhonda ANDERSON Organization [facility] Address [address] [place], [place] [id number] Care Team Providers Care Copper Flotation Operator Name Role Phone SUJIT ANDERSON PCP [...] 2 times per day for 30 days Name Start Date Expiration [...] as needed Xanax 0.5 mg oral tablet 08/21/2017 09/20/2017 1/2 to 1 twice daily as needed for anxiety must last 30 days Discontinued Name Start Date Discontinued [...] HC BMI BSA BMI Percentile O2 Sat(%) 09/20/2017 3:01:00 PM 124 mmHg 82 mmHg [...] Reviewed 11/29/2016 12:00 AM Decadron 8mg Injection, [facility] Medicaid Rev iewed 11/29/2016 12:00 AM Depo-Medrol 80 Mg Injection, [facility] Medicai d Reviewed 02/12/2017 12:00 AM Decadron 8mg Injection, [facility] Medicaid Rev iewed 02/12/2017 12:00 AM Depo-Medrol 80 Mg Injection, [facility] Medicai d Reviewed 02/12/2017 12:00 AM [...] 3:01PM Pure hypercholesterolemia Sep 20 2017 3:01PM Payers Insurance Name Company Name Plan Name Plan Number Policy Number Nash cy Group Number Start Date [employer] - [facility] - [place] State [place] [facility] - [facility] [place] State Plan [id number] N/A [facility] [place] PMRV PHYS/DS PMRV PHYSDS N/A History of Encounters Visit Date Visit Type Provider 09/20/2017 Office visit SUJIT QUINTANILLA 08/09/2017 Office visit SUJIT QUINTANILLA 06/28/2017 Office visit SUJIT QUINTANILLA 04/12/2017 Office visit SUJIT QUINTANILLA 02/12/2017 Office visit SUJIT QUINTANILLA 01/10/2017 Office visit SUJIT QUINTANILLA 11/29/2016 Office visit SUJIT QUINTANILLA 08/10/2016 Office visit SUJIT QUINTANILLA 12/25/2014 Office visit SUJIT QUINTANILLA
--- OUTSIDE RECORDS SUMMARY | 2019-12-09 12:51 | XMS REPORT ---
Author Author Rhonda ANDERSON Organization [facility] Address [address] [place], [place] [id number] Care Team Providers Care Director Case Name Role Phone SUJIT ANDERSON PCP SUJIT ANDERSON PreferredProvider Allergies and Adverse Reactions Name Reaction Notes No known drug allergy Plan of Treatment Planned Activity Comments Planned Date Planned Time Plan/Goal Injection, Subcutaneous/IM 12/11/2017 12:00 AM Medications Active Name Start Date [...] oral route once daily for 30 days Name Start Date Expiration [...] HC BMI BSA BMI Percentile O2 Sat(%) 12/11/2017 1:02:00 PM 138 mmHg 72 mmHg [...] Reviewed 11/29/2016 12:00 AM Decadron 8mg Injection, [facility] Medicaid Rev iewed 11/29/2016 12:00 AM Depo-Medrol 80 Mg Injection, [facility] Medicai d Reviewed 02/12/2017 12:00 AM Decadron 8mg Injection, [facility] Medicaid Rev iewed 02/12/2017 12:00 AM Depo-Medrol 80 Mg Injection, [facility] Medicai d Reviewed 02/12/2017 12:00 AM THERAPEUTIC PROPHYLACTIC/DX INJECTION CRAIG BQ/IM Reviewed 08/09/2017 12:00 AM Toradol 60 Mg Injection Reviewed 08/09/2017 12:00 AM THER/PROPH/DIAG INJ SC/IM Reviewed 12/11/2017 12:00 AM Decadron 8mg Injection Reviewed 12/11/2017 12:00 AM Depo-Medrol 80mg Injection Reviewed 12/25/2014 12:00 AM PMRV Drug Screen [...] syndrome, right Worsening Dec 11 2017 1:02PM Payers Insurance Name Company Name Plan Name Plan Number Policy Number [place] cy Group Number Start Date [employer] - [facility] [place] [facility] [place] State [place] [id number] N/A [facility] on [facility] [place] PMRV PHYS/DS PMRV PHYSDS N/A History of Encounters Visit Date Visit Type Provider 12/11/2017 Office visit SUJIT QUINTANILLA 09/20/2017 Office visit SUJIT QUINTANILLA 08/09/2017 Office visit SUJIT QUINTANILLA 06/28/2017 Office visit SUJIT QUINTANILLA 04/12/2017 Office visit SUJIT QUINTANILLA 02/12/2017 Office visit SUJIT QUINTANILLA 01/10/2017 Office visit SUJIT QUINTANILLA 11/29/2016 Office visit SUJIT QUINTANILLA 08/10/2016 Office visit SUJIT QUINTANILLA 12/25/2014 Office visit SUJIT QUINTANILLA
--- OUTSIDE RECORDS SUMMARY | 2019-12-09 12:51 | XMS REPORT ---
Author Author Rhonda ANDERSON Organization [facility] Address [address] [place], [place] [id number] Care Team Providers Care Environmental Compliance Specialist Name Role Phone SUJIT ANDERSON PCP [...] Reviewed 11/29/2016 12:00 AM Decadron 8mg Injection, [facility] Medicaid Rev iewed 11/29/2016 12:00 AM Depo-Medrol 80 Mg Injection, [facility] Medicai d Reviewed 02/12/2017 12:00 AM Decadron 8mg Injection, [facility] Medicaid Rev iewed 02/12/2017 12:00 AM Depo-Medrol 80 Mg Injection, [facility] Medicai d Reviewed 02/12/2017 12:00 AM [...] Number Nash cy Group Number Start Date [facility] - [facility] [place] [facility] [place] State Plan [id number] N/A [facility] on [facility] [place] PMRV PHYS/DS [...]
--- OUTSIDE RECORDS SUMMARY | 2019-12-09 12:52 | XMS REPORT | Continuity of Care Document ---
Author Organization Unknown Address Unknown Phone Unavailable Allergies Active Description Code Type Severity Reaction Onset Reported/Identified Relationship to Patient Clinical Status Yes ibuprofen Drug N/A N/A Yes Zoloft Drug N/A N/A Yes ibuprofen Drug N/A N/A Yes Zoloft Drug N/A N/A Yes No Known Drug Allergies [id number] Drug Allergy Unknown N/A 12/05/2019 Medications Medication Packaging Start Date St op Date Route Dosage Sig desvenlafaxine 0 02/05/2019 05/15/2019 PO 50 mg / 1 tab albuterol 2018 INH ProAir HFA 90 mcg/inh inhalation aerosol cobicistat/elvitegravir/emtricitabine/teno fov 02/05/2019 02/06/2019 PO Genvoy a oral tablet montelukast 05/201902/06/2019 PO 10 mg / 1 tab gemfibrozil 0 05/201902/06/2019 PO 600 mg / 1 tab fluticasone nasal 02/05/2019 Nasal Flonase 50 mcg/inh nasal spray loratadine 02/0502/06/2019 PO 10 mg / 1 tab phentermine 06/201905/15/2019 PO 37.5 mg / 1 tab ALPRAZolam 02/06 PO 0.5 mg / 1 tab diclofenac 02/06 PO 75 mg / 1 tab emtricitabine-tenofovir 02/06/2019 PO Descovy 200 mg-25 mg oral tablet hyoscyamine 06/2019 PO 0.125 mg / 1 tab dolutegravir 06/2019 PO 50 mg / 1 tab ALPRAZolam 02/0607/30/2019 PO 0.5 mg / 1 tab albuterol 2018 INH 90 mcg / 1 puff emtricitabine-tenofovir 02/06/2019 02/06/2019 PO Descovy 200 mg-25 m g oral tablet dolutegravir 06/2019 PO 50 mg / 1 tab cetirizine 02/06 PO 10 mg / 1 tab tetanus/diphth/pertuss (Tdap) adult/adol 02/06/2019 02/06/2019 IM Boostr ix (Tdap) desvenlafaxine 0 05/15/2019 PO 100 mg / 1 tab gemfibrozil 05/01 PO 600 mg / 1 tab busPIRone 2018 PO 10 mg / 1 tab bictegravir/emtricitabine/tenofovir 05/15/2019 11/26/2019 PO Biktarvy oral tabl et ALPRAZolam 07/3009/01/2019 ALPRAZolam 0.5 mg oral tablet amphetamine-dextroamphetamine 08/20/2019 Adderall 15 mg oral tablet testosterone IM 200 mg / 1 mL influenza virus vaccine, inactivated 08/20/2019 08/20/2019 IM Flucel vax PF Quadrivalent ALPRAZolam 09/0110/02/2019 ALPRAZolam 0.5 mg oral tablet ALPRAZolam 10/0210/30/2019 ALPRAZolam 0.5 mg oral tablet ALPRAZolam 10/3012/01/2019 ALPRAZolam 0.5 mg oral tablet bictegravir/emtricitabine/tenofovir 11/26/2019 Biktarvy oral tablet ALPRAZolam 11/30 ALPRAZolam 0.5 mg oral tablet Problems Date Dx Coded Attending Type Code Diagnosis Diagnosed By 02/06/2019 Izzy Maher Final B20 Human immunodeficiency virus [HIV] disease 02/06/2019 Izzy Maher Final Z79.899 Other group home (current) drug therapy 05/15/2019 Izzy Maher Final B20 Human immunodeficiency virus [HIV] disease 05/15/2019 Izzy Maher Final R53.83 Other fatigue 05/15/2019 Izzy Maher Final Z79.899 Other group home (current) drug therapy 05/15/2019 Izzy Maher Final B20 Human immunodeficiency virus [HIV] disease 05/15/2019 Izzy Maher Final Z79.899 Other group home (current) drug therapy 08/20/2019 Izzy Maher Final B20 Human immunodeficiency virus [HIV] disease 08/20/2019 Izzy Maher Final Z79.899 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 Results Test Result Range CHLAMYDIA GC BY PCR - 02/06/19 11:52 N. Gonorrhoeae Amplified Not Detected N ot Detected C. Trachomatis Amplified Not Detected N ot Detected Media Type Urine NRG CBCA - 02/06/19 11:52 MPV 9.3 ZZ 8.0-11.7 RDW 12.7 ZZ 11.5-14.0 URINALYSIS W/O CULTURE - 02/06/19 11:52 Nitrites, UA Negative Negative HEP C AB, REFLEX to QUANT AND GENOTYPE - 02/06/19 11:52 Hepatitis C Ab Interp Non-Reactive NRG Hepatitis C Virus Ab 0.04 0.00-0.90 HEPATITIS B SURFACE AB - 02/06/19 11:52 Hepatitis B Surface Ab Interp Positive NRG Hepatitis B Surface Ab 15.2 ZZ 0.0-8.5 HEPATITIS B SURFACE AG - 02/06/19 11:52 Hepatitis B Surface Ag 0.4 0.0-1.0 Hepatitis B Surface Ag Interp Negative Negative SYPHILIS (TP) AB - 02/06/19 11:52 Syphilis Antibody Interp Non-Reactive N on-Reactive Syphilis Antibody Quant 0.1 0.0-0. 9 CD4 - 02/06/19 11:52 Absolute CD4 1519 ZZ 430-1800 CD 4 % ([place] Cells) 51 ZZ 32-64 HEPATITIS A AB, TOTAL - 02/06/19 11:52 Hepatitis A Antibodies, Total Positive Negative HEPATITIS B CORE TOTAL - 02/06/19 11:52 Hepatitis B Core Antibodies, Total Positive Negative CMV AB, IGG - 02/06/19 11:52 CMV Antibody IgG 6.30 ZZ NRG TOXOPLASMA AB, IGG - 02/06/19 11:52 Toxoplasmosa gondii Ab, IgG <3.0 ZZ NR G CBCA - 05/15/19 12:30 WBC 7.6 ZZ 4.0-10.5 MCH 30.1 ZZ 27.0-31.0 TESTOSTERONE - 05/15/19 12:30 Testosterone 330 ZZ 350-890 CD4 - 05/15/19 12:30 CD 4 % ([place] Cells) 50 ZZ 32-64 CBCA - 08/20/19 14:57 WBC 8.4 k/uL 4.0-10.5 RDW 12.2 % 11.5-14.0 MCHC 34.2 g/dL 32.0-36.0 MCH 29.9 pg 27.0-31.0 Platelet Clumps 0 0-100 MCV 87.7 fL 78.0-100.0 Nucleated RBC Absolute 0.0 /uL 0.0-0.0 HCT 44.8 % 42.0-52.0 Hgb 15.3 g/dL 13.0-17.5 MPV 9.4 fL 8.0-11.7 Platelet Count 274 k/uL 150-450 RBC 5.11 M/uL 4.50-6.00 Differential? Auto NRG CD4 - 08/20/19 14:57 Lymphocyte Subset Panel 2 Information See Note NRG CD 4 % ([place] Cells) 48 % 32-64 Absolute CD4 1786 cells/uL 430-1800 Complete blood count (CBC) with automate d white blood cell (WBC) differential - 12/05/19 12:50 Blood leukocytes automated count (number/volume) 6.5 10*3/uL 4.3-11.0 Blood erythrocytes automated count (number/volume) 5.34 10*6/uL 4.35-5.85 Venous blood hemoglobin measurement (mass/volume) 15.7 g/dL 13.3-17.7 Blood hematocrit (volume fraction) 46 % 40-54 Automated erythrocyte mean corpuscular volume 86 [ foz_us] 80-99 Automated erythrocyte mean corpuscular h emoglobin (mass per erythrocyte) 29 pg 25-34 Automated erythrocyte mean corpuscular h emoglobin concentration measurement (mass/volume) 34 g/dL 32-36 Automated erythrocyte distribution width ratio 13. 1 % 10.0- 14.5 Automated blood platelet count (count/volume) 286 10*3/uL 130-400 Automated blood platelet mean volume measurement 8.8 [foz_us] 7.4-10.4 Automated blood neutrophils/100 leukocytes 45 % 42-75 Automated blood lymphocytes/100 leukocytes 44 % 12-44 Blood monocytes/100 leukocytes 11 % 0-12 Automated blood eosinophils/100 leukocytes 1 % 0-10 Automated blood basophils/100 leukocytes 0 % 0-10 Blood neutrophils automated count (number/volume) 2.9 10*3 1.8-7.8 Blood lymphocytes automated count (number/volume) 2.9 10*3 1.0-4.0 Blood monocytes automated count (number/volume) 0. 7 10*3 0.0-1.0 Automated eosinophil count 0.1 10*3/uL 0 .0-0.3 Automated blood basophil count (count/volume) 0.0 10*3/uL 0.0-0.1 PT panel in platelet poor plasma by coag ulation assay - 12/05/19 12:50 Prothrombin time (PT) in platelet poor plasma by coagu lation assay 14.2 s 12.2-14.7 INR in platelet poor plasma or blood by coagulation as say 1.1 0.8-1.4 Activated partial thromboplastin time (a PTT) in platelet poor plasma bycoagulation assay - 12/05/19 12:50 Activated partial thromboplastin time (a PTT) in platelet poor plasma bycoagulation assay 28 s 24-35 Comprehensive metabolic panel - 12/05/19 12:50 Serum or plasma sodium measurement (moles/volume) 139 mmol/L 135-145 Serum or plasma potassium measurement (moles/volume) 4.2 mmol/L 3.6-5.0 Serum or plasma chloride measurement (moles/volume) 105 mmol/L 98-107 Carbon dioxide 25 mmol/L 21-32 Serum or plasma anion gap determination (moles/volume) 9 mmol/L 5-14 Serum or plasma urea nitrogen measurement (mass/volume ) 16 mg/dL 7-18 Serum or plasma creatinine measurement (mass/volume) 1.26 mg/dL 0.60-1.30 Serum or plasma urea nitrogen/creatinine mass ratio 13 NRG Serum or plasma creatinine measurement w ith calculation of estimated glomerular filtration rate > NRG Serum or plasma glucose measurement (mass/volume) 99 mg/dL 70-105 Serum or plasma calcium measurement (mass/volume) 9.1 mg/dL 8.5-10.1 Serum or plasma total bilirubin measurement (mass/volu me) 0.3 mg/dL 0.1-1.0 Serum or plasma alkaline phosphatase cynthia surement (enzymatic activity/volume) 71 U/L 40-136 Serum or plasma aspartate aminotransfera se measurement (enzymatic activity/volume) 20 U/L 5-34 Serum or plasma alanine aminotransferase measurement (enzymatic activity/volume) 19 U/L 0-55 Serum or plasma protein measurement (mass/volume) 7.2 g/dL 6.4-8.2 Serum or plasma albumin measurement (mass/volume) 4.5 g/dL 3.2-4.5 CALCIUM CORRECTED 8.7 mg/dL 8.5-10.1 Magnesium - 12/05/19 12:50 Magnesium 2.0 mg/dL 1.6-2.4 Serum or plasma troponin i.cardiac measu rement (mass/volume) - 12/05/19 12:50 Serum or plasma troponin i.cardiac measurement (mass/v olume) < ng/mL <0.028 Myoglobin, serum - 12/05/19 12:50 Myoglobin, serum 57.1 ng/mL 10.0-92.0 Serum or plasma troponin i.cardiac measu rement (mass/volume) - 12/05/19 18:55 Serum or plasma troponin i.cardiac measurement (mass/v olume) < ng/mL <0.028 Complete blood count (CBC) with automate d white blood cell (WBC) differential - 12/06/19 01:28 Blood leukocytes automated count (number/volume) 7.0 10*3/uL 4.3-11.0 Blood erythrocytes automated count (number/volume) 5.21 10*6/uL 4.35-5.85 Venous blood hemoglobin measurement (mass/volume) 15.2 g/dL 13.3-17.7 Blood hematocrit (volume fraction) 45 % 40-54 Automated erythrocyte mean corpuscular volume 87 [ foz_us] 80-99 Automated erythrocyte mean corpuscular h emoglobin (mass per erythrocyte) 29 pg 25-34 Automated erythrocyte mean corpuscular h emoglobin concentration measurement (mass/volume) 34 g/dL 32-36 Automated erythrocyte distribution width ratio 13. 0 % 10.0- 14.5 Automated blood platelet count (count/volume) 254 10*3/uL 130-400 Automated blood platelet mean volume measurement 8.9 [foz_us] 7.4-10.4 Automated blood neutrophils/100 leukocytes 32 % 42-75 Automated blood lymphocytes/100 leukocytes 57 % 12-44 Blood monocytes/100 leukocytes 9 % 0-12 Automated blood eosinophils/100 leukocytes 2 % 0-10 Automated blood basophils/100 leukocytes 0 % 0-10 Blood neutrophils automated count (number/volume) 2.3 10*3 1.8-7.8 Blood lymphocytes automated count (number/volume) 4.0 10*3 1.0-4.0 Blood monocytes automated count (number/volume) 0. 6 10*3 0.0-1.0 Automated eosinophil count 0.2 10*3/uL 0 .0-0.3 Automated blood basophil count (count/volume) 0.0 10*3/uL 0.0-0.1 Comprehensive metabolic panel - 12/06/19 01:28 Serum or plasma sodium measurement (moles/volume) 138 mmol/L 135-145 Serum or plasma potassium measurement (moles/volume) 3.8 mmol/L 3.6-5.0 Serum or plasma chloride measurement (moles/volume) 106 mmol/L 98-107 Carbon dioxide 22 mmol/L 21-32 Serum or plasma anion gap determination (moles/volume) 10 mmol/L 5-14 Serum or plasma urea nitrogen measurement (mass/volume ) 13 mg/dL 7-18 Serum or plasma creatinine measurement (mass/volume) 0.96 mg/dL 0.60-1.30 Serum or plasma urea nitrogen/creatinine mass ratio 14 NRG Serum or plasma creatinine measurement w ith calculation of estimated glomerular filtration rate > NRG Serum or plasma glucose measurement (mass/volume) 93 mg/dL 70-105 Serum or plasma calcium measurement (mass/volume) 8.9 mg/dL 8.5-10.1 Serum or plasma total bilirubin measurement (mass/volu me) 0.3 mg/dL 0.1-1.0 Serum or plasma alkaline phosphatase cynthia surement (enzymatic activity/volume) 65 U/L 40-136 Serum or plasma aspartate aminotransfera se measurement (enzymatic activity/volume) 17 U/L 5-34 Serum or plasma alanine aminotransferase measurement (enzymatic activity/volume) 18 U/L 0-55 Serum or plasma protein measurement (mass/volume) 6.5 g/dL 6.4-8.2 Serum or plasma albumin measurement (mass/volume) 4.1 g/dL 3.2-4.5 CALCIUM CORRECTED 8.8 mg/dL 8.5-10.1 Serum or plasma troponin i.cardiac measu rement (mass/volume) - 12/06/19 01:28 Serum or plasma troponin i.cardiac measurement (mass/v olume) < ng/mL <0.028 Lipid 1996 panel - 12/06/19 01:28 Serum or plasma triglyceride measurement (mass/volume) 257 mg/dL <150 Serum or plasma cholesterol measurement (mass/volume) 187 mg/dL < 200 Serum or plasma cholesterol in HDL measurement (mass/v olume) 26 mg/dL 40-60 Cholesterol in LDL [mass/volume] in serum or plasma by direct assay 120 mg/dL 1-129 Serum or plasma cholesterol in VLDL measurement (mass/ volume) 51 mg/dL 5-40 PT panel in platelet poor plasma by coag ulation assay - 12/06/19 01:28 Prothrombin time (PT) in platelet poor plasma by coagu lation assay 13.8 s 12.2-14.7 INR in platelet poor plasma or blood by coagulation as say 1.0 0.8-1.4 Activated partial thromboplastin time (a PTT) in platelet poor plasma bycoagulation assay - 12/06/19 01:28 Activated partial thromboplastin time (a PTT) in platelet poor plasma bycoagulation assay 31 s 24-35 Serum or plasma phosphate measurement (m ass/volume) - 12/06/19 01:28 Serum or plasma phosphate measurement (mass/volume) 3.9 mg/dL 2.3-4.7 Magnesium - 12/06/19 01:28 Magnesium 2.1 mg/dL 1.6-2.4 Encounters ACCT No. Visit Date/Time Discharge Status Pt. Type Provider Facility Loc./Unit Complaint [id number] 11/13/2019 11:18:02 11/13/2019 23:59: 59 [facility] Outpatient SUJIT ANDERSON [id number] 10/07/2019 14:29:40 10/07/2019 23:59: 59 [facility] Outpatient SUJIT ANDERSON [id number] 07/09/2019 09:27:47 07/09/2019 23:59: 59 CLS Outpatient SUJIT ANDERSON [id number] 06/04/2019 09:01:23 06/04/2019 23:59: 59 CLS Outpatient SUJIT ANDERSON [id number] 05/13/2019 15:57:21 05/13/2019 23:59: 59 CLS Outpatient Marisol Zazueta [id number] 04/10/2019 09:39:36 04/10/2019 23:59: 59 CLS Outpatient JUSTINSUJIT ZAMAN Marisol [id number] 02/25/2019 15:46:44 02/25/2019 23:59: 59 CLS Outpatient SUJIT ANDERSON Marisol [id number] 12/13/2018 10:58:47 12/13/2018 23:59: 59 CLS Outpatient SUJIT ANDERSON Marisol [id number] 11/26/2018 15:11:09 11/26/2018 23:59: 59 CLS Outpatient BoAdam tomlin [id number] 11/05/2018 09:24:06 11/05/2018 23:59: 59 CLS Outpatient SUJIT ANDERSON Marisol [id number] 08/09/2018 15:45:28 08/09/2018 23:59: 59 CLS Outpatient BoAdam tomlin [id number] 07/26/2018 14:13:27 07/26/2018 23:59: 59 CLS Outpatient Adam Dykes [id number] 07/11/2018 16:14:14 07/11/2018 23:59: 59 CLS Outpatient JUSTINSUJIT ZAMAN Marisol [id number] 07/05/2018 09:47:27 07/05/2018 23:59: 59 CLS Outpatient SUJIT ANDERSON Marisol [id number] 07/02/2018 15:41:03 07/02/2018 23:59: 59 CLS Outpatient Adam Dykes [id number] 06/18/2018 10:20:12 06/18/2018 23:59: 59 CLS Outpatient BoAdam tomlin [id number] 06/11/2018 09:34:09 06/11/2018 23:59: 59 CLS Outpatient JUSTIN SUJIT Damon [id number] 06/05/2018 16:03:36 06/05/2018 23:59: 59 CLS Outpatient BoAdam tomlin [id number] 06/05/2018 11:25:41 06/05/2018 23:59: 59 CLS Outpatient JUSTIN SUJIT Damon [id number] 05/27/2018 10:56:30 05/27/2018 23:59: 59 CLS Outpatient JUSTIN SUJIT Damon [id number] 03/19/2018 12:03:15 03/19/2018 23:59: 59 CLS Outpatient JUSTIN SUJIT Damon [id number] 02/07/2018 14:20:59 02/07/2018 23:59: 59 CLS Outpatient JUSTIN, SUJIT Damon [id number] 12/26/2017 10:13:37 12/26/2017 23:59: 59 CLS Outpatient JUSTIN, SUJIT Damon [id number] 12/26/2017 09:43:34 12/26/2017 23:59: 59 CLS Outpatient JUSTIN, SUJIT Damon [id number] 12/26/2017 09:18:35 12/26/2017 23:59: 59 CLS Outpatient JUSTIN, SUJIT Damon [id number] 12/11/2017 09:21:52 12/11/2017 23:59: 59 CLS Outpatient JUSTIN, SUJIT Damon [id number] 09/20/2017 15:16:25 09/20/2017 23:59: 59 CLS Outpatient JUSTIN, SUJIT Damon [id number] 08/09/2017 14:07:28 08/09/2017 23:59: 59 CLS Outpatient JUSTIN, SUJIT Damon [id number] 06/28/2017 08:51:02 06/28/2017 23:59: 59 CLS Outpatient JUSTINSUJIT [id number] 04/12/2017 08:40:53 04/12/2017 23:59: 59 CLS Outpatient JUSTIN, SUJIT Damon [id number] 03/01/2017 10:14:01 03/01/2017 23:59: 59 CLS Outpatient JUSTINSUJIT [id number] 02/12/2017 17:35:28 02/12/2017 23:59: 59 CLS Outpatient JUSTIN, SUJIT Damon [id number] 01/10/2017 16:04:33 01/10/2017 23:59: 59 CLS Outpatient JUSTINSUJIT [id number] 01/10/2017 14:22:37 01/10/2017 23:59: 59 CLS Outpatient JUSTIN, SUJIT Damon [id number] 11/29/2016 11:04:56 11/29/2016 23:59: 59 CLS Outpatient JUSTIN, SUJIT Damon [id number] 08/10/2016 16:47:20 08/10/2016 23:59: 59 CLS Outpatient JUSTIN, SUJIT Damon [id number] 12/25/2014 11:45:06 12/25/2014 23:59: 59 CLS Outpatient JUSTINSUJIT [id number] 08/20/2019 16:22:00 23:59:00 DIS Outpatient Izzy Maher [facility]AL [facility] M EDICAL EXAM W/O ABNORMAL FINDINGS [id number] 05/15/2019 15:13:00 9 23:59:00 DIS Outpatient Izzy Maher [facility]OUBACAR ENCNTR FOR GENERAL ADULT M EDICAL EXAM W/O ABNORMAL FINDINGS [id number] 05/15/2019 15:01:00 9 23:59:00 DIS Outpatient Izzy Maher [facility] BOUBACAR LAB [id number] 02/06/2019 15:19:00 9 23:59:00 DIS Outpatient Izzy Maher [facility] BOUBACAR LAB [id number] 05/17/2019 01:40:25 ACT Document Registration [id number] 08/20/2019 16:22:00 Document Registration [id number] 05/15/2019 15:01:00 Document Registration [id number] 02/06/2019 15:19:00 Document Registration [id number] 12/05/2019 14:16:00 020 16:20:00 DIS Inpatient OLIVER DURON, CASTILLO [facility] ICU CHEST PAIN [id number] 03/04/2014 08:54:00 014 00:01:00 DIS Outpatient [id number] 11/18/2013 13:45:00 014 09:25:00 DIS Outpatient [id number] 09/11/2013 15:39:00 013 23:59:59 CLS Outpatient [id number] 09/02/2019 11:45:05 9 23:59:59 DIS [facility]patient [facility] [place] [id number] 08/20/2019 13:49:37 9 23:59:59 DIS Outpatient Izzy Maher [facility] 3month F/U [id number] 05/15/2019 10:31:00 9 23:59:59 DIS Outpatient [facility] [place] [id number] 05/15/2019 09:57:45 9 23:59:59 DIS Outpatient Izzy Maher [facility] [place] 3month F/U [id number] 02/06/2019 10:27:46 9 23:59:59 DIS Outpatient Izzy Maher [facility]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
--- OUTSIDE RECORDS SUMMARY | 2019-12-09 15:16 | XMS REPORT | Continuity of Care Document ---
Author Organization Unknown Address Unknown Phone Unavailable Allergies Active Description Code Type Severity Reaction Onset Reported/Identified Relationship to Patient Clinical Status Yes ibuprofen Drug N/A N/A Yes Zoloft Drug N/A N/A Yes ibuprofen Drug N/A N/A Yes Zoloft Drug N/A N/A Yes No Known Drug Allergies [id number] Drug Allergy Unknown N/A 12/05/2019 Medications Medication [...] disease 02/06/2019 Izzy Maher Final Z79.899 Other [facility] (current) drug therapy 05/15/2019 Izzy Maher Final B20 Human immunodeficiency virus [HIV] disease 05/15/2019 Izzy Maher Final R53.83 Other fatigue 05/15/2019 Izzy Maher Final Z79.899 Other [facility] (current) drug therapy 05/15/2019 Izzy Maher Final B20 Human immunodeficiency virus [HIV] disease 05/15/2019 Izzy Maher Final Z79.899 Other [facility] (current) drug therapy 08/20/2019 Izzy Maher Final B20 Human immunodeficiency virus [HIV] disease 08/20/2019 Izzy Maher Final 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 Type Provider Facility Loc./Unit Complaint [id number] 11/13/2019 11:18:02 11/13/2019 23:59: 59 [facility] Outpatient SUJIT ANDERSON [id number] 10/07/2019 14:29:40 10/07/2019 23:59: 59 CLS Outpatient SUJIT ANDERSON [id number] 07/09/2019 09:27:47 07/09/2019 23:59: 59 CLS Outpatient SUJIT ANDERSON [id number] 06/04/2019 09:01:23 06/04/2019 23:59: 59 CLS Outpatient SUJIT ANDERSON [id number] 05/13/2019 15:57:21 05/13/2019 23:59: 59 CLS Outpatient Marisol Zazueta [id number] 04/10/2019 09:39:36 04/10/2019 23:59: 59 CLS Outpatient JUSTINSUJIT ZAMAN Marisol [id number] 02/25/2019 15:46:44 02/25/2019 23:59: 59 CLS Outpatient SUJIT ANDERSON Marisol [id number] 12/13/2018 10:58:47 12/13/2018 23:59: 59 CLS Outpatient SUJIT ANDERSON Marisol [id number] 11/26/2018 15:11:09 11/26/2018 23:59: 59 CLS Outpatient BoAdam tomlin [id number] 11/05/2018 09:24:06 11/05/2018 23:59: 59 CLS Outpatient SUJIT ANDERSON Marisol [id number] 08/09/2018 15:45:28 08/09/2018 23:59: 59 CLS Outpatient BoAdam tomlin [id number] 07/26/2018 14:13:27 07/26/2018 23:59: 59 CLS Outpatient Adam Dykes [id number] 07/11/2018 16:14:14 07/11/2018 23:59: 59 CLS Outpatient JUSTINSUJIT ZAMAN Marisol [id number] 07/05/2018 09:47:27 07/05/2018 23:59: 59 CLS Outpatient SUJIT ANDERSON Marisol [id number] 07/02/2018 15:41:03 07/02/2018 23:59: 59 CLS Outpatient Adam Dykes [id number] 06/18/2018 10:20:12 06/18/2018 23:59: 59 CLS Outpatient BoAdam tomlin [id number] 06/11/2018 09:34:09 06/11/2018 23:59: 59 CLS Outpatient JUSTIN SUJIT Damon [id number] 06/05/2018 16:03:36 06/05/2018 23:59: 59 CLS Outpatient BoAdam tomlin [id number] 06/05/2018 11:25:41 06/05/2018 23:59: 59 CLS Outpatient JUSTIN SUJIT Damon [id number] 05/27/2018 10:56:30 05/27/2018 23:59: 59 CLS Outpatient JUSTIN SUJIT Damon [id number] 03/19/2018 12:03:15 03/19/2018 23:59: 59 CLS Outpatient JUSTIN SUJIT Damon [id number] 02/07/2018 14:20:59 02/07/2018 23:59: 59 CLS Outpatient JUSTIN, SUJIT Damon [id number] 12/26/2017 10:13:37 12/26/2017 23:59: 59 CLS Outpatient JUSTIN, SUJIT Damon [id number] 12/26/2017 09:43:34 12/26/2017 23:59: 59 CLS Outpatient JUSTIN, SUJIT Damon [id number] 12/26/2017 09:18:35 12/26/2017 23:59: 59 CLS Outpatient JUSTIN, SUJIT Damon [id number] 12/11/2017 09:21:52 12/11/2017 23:59: 59 CLS Outpatient JUSTIN, SUJIT Damon [id number] 09/20/2017 15:16:25 09/20/2017 23:59: 59 CLS Outpatient JUSTIN, SUJIT Damon [id number] 08/09/2017 14:07:28 08/09/2017 23:59: 59 CLS Outpatient JUSTIN, SUJIT Damon [id number] 06/28/2017 08:51:02 06/28/2017 23:59: 59 CLS Outpatient JUSTINSUJIT [id number] 04/12/2017 08:40:53 04/12/2017 23:59: 59 CLS Outpatient JUSTIN, SUJIT Damon [id number] 03/01/2017 10:14:01 03/01/2017 23:59: 59 CLS Outpatient JUSTINSUJIT [id number] 02/12/2017 17:35:28 02/12/2017 23:59: 59 CLS Outpatient JUSTIN, SUJIT Damon [id number] 01/10/2017 16:04:33 01/10/2017 23:59: 59 CLS Outpatient JUSTINSUJIT [id number] 01/10/2017 14:22:37 01/10/2017 23:59: 59 CLS Outpatient JUSTIN, SUJIT Damon [id number] 11/29/2016 11:04:56 11/29/2016 23:59: 59 CLS Outpatient JUSTIN, SUJIT Damon [id number] 08/10/2016 16:47:20 08/10/2016 23:59: 59 CLS Outpatient JUSTIN, SUJIT Damon [id number] 12/25/2014 11:45:06 12/25/2014 23:59: 59 CLS Outpatient JUSTINSUJIT [id number] 08/20/2019 16:22:00 23:59:00 DIS Outpatient Izzy Maher [facility]AR [facility]NCNTR FOR GENERAL ADULT M EDICAL EXAM W/O ABNORMAL FINDINGS [id number] 05/15/2019 15:13:00 9 23:59:00 DIS Outpatient Izzy Maher [facility] BOUBACAR ENCNTR FOR GENERAL ADULT M EDICAL EXAM W/O ABNORMAL FINDINGS [id number] 05/15/2019 15:01:00 9 23:59:00 DIS Outpatient Izzy Maher [facility] BOUBACAR LAB [id number] 02/06/2019 15:19:00 9 23:59:00 DIS Outpatient Izzy Maher [facility] BOUBACAR LAB [id number] 05/17/2019 01:40:25 ACT Document Registration [id number] 08/20/2019 16:22:00 Document Registration [id number] 05/15/2019 15:01:00 Document Registration [id number] 02/06/2019 15:19:00 Document Registration [id number] 12/05/2019 14:16:00 020 16:20:00 DIS Inpatient OLIVER DURON, CASTILLO [facility] ICU CHEST PAIN [id number] 03/04/2014 08:54:00 014 00:01:00 DIS Outpatient [id number] 11/18/2013 13:45:00 014 09:25:00 DIS Outpatient [id number] 09/11/2013 15:39:00 013 23:59:59 CLS Outpatient [id number] 09/02/2019 11:45:05 9 23:59:59 DIS Outpatient [facility] [id number] 08/20/2019 13:49:37 9 23:59:59 DIS Outpatient Izzy aMher [facility] 3month F/U [id number] 05/15/2019 10:31:00 9 23:59:59 [facility] [place] [facility] [id number] 05/15/2019 09:57:45 9 23:59:59 DIS Outpatient [facility] [place] [place] F/U [id number] 02/06/2019 10:27:46 9 23:59:59 DIS Outpatient [facility] [place] [facility] [place] - b20 GETTING RECORDS [id number] 01/28/2019 08:37:00 9 23:59:59 [facility] [place] [facility] [place]
== END 2019-12-06 16:20 | disposition home or self-care (01) ==
LOC: EDUNIT# 12:39 → ER 12:40 → ICU 14:16 → CSD 12-06 08:54
PROVIDERS: ADMIT Internal Medicine; ATTEND Internal Medicine
DX: R07.9 Chest pain, unspecified (principal); I10 Essential (primary) hypertension; E78.5 Hyperlipidemia, unspecified; E78.00 Pure hypercholesterolemia, unspecified; G47.30 Sleep apnea, unspecified; G89.29 Other chronic pain; M54.9 Dorsalgia, unspecified; K21.9 Gastro-esophageal reflux disease without esophagitis; K58.9 Irritable bowel syndrome, unspecified; J45.909 Unspecified asthma, uncomplicated; F41.9 Anxiety disorder, unspecified; F32.9 Major depressive disorder, single episode, unspecified; Z99.89 Dependence on other enabling machines and devices; Z79.899 Other long term (current) drug therapy
CPT/HCPCS: 36415; 71045; 80053; 80061; 83735; 83874; 84100; 84484; 85025; 85027; 85610; 85730; 93005; 93041; 93306; 93458

== ENCOUNTER 2020-12-29 09:55 | Day surgery (SDC) | payer MEDICAID ==
[2020-12-29] VITALS (9 sets, daily range): BP systolic 122–169; BP diastolic 64–83
[~2020-12-29] VITALS: Ht 190.5 cm; Wt 134.1 kg
[~2020-12-29 09:55] MED LIST: ALPR0.5T7 PO; CETI10TA17 PO; CIME300S4 PO; DESV50TA14 PO; GEMF600T88 PO; HYOS-20 PO; RT-ALBUINH IH; TEST100V3 IM
[2020-12-29 10:35] LABS: HEMOGLOBIN 15.7 g/dL (13.3-17.7); WHITE BLOOD COUNT 5.8 10^3/uL (4.3-11.0)
[2020-12-29 10:51] LABS: PROTHROMBIN TIME PATIENT 13.1 SEC (12.2-14.7)
[2020-12-29] MEDS ORDERED: ACETAMINOPHEN 500 MG TAB (TYLENOL) PO PRN (12:45)
[2020-12-29] MEDS ORDERED: IOHEXOL 240 MGI/ML 50 ML (OMNIPAQUE) VIAL IV ONE (15:45)
--- NOTE | 2020-12-30 12:12 | Diagnostic Imaging Report ---
INDICATION: Chronic low back pain. Patient brought to the procedure and placed on table in the prone position. Skin of the low back was prepped and draped in usual sterile fashion. Small amount of 1% lidocaine was utilized for local anesthesia. 22-gauge spinal needle was advanced to the lumbar thecal sac at the L3 level. 12 mL of Omnipaque 240 contrast was injected under fluoroscopic observation. Needle was removed and hemostasis was obtained. A 1 minute 34 seconds of fluoroscopic time was utilized. Spot images of the lumbar spine in multiple obliquities demonstrate contrast throughout the lumbar thecal sac. There are anterior extradural defects at all levels likely owing to disc/osteophyte complex. This will be evaluated with post-myelography CT. IMPRESSION: Lumbar myelogram, as described. Further evaluation will be performed post myelography CT. Dictated by: Dictated on workstation # [id number]
--- NOTE | 2020-12-30 12:16 | Diagnostic Imaging Report ---
PROCEDURE: CT lumbar spine with contrast. TECHNIQUE: Multiple contiguous axial images were obtained through the lumbar spine after the intrathecal administration of contrast. Sagittal and coronal reformations were then performed. Auto Exposure Controls were utilized during the CT exam to meet ALARA standards for radiation dose reduction. INDICATION: Low back pain. Patient status post myelogram. The curvature and alignment of lumbar spine is normal. No acute bony abnormality is detected. There is some generalized degenerative disc disease with variable disc space narrowing and marginal spurring. T12-L1: Central canal is widely patent. Neural foramina appear patent. L1-L2: Central canal and bilateral neural foramina appear to be patent. L2-L3: There is contrast within the disc space. There is broad-based disc/osteophyte complex flattening the ventral thecal sac, but central canal appears patent. There is narrowing of the lateral recesses bilaterally. There is moderate right-sided neural foraminal narrowing. Left neural foramen is patent. L3-L4: A broad-based disc/osteophyte complex indents the ventral thecal sac. There appears to be moderate trefoil stenosis to the canal. There is narrowing of bilateral lateral recesses as well as moderate bilateral neural foraminal stenosis. L4-L5: Broad-based disc/osteophyte complex produces some significant narrowing of the central canal. There is significant narrowing of bilateral neural foramina and bilateral lateral recesses. L5-S1: Thecal sac is widely patent. No significant neural foraminal stenosis is identified. IMPRESSION: Multilevel lumbar spondylosis with multilevel central canal or neural foraminal stenosis described level by level above. This appears to be most prominent at the L4-L5 level. Dictated by: Dictated on workstation # [id number]
== END 2020-12-29 14:40 | disposition home or self-care (01) ==
LOC: RAD 09:55 → SDC 12:10 → RAD 14:40
PROVIDERS: ATTEND Orthopaedic Surgery Orthopaedic Surgery of the Spine
DX: M47.816 Spondylosis without myelopathy or radiculopathy, lumbar region (principal); M48.061 Spinal stenosis, lumbar region without neurogenic claudication; G89.29 Other chronic pain; J45.909 Unspecified asthma, uncomplicated; I25.10 Atherosclerotic heart disease of native coronary artery without angina pectoris; I10 Essential (primary) hypertension; G47.33 Obstructive sleep apnea (adult) (pediatric); J18.9 Pneumonia, unspecified organism; M96.1 Postlaminectomy syndrome, not elsewhere classified; Z79.899 Other long term (current) drug therapy; Z80.9 Family history of malignant neoplasm, unspecified
CPT/HCPCS: 36415; 62284; 72132; 72265; 77002; 85027; 85610; 85730

== ENCOUNTER 2022-05-29 11:37 | Day surgery (SDC) | payer MEDICAID ==
[2022-05-29] VITALS (9 sets, daily range): BP systolic 128–151; BP diastolic 63–84
[~2022-05-29] VITALS: Ht 190.5 cm; Wt 145.0 kg
[~2022-05-29 11:37] MED LIST changes: -TEST100V3 IM; +TEST100V9 IM
[2022-05-29 12:26] LABS: HEMATOCRIT 49 % (40-54); HEMOGLOBIN 16.4 g/dL (13.3-17.7); MEAN CORPUSCULAR HEMOGLOBIN 29 pg (25-34); MEAN CORPUSCULAR HGB CONC 34 g/dL (32-36); MEAN CORPUSCULAR VOLUME 85 fL (80-99); PLATELET COUNT 289 10^3/uL (130-400); WHITE BLOOD COUNT 6.3 10^3/uL (4.3-11.0)
[2022-05-29 12:39] LABS: PROTHROMBIN TIME PATIENT 13.9 SEC (12.2-14.7)
[2022-05-29] MEDS ORDERED: GABA300C PO (12:39)
[2022-05-29] MEDS ORDERED: GEMF600T88 PO (12:40)
[2022-05-29] MEDS ORDERED: HYOS-6 PO (12:44)
[2022-05-29] MEDS ORDERED: LIDOCAINE 1% INJ 50 ML (XYLOCAINE) VIAL IJ ONE (12:45)
[2022-05-29] MEDS ORDERED: CLOR3.755 PO (12:58)
[2022-05-29] MEDS ORDERED: FURO20TA4 PO (12:58)
[2022-05-29] MEDS ORDERED: HYDR-34 PO (12:58)
[2022-05-29] MEDS ORDERED: OMEP40CA6 PO (12:58)
[2022-05-29] MEDS ORDERED: POTA10CA43 PO (12:58)
[2022-05-29] MEDS ORDERED: HYDR12.56 PO (12:58)
[2022-05-29] MEDS ORDERED: LISI10TA25 PO (12:58)
[2022-05-29] MEDS ORDERED: DESV100T PO (12:58)
[2022-05-29] MEDS ORDERED: CYCL10TA25 PO (12:58)
[2022-05-29] MEDS ORDERED: DICL75TA2 PO (12:58)
[2022-05-29] MEDS ORDERED: BUSP10TA95 PO (12:58)
[2022-05-29] MEDS ORDERED: IOHEXOL 240 MGI/ML 50 ML (OMNIPAQUE) VIAL IV ONE (13:30)
[2022-05-29] MEDS ORDERED: ACETAMINOPHEN 500 MG TAB (TYLENOL) PO PRN (13:45)
--- NOTE | 2022-05-29 14:45 | Diagnostic Imaging Report ---
PROCEDURE: CT lumbar spine with contrast. TECHNIQUE: Multiple contiguous axial images were obtained through the lumbar spine after the intrathecal administration of contrast. Sagittal and coronal reformations were then performed. Auto Exposure Controls were utilized during the CT exam to meet ALARA standards for radiation dose reduction. INDICATION: Low back pain. Prior lumbar spine surgery. COMPARISON: CT lumbar spine myelogram 12/29/2020. Lumbar spine myelogram 05/29/2022. FINDINGS: There is adequate opacification of the thecal sac. 5 lumbar-type vertebral bodies. Normal alignment. Vertebral body heights preserved. Interval postoperative findings of the L4 laminectomy. Partial laminectomy at L3. There are also new but chronic appearing bilateral L3 pars defects. No fluid collections in the postoperative soft tissues. Visualized pelvis is intact. No acute findings in the visualized paravertebral soft tissues. The conus terminates at L1-L2. Normal morphology of the cauda equina without evidence of arachnoiditis. L1-L2: No spinal canal, lateral recess or neural foraminal narrowing. L2-L3: Broad-based disc bulging results in mild spinal canal and bilateral lateral recess narrowing. Mild to moderate bilateral neural foraminal narrowing. L3-L4: Spinal canal appears decompressed well. Disc space height loss and osteophytic ridging results in severe left and moderate right neural foraminal narrowing. Interval progression of degenerative endplate changes on the left including subchondral cystic formation. L4-L5: Spinal canal is decompressed well. Osteophytic ridging and disc space height loss results in severe right and moderate to severe left neural foraminal narrowing. There has also been progression of degenerative endplate changes at this level including subchondral cystic formation. L5-S1: No spinal canal or lateral recess narrowing. Mild facet arthropathy. Mild bilateral neural foraminal narrowing. IMPRESSION: 1. Interval postoperative changes of an L4 laminectomy with partial laminectomy at L3. There are no fluid collection seen in the postoperative soft tissues. 2. Bilateral L3 pars defects are new since the prior exam but appear chronic. 3. Interval progression of degenerative endplate changes including subchondral cystic formation at L3-L5. 4. Spondylotic changes result in scattered high-grade neural foraminal narrowing detailed above level by level. No high-grade spinal canal stenosis. Dictated by: Dictated on workstation # [id number]
--- NOTE | 2022-05-30 08:47 | Diagnostic Imaging Report ---
INDICATION: Low back pain. Patient brought to fluoroscopy suite, placed in table in prone position. Skin of the low back was prepped and draped in usual sterile fashion. Small amount of 1% lidocaine was utilized for local anesthesia. 20-gauge needle was advanced into the lumbar thecal sac at the L4 level. 12 mL of Omnipaque 240 contrast was injected under fluoroscopic observation. 45 seconds of fluoroscopic time was utilized. Needle was removed and hemostasis was obtained. Multiple spot films of the lumbar spine were obtained in multiple obliquities. Patient tolerated procedure well and was sent to CT for post mammography CT in satisfactory condition. Multiple images demonstrate contrast within the lumbar thecal sac. No obstruction to the contrast column is identified. There is filling of multiple nerve root sleeves. Further evaluation will be performed with post myelography CT. IMPRESSION: Lumbar myelography, as described. Further evaluation will be performed with post myelography CT. Dictated by: Dictated on workstation # [id number]
== END 2022-05-29 16:30 | disposition home or self-care (01) ==
LOC: RAD 11:37 → SDC 13:23 → RAD 16:30
PROVIDERS: ATTEND Orthopaedic Surgery Orthopaedic Surgery of the Spine
DX: M54.50 Low back pain, unspecified (principal)
CPT/HCPCS: 36415; 62284; 72132; 72265; 77002; 85027; 85610; 85730